=== PATIENT | female | born 1945 | race Caucasian/White ===

== ENCOUNTER → 2016-07-31 | Outpatient (CLI) | payer BC ==
[~2016-07-31] MED LIST: AMX500 PO; ATOR10TA82 PO; CHOL1CAP57 PO; CYAN100020 PO; EVS60 PO; HYDC25 PO; LEVO75TA PO; METFTAB PO; SPIR25TA PO; SYN100 PO; TRAM-10 PO; ZNTT/150 PO
[2016-07-31 09:42] LABS: BASO % 0.5 %; BASO ABS # 0.04 K/uL (0-0.2); COMPLETE YES; EOS % 4.6 %; HEMATOCRIT 43.9 % (37-47); IG% 0.3 %; LYMPH % 29.1 %; MEAN PLATELET VOLUME 10.1 fL (7.4-10.4); NEUT % 51.5 %; PLATELET COUNT 280 K/uL (130-400); RED BLOOD COUNT 4.67 M/uL (4.2-5.4); WHITE BLOOD COUNT 7.56 K/uL (4.8-10.8)
[2016-07-31 10:20] LABS: ALT/SGPT 24 U/L (12-78); AST/SGOT 19 U/L (15-37); BLOOD UREA NITROGEN 17 mg/dl (7-18); BUN/CREATININE RATIO 23.6 (10-20); CALCIUM 9.2 mg/dl (8.5-10.1); CARBON DIOXIDE 33 mmol/L (21-32); CHLORIDE 101 mmol/L (98-107); CREATININE 0.72 mg/dl (0.60-1.20); GLUCOSE 81 mg/dl (70-99); POTASSIUM 3.5 mmol/L (3.5-5.1); SODIUM 138 mmol/L (136-145)
[2016-07-31 10:21] LABS: ESTIMATED AVERAGE GLUCOSE 128 mg/dl; HA1C FLAG Normal (Normal)
[2016-07-31 10:32] LABS: CHOLESTEROL 184 mg/dl (0-200); CHOLESTEROL/HDL RATIO 1.7; HDL CHOLESTEROL 106 mg/dl; LDL CHOLESTEROL CALCULATED 66 mg/dl; THYROID STIMULATING HORMONE 0.238 uIu/ml (0.300-4.500); TRIGLYCERIDES 60 mg/dl (0-150); VERY LOW DENSITY LIPOPROT CALC 12 mg/dl
[2016-07-31 11:04] LABS: RATIO 22.7 mcg/mg (0-30.0)
== END | disposition home or self-care (01) ==
LOC: C.LAB 07:32
PROVIDERS: ATTEND Internal Medicine
DX: E78.5 Hyperlipidemia, unspecified (principal); E11.9 Type 2 diabetes mellitus without complications; M48.00 Spinal stenosis, site unspecified; I10 Essential (primary) hypertension; E03.9 Hypothyroidism, unspecified

== ENCOUNTER → 2016-09-28 | Outpatient (CLI) | payer BC ==
--- NOTE | 2016-09-29 08:09 | MAMMOGRAPHY REPORT ---
BILATERAL DIGITAL SCREENING MAMMOGRAM WITH CAD: 09/28/2016 CLINICAL HISTORY: Routine screening. Patient has no complaints. TECHNIQUE: Current study was also evaluated with a Computer Aided Detection (CAD) system. Bilateral CC and MLO views were obtained. COMPARISON: Prior outside mammograms dated 08/30/2012, 08/26/2014, 08/26/2013, 08/20/2012. BREAST COMPOSITION: There are scattered areas of fibroglandular density in both breasts. FINDINGS: No suspicious masses, calcifications, or areas of architectural distortion are noted in ei ther breast. There has been no significant interval change compared to prior exams. Scattered bilate ral benign-appearing calcifications are again noted. IMPRESSION: ACR BI-RADS CATEGORY 2: BENIGN There is no mammographic evidence of malignancy. A 1 year screening mammogram is recommended. The pa tient will receive written notification of the results. Approximately 10% of breast cancers are not detected with mammography. A negative mammographic report should not delay biopsy if a clinically suggestive mass is present. Lizzeth Stein M.D. ah/:09/28/2016 10:34:42 Lead Driver: Karen Porter RT(R)(M)(BD), [facility] letter sent: Normal 1/2 BI-RADS Code: ACR BI-RADS Category 2: Benign
== END | disposition home or self-care (01) ==
LOC: C.MAMM 09:32
PROVIDERS: ATTEND Obstetrics & Gynecology
DX: Z12.31 Encounter for screening mammogram for malignant neoplasm of breast (principal)

== ENCOUNTER → 2016-12-06 | Outpatient (CLI) | payer BC ==
[~2016-12-06] MED LIST changes: -ATOR10TA82 PO; +ATOR10TA88 PO
--- NOTE | 2016-12-06 11:00 | DIAGNOSTIC IMAGING REPORT ---
CHEST 2 VIEWS ROUTINE HISTORY: 71 years-old Female shortness of breath on exertion. History of prior pneumonia. COMPARISON: Chest radiograph 08/15/2005 TECHNIQUE: Frontal and lateral views of the chest FINDINGS: Cardiac silhouette is within normal limits. There is atherosclerosis of the aorta. Lungs are hyperinflated with diaphragmatic flattening. Patchy lateral right upper lobe opacities are new from 08/15/2005 study. Subsegmental linear opacity of the lingula is seen as well which does suggest atelectasis. No pneumothorax or pleural effusion. Mild biapical pleural-parenchymal scarring is noted. The bones are moderately demineralized appear grossly intact. There is mild convex right curvature of the midthoracic spine. IMPRESSION: e 1. Patchy lateral right upper lobe opacities are new from 08/15/2005 and favors parenchymal scarring, however developing pneumonia may have a similar appearance. 2. lingular atelectasis with background emphysema. The above report was generated using voice recognition software. It may contain grammatical, syntax or spelling errors. Electronically signed by: Tin Almanzar M.D. 12/06/2016 10:58 AM Dictated Date/Time: 12/06/2016 10:55 AM
== END | disposition home or self-care (01) ==
LOC: C.RAD 10:13
PROVIDERS: ATTEND Internal Medicine
DX: J18.9 Pneumonia, unspecified organism (principal); J98.11 Atelectasis; J43.9 Emphysema, unspecified

== ENCOUNTER → 2016-12-06 | Outpatient (CLI) | payer BC ==
[2016-12-06 15:42] LABS: BASO % 0.7 %; BASO ABS # 0.05 K/uL (0-0.2); COMPLETE YES; EOS % 4.2 %; HEMATOCRIT 41.9 % (37-47); LYMPH % 28.3 %; LYMPH ABS # 1.93 K/uL (1.2-3.4); MEAN CELL VOLUME 93.9 fL (80-100); MEAN CORPUSCULAR HEMOGLOBIN 30.7 pg (25-34); MEAN CORPUSCULAR HGB CONC 32.7 g/dl (32-36); MEAN PLATELET VOLUME 9.4 fL (7.4-10.4); MONO % 13.8 %; PLATELET COUNT 281 K/uL (130-400); RED BLOOD COUNT 4.46 M/uL (4.2-5.4); WHITE BLOOD COUNT 6.83 K/uL (4.8-10.8)
== END | disposition home or self-care (01) ==
LOC: C.LAB1850 14:59
PROVIDERS: ATTEND Nurse Practitioner Adult Health
DX: J18.9 Pneumonia, unspecified organism (principal)

== ENCOUNTER → 2016-12-25 | Outpatient (CLI) | payer BC ==
[2016-12-25 09:40] LABS: BASO % 0.6 %; BASO ABS # 0.04 K/uL (0-0.2); COMPLETE YES; EOS % 4.1 %; IG% 0.4 %; LYMPH % 27.7 %; LYMPH ABS # 1.87 K/uL (1.2-3.4); MEAN CELL VOLUME 91.9 fL (80-100); MEAN CORPUSCULAR HEMOGLOBIN 31.5 pg (25-34); MEAN CORPUSCULAR HGB CONC 34.3 g/dl (32-36); MEAN PLATELET VOLUME 9.8 fL (7.4-10.4); MONO % 15.1 %; NEUT % 52.1 %; PLATELET COUNT 287 K/uL (130-400); RED BLOOD COUNT 4.57 M/uL (4.2-5.4); WHITE BLOOD COUNT 6.76 K/uL (4.8-10.8)
[2016-12-25 09:46] LABS: PROTHROMBIN TIME (PATIENT) 10.8 SECONDS (9.0-12.0)
[2016-12-25 09:59] LABS: ESTIMATED AVERAGE GLUCOSE 128 mg/dl; HA1C FLAG Normal (Normal)
[2016-12-25 10:08] LABS: ALKALINE PHOSPHATASE 52 U/L (45-117); ALT/SGPT 20 U/L (12-78); AST/SGOT 23 U/L (15-37); BLOOD UREA NITROGEN 18 mg/dl (7-18); BUN/CREATININE RATIO 25.9 (10-20); CALCIUM 9.5 mg/dl (8.5-10.1); CARBON DIOXIDE 32 mmol/L (21-32); CHLORIDE 102 mmol/L (98-107); CREATININE 0.68 mg/dl (0.60-1.20); GLUCOSE 80 mg/dl (70-99); HDL CHOLESTEROL 86 mg/dl; POTASSIUM 4.3 mmol/L (3.5-5.1); SODIUM 140 mmol/L (136-145)
[2016-12-25 10:18] LABS: CHOLESTEROL 164 mg/dl (0-200); CHOLESTEROL/HDL RATIO 1.9; LDL CHOLESTEROL CALCULATED 67 mg/dl; THYROID STIMULATING HORMONE 0.033 uIu/ml (0.300-4.500); TRIGLYCERIDES 56 mg/dl (0-150); VERY LOW DENSITY LIPOPROT CALC 11 mg/dl
== END | disposition home or self-care (01) ==
LOC: C.LAB 08:00
PROVIDERS: ATTEND Internal Medicine Pulmonary Disease
DX: E11.9 Type 2 diabetes mellitus without complications (principal); E78.5 Hyperlipidemia, unspecified; J18.9 Pneumonia, unspecified organism; E03.9 Hypothyroidism, unspecified

== ENCOUNTER → 2017-01-03 | Outpatient (CLI) | payer BC ==
[~2017-01-03] MED LIST changes: +OPTIRAY 320 IV PRN
--- NOTE | 2017-01-03 08:44 | DIAGNOSTIC IMAGING REPORT ---
CT OF THE CHEST WITH IV CONTRAST CLINICAL HISTORY: J18.9 [id number], shortness of breath COMPARISON STUDY: Chest x-ray dated 12/06/2016 TECHNIQUE: Following the IV administration of 92 mL of Optiray-320, CT of the thorax was performed from the thoracic inlet to the lung bases. Images are reviewed in the axial, sagittal, and coronal planes. IV contrast was administered without complication. A dose lowering technique was utilized adhering to the principles of ALARA. CT DOSE: 184.95 mGycm FINDINGS: Thyroid: Imaged portions of the thyroid gland are normal in appearance. Thoracic aorta: The thoracic aorta is normal in course and caliber, noting standard 3-vessel arch anatomy. No aneurysm or dissection is seen. Pulmonary vasculature: The pulmonary trunk is normal in caliber. There are no central filling defects identified to suggest pulmonary embolus. Note that this examination was not protocoled for the evaluation of pulmonary emboli. HEART: The heart is normal in size and configuration, without pericardial effusion. Lungs and pleural spaces: There is severe pulmonary emphysema. There is a calcified right upper lobe granuloma. There is an irregular flat 21 x 9 mm right upper lobe perifissural opacity, statistically inflammatory/postinflammatory. There is an irregular 16mm subpleural right upper lobe opacity. This corresponds to the chest x-ray abnormality. The appearance favors an area of postinflammatory scarring. The lesion is however nonspecific and close follow-up will be necessary. A three-month follow-up CT scan is recommended. Mediastinum: There is no mediastinal lymphadenopathy. Kisha: Clear. Axilla: Clear. Upper abdomen: There is 16 mm right renal cyst Skeletal structures: There are no lytic or blastic osseous lesions. IMPRESSION: 1. 16 mm irregular right upper lobe subpleural opacity. The appearance favors an area of postinflammatory scarring. The lesion is however nonspecific and [address] scan follow-up is recommended. 2. Irregular flat 21 x 9 mm right upper lobe perifissural opacity. This is likely inflammatory/postinflammatory 3. No evidence of pathologic adenopathy 4. Severe emphysema Electronically signed by: Yandel Reddy M.D. 01/03/2017 8:42 AM Dictated Date/Time: 01/03/2017 8:35 AM
== END | disposition home or self-care (01) ==
LOC: C.CTS 07:59
PROVIDERS: ATTEND Internal Medicine Pulmonary Disease
DX: J18.9 Pneumonia, unspecified organism (principal); R05 Cough; R91.8 Other nonspecific abnormal finding of lung field; J43.9 Emphysema, unspecified

== ENCOUNTER → 2017-01-09 | Day surgery (SDC) | payer BC ==
[2017-01-09] VITALS (14 sets, daily range): BP systolic 114–149; BP diastolic 50–84; PULSE 66–92; TEMP 36–36.6; O2SAT 16–100; Ht 161.3 cm; Wt 51.5 kg
[~2017-01-09] VITALS: Ht 161.3 cm; Wt 51.5 kg
[~2017-01-09] MED LIST changes: +FENTANYL CITRATE INJ 50 MCG/1 ML 2 ML VIAL IV ONE; +MIDAZOLAM HCL 5 MG/ML 1 ML VIAL IV ONE; +NURSING VERBAL MED ORDER ONE; +ONDANSETRON INJ 2 MG/ML 2 ML VIAL ONE; -OPTIRAY 320 IV PRN
--- NOTE | 2017-01-09 06:56 | History and Physical ---
History & Physical Date Jan 09, 2017. Chief Complaint Progressive shortness of breath on exertion History of Present Illness The patient is a 71 year old female with complaints of Progressive shortness of breath on exertion 71-year-old female currently being worked up by Dr. Isaac Danielle with notable shortness of with exertion. 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 Danielle by Dr. Calix for pulmonary evaluation. Patient does have a smoking history of approximately 12 pack per day but quit 25 years prior. 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 More recently she notes said household activities are also making her short of breath and notes in non productive cough over this time as well. She was feeling when down in notably fatigue after withdrawing from tramadol for multiple years secondary to chronic pain when she went to an urgent care center and was given multiple antibiotics including doxycycline and Levaquin. Most of her signs and symptoms improved but was with left with residual cough in this progressive shortness of breath. She has been treated with an albuterol metered dose inhaler along with prednisone, doxycycline, azithromycin with no notable improvement. Chest x-ray on 12/06/2016 showed lingular atelectasis with patchy 2 right upper opacification. A CT of the thorax was obtained 01/03/2017 noting diffuse emphysematous changes with right upper lobe with anterior and posterior infiltrates. Past Medical/Surgical History PmHx: ActiveProblems_10_twCiteListControlStart Abnormal finding on GI tract imaging Carpal tunnel syndrome Cough Cyst of kidney, acquired Dysphagia Gastric ulcer Hearing loss Hyperlipidemia Hypertension Hypothyroidism -post radiation iodine treatment Microalbuminuria Osteoarthritis Osteoporosis Raynaud's disease Serum lipase elevation SOBOE (shortness of breath on exertion) Spinal stenosis Type 2 diabetes mellitus Venous insufficiency (chronic) (peripheral) Past surgical history 1. Need for prophylactic measure 2. History of Oral Surgery Tooth Extraction 3. History of Pilonidal Cyst Resection 4. History of Tonsillectomy 5. History of Total Hip Replacement 6. History of Tubal Ligation Social History Being A Social Drinker Former smoker (Z87.891) Marital History - Currently Occupation: Retired Uses Safety Equipment - Seatbelts Current Meds 1. Calcium + D3 600-200 MG-UNIT Oral Tablet; Take 1 tablet twice daily; 2. Centrum Silver Oral Tablet; TAKE 1 TABLET DAILY; 3. Vitamin B-12 ER 1000 MCG Oral Tablet Extended Release; TAKE 1 TABLET DAILY 4. Atorvastatin Calcium 10 MG Oral Tablet; Take 1 tablet daily; 5. Levothyroxine Sodium 100 MCG Oral Tablet; TAKE 1 TABLET DAILY DIRECTED 6. TraMADol HCl - 50 MG Oral Tablet; TAKE 1 TABLET EVERY 12 HOURS NEEDED; 7. Raloxifene HCl - 60 MG Oral Tablet; Take 1 tablet daily; 8. Amoxicillin 500 MG Oral Capsule; TAKE 4 CAPSULES 1 HOUR PRIOR TO DENTAL 9. Amoxicillin-Pot Clavulanate 875-125 MG Oral Tablet; TAKE 1 TABLET TWICE DAILY 10. Ondansetron HCl - 4 MG Oral Tablet; 1 tabet every 8 hours as needed for nausea; 11. Ventolin HFA 108 (90 Base) MCG/ACT Inhalation Aerosol Solution; INHALE 1 TO 2 PUFFS 12. Gabapentin 300 MG Oral Capsule; TAKE 1 CAPSULE AT BEDTIME; 13. Esther Contour Monitor w/Device Kit; Test once daily as directed. Dx: 250.6; 14. MetFORMIN HCl ER 500 MG Oral Tablet Extended Release 24 Hour; TAKE 4 TABLET 15. HydroCHLOROthiazide 25 MG Oral Tablet; TAKE 1 TABLET DAILY Requested for: 16. Spironolactone 25 MG Oral Tablet; TAKE 1 TABLET DAILY; 17. Vitamin D3 1000 UNIT Oral Tablet; TAKE 2 TABLET Daily; 18. Zantac 150 MG Oral Tablet; TAKE 1 TABLET DAILY IN THE EVENING; Allergies 1. hydrocodone 2. Levaquin 3. Sulfa Drugs Additional History Hepatic Disease: No Endocrine Disorder: No Kidney Disease: No Hypertension: Yes Heart Disease: No Bleeding Tendencies: No Infectious Diseases: No Allergies Coded Allergies: Sulfa Antibiotics (Verified Allergy, Mild, ., 01/03/17) Home Medications Scheduled Amoxicillin (Amoxil *), 2,000 MG PO UD Atorvastatin (Lipitor), 10 MG PO DAILY Cholecalciferol (Vitamin D3), 1,000 INTER.UNIT PO BID Cyanocobalamin (Vitamin B12), 1,000 MCG PO DAILY Hydrochlorothiazide (Hctz *), 25 MG PO DAILY Levothyroxine (Synthroid *), 0.1 MG PO DAILY Metformin Ext Rel (Glucophage Ext Rel), 1,000 MG PO BIDM Raloxifene (Evista *), 60 MG PO DAILY Ranitidine (Zantac), 150 MG PO QPM Spironolactone (Aldactone), 25 MG PO DAILY Tramadol (Ultram), 50 MG PO BID Physical Examination Skin: warm/dry, no rash Eyes: normal inspection, EOMI, sclerae normal ENT: normal ENT inspection, pharynx normal Head: normocephalic, atraumatic Neck: supple, no adenopathy, trachea midline Respiratory/Chest: lungs clear, normal breath sounds, no respiratory distress Cardiovascular: regular rate, rhythm, no edema, no murmur Abdomen / GI: normal bowel sounds, non tender Back: normal inspection Extremities: normal inspection, normal range of motion Neurologic/Psych: no motor/sensory deficits, alert, normal reflexes, oriented x 3 Diagnosis Progressive dyspnea on exertion ASA Classification: ASA Class II Plan of Treatment Flexible bronchoscopy with conscious sedation and bronchial lavage
--- NOTE | 2017-01-09 10:18 | History & Physical Bridge Note ---
H&P Re-Evaluation Bridge Note: I have examined the patient, reviewed the History & Physical and in the interval since the performance of the History & Physical I have noted the following changes of clinical significance: No changes noted
--- NOTE | 2017-01-09 10:19 | Procedure Note ---
Pre-Mod Sedation Assessment General Date of Moderate Sedation: Jan 09, 2017. Vital Signs: Vital Signs Past 12 Hours Date Time Temp Pulse Resp B/P (MAP) Pulse Ox O2 Delivery O2 Flow Rate FiO2 01/09/17 09:20 36.5 79 18 149/69 (95) 97 Room Air Review Cardiovascular: regular rate, rhythm, no edema, no gallop, no JVD, no murmur Abdomen: normal bowel sounds, non tender, soft, no organomegaly Lungs: chest non-tender, lungs clear, normal breath sounds Airway Class: II Pre-Sedation Airway Assessment Oral Cavity: Capped Teeth Short Thick Neck: No Hx of Sleep Apnea: No Smoking Status: Former Smoker Mallampati Classification: Class II ASA Classification: Class II Procedure Planning Contraindications-for Mod Sed: None Yes Notes The planned sedation has been discussed with the patient and consent obtained. I have identified the patient, determined the appropriateness of sedation and have assessed the patient immediately prior to the procedure. All medicine(s) and interventions are by my order.
--- NOTE | 2017-01-09 11:06 | Bronchoscopy Procedure Note ---
Bronchoscopy Procedure Note Procedure: Bronchoscopy, conscious sedation, bronchial lavage right upper lobe Consent: Obtained through the patient placed into the chart Pre-procedural diagnosis: Chronic dyspnea on exertion with associated cough Post-procedural diagnosis: Chronic dyspnea on exertion with associated cough Start time: 1040 End time: 1058 Total time: 18 minutes Analgesia: 2% liquid lidocaine: Via nebulizer 4% gel lidocaine: Via right naris 2% liquid lidocaine: Via bronchoscopy Sedation: Versed IV: 75mg Fentanyl IV: 3 g Zofran IV: 4 mg Procedure: The Olympus video bronchoscope was used for this procedure and passed down through the right naris Right naris/posterior naris/posterior oropharynx: Anatomically within normal limits Glottis: Anatomically within normal limits Vocal cords: Proper abduction and abduction, anatomically within normal limits Subglottis/trachea/Kalee: Anatomically within normal limits Right bronchial tree: Right mainstem bronchus: Anatomically within normal limits Right upper lobe: Anatomically within normal limits Bronchus intermedius: Anatomically within normal limits Right middle lobe: Anatomically within normal limits Right lower lobe: Anatomically within normal limits Findings: No significant findings noted Left bronchial tree: Left mainstem bronchus: Anatomically within normal limits Left upper lobe: Anatomically within normal limits Lingula: Anatomically within normal limits Left lower lobe: Anatomically within normal limits Findings: No significant findings noted Bronchial alveolar lavage: Right upper lobe EBL: None Complications: None Follow-up: In the [facility]
--- NOTE | 2017-01-09 11:09 | Discharge Instructions ---
Discharge Instructions Date of Service Jan 09, 2017. Admission Reason for Admission: Cough, Sob, Pneumonia Discharge Discharge Diagnosis / Problem: progressive dyspnea with associated cough and abnormal changes on CAT scan Discharge Goals Goal(s): Diagnostic testing Activity Recommendations Activity Limitations: resume your previous activity . Current Hospital Diet Patient's current hospital diet: Discharge Diet Recommended Diet: Regular Diet Procedures Procedures Performed: Bronchoscopy, conscious sedation, bronchial washing of the right upper lobe Pending Studies Studies pending at discharge: no Laboratory Results Hemoglobin A1c Test 12/25/16 08:15 Range/Units Estimated Average Glucose 128 mg/dl Hemoglobin A1c 6.1 H 4.5-5.6 % Lipid Panel Test 12/25/16 08:15 Range/Units Triglycerides Level 56 0-150 mg/dl Cholesterol Level 164 0-200 mg/dl HDL Cholesterol 86 mg/dl Cholesterol/HDL Ratio 1.9 LDL Cholesterol, Calculated 67 mg/dl Medical Emergencies . Who to Call and When: Medical Emergencies: If at any time you feel your situation is an emergency, please call 911 immediately. . Non-Emergent Contact Non-Emergency issues call your: Character Impersonator . . "Provider Documentation" section prepared by Juwan Yen. . VTE Core Measure Inpt VTE Proph given/why not?: Treatment not indicated
== END | disposition home or self-care (01) ==
LOC: C.ACU 08:01
PROVIDERS: ATTEND Internal Medicine Critical Care Medicine
DX: R06.00 Dyspnea, unspecified (principal); R05 Cough; I10 Essential (primary) hypertension; E78.5 Hyperlipidemia, unspecified; E89.0 Postprocedural hypothyroidism; R80.9 Proteinuria, unspecified; M81.0 Age-related osteoporosis without current pathological fracture; I73.00 Raynaud's syndrome without gangrene; E11.51 Type 2 diabetes mellitus with diabetic peripheral angiopathy without gangrene; Z87.891 Personal history of nicotine dependence; Z79.899 Other long term (current) drug therapy

== ENCOUNTER → 2017-08-02 | Outpatient (CLI) | payer BC ==
[~2017-08-02] MED LIST changes: +ATOR10TA82 PO; -ATOR10TA88 PO; -FENTANYL CITRATE INJ 50 MCG/1 ML 2 ML VIAL IV ONE; -MIDAZOLAM HCL 5 MG/ML 1 ML VIAL IV ONE; -NURSING VERBAL MED ORDER ONE; -ONDANSETRON INJ 2 MG/ML 2 ML VIAL ONE; +RANI150T85 PO; -SYN100 PO; -ZNTT/150 PO
[2017-08-02 10:10] LABS: BLOOD UREA NITROGEN 17 mg/dl (7-18); CALCIUM 9.6 mg/dl (8.5-10.1); CARBON DIOXIDE 27 mmol/L (21-32); CREATININE 0.72 mg/dl (0.60-1.20); GLUCOSE 77 mg/dl (70-99); POTASSIUM 3.7 mmol/L (3.5-5.1); SODIUM 135 mmol/L (136-145)
[2017-08-02 10:12] LABS: ALT/SGPT 18 U/L (12-78); AST/SGOT 19 U/L (15-37)
== END | disposition home or self-care (01) ==
LOC: C.LAB 08:06
PROVIDERS: ATTEND Internal Medicine
DX: E11.9 Type 2 diabetes mellitus without complications (principal); E78.5 Hyperlipidemia, unspecified

== ENCOUNTER → 2017-08-27 | Outpatient (CLI) | payer BC ==
[2017-08-27 10:35] LABS: HEMOGLOBIN A1C 6.2 % (4.5-5.6)
[2017-08-27 17:13] LABS: CREATININE RANDOM URINE 65.9 mg/dl
== END | disposition home or self-care (01) ==
LOC: C.LAB 08:08
PROVIDERS: ATTEND Internal Medicine
DX: E11.9 Type 2 diabetes mellitus without complications (principal); E78.5 Hyperlipidemia, unspecified; E03.9 Hypothyroidism, unspecified; M81.0 Age-related osteoporosis without current pathological fracture

== ENCOUNTER 2018-12-04 05:37 | Inpatient (IN) ==
--- NOTE | 2018-11-25 14:54 | PAT Medication Instructions ---
Medication Instructions Date of Service November 25, 2018 Home Medications Medication Instructions Recorded metformin ER 500 mg 1,000 mg PO BID #360 tab 11/18/18 tablet,extended release 24 hr atorvastatin 10 mg tablet 10 mg PO HS cholecalciferol (vitamin D3) 1,000 unit capsule 1,000 units PO BID cyanocobalamin (vitamin B-12) 1,000 mcg capsule 1,000 mcg PO QAM fluticasone furoate 200 mcg-vilanterol 25 mcg/dose inhalation powder 1 puffs INH DAILY hydrochlorothiazide 25 mg tablet 25 mg PO QAM ipratropium-albuterol 0.5 mg-3 mg(2.5 mg base)/3 mL nebulization soln 3 ml INH QID PRN levothyroxine 75 mcg capsule 75 mcg PO QAM montelukast 10 mg tablet 10 mg PO QAM ondansetron 4 mg disintegrating tablet 4 mg PO Q8H PRN ranitidine 150 mg tablet 150 mg PO QPM spironolactone 25 mg tablet 25 mg PO QAM tramadol 50 mg tablet 50 mg PO BID multivit with xzccgpdb-kjzt-PY-lutein 8 mg iron-400 mcg-300 mcg tablet 1 tab PO 3XWK metformin ER 500 mg tablet,extended release 24 hr 1,000 mg PO BID amoxicillin 500 mg PO UD PRN calcium carbonate [Calcium 500] 500 mg PO QAM raloxifene [Evista] 60 mg PO QPM Continue as directed amoxicillin 500 mg PO UD PRN (for dental procedures) ASK your prescriber and surgeon raloxifene [Evista] 60 mg PO QPM DO NOT take the morning of surgery cholecalciferol (vitamin D3) 1,000 unit capsule 1,000 units PO BID cyanocobalamin (vitamin B-12) 1,000 mcg capsule 1,000 mcg PO QAM hydrochlorothiazide 25 mg tablet 25 mg PO QAM montelukast 10 mg tablet 10 mg PO QAM spironolactone 25 mg tablet 25 mg PO QAM multivit with wphmkxco-obyi-QY-lutein 8 mg iron-400 mcg-300 mcg tablet 1 tab PO 3XWK metformin ER 500 mg tablet,extended release 24 hr 1,000 mg PO BID calcium carbonate [Calcium 500] 500 mg PO QAM Take morning of surgery With a small sip of water, OTHERWISE NOTHING TO EAT OR DRINK AFTER MIDNIGHT: fluticasone furoate 200 mcg-vilanterol 25 mcg/dose inhalation powder 1 puffs INH DAILY ipratropium-albuterol 0.5 mg-3 mg(2.5 mg base)/3 mL nebulization soln 3 ml INH QID PRN (if needed) levothyroxine 75 mcg capsule 75 mcg PO QAM ondansetron 4 mg disintegrating tablet 4 mg PO Q8H PRN (if needed) tramadol 50 mg tablet 50 mg PO BID Take evening before surgery atorvastatin 10 mg tablet 10 mg PO HS cholecalciferol (vitamin D3) 1,000 unit capsule 1,000 units PO BID ipratropium-albuterol 0.5 mg-3 mg(2.5 mg base)/3 mL nebulization soln 3 ml INH QID PRN (if needed) ondansetron 4 mg disintegrating tablet 4 mg PO Q8H PRN (if needed) ranitidine 150 mg tablet 150 mg PO QPM tramadol 50 mg tablet 50 mg PO BID metformin ER 500 mg tablet,extended release 24 hr 1,000 mg PO BID Other Notes If you have any questions please call us at [phone] or [phone] or [phone] or [phone]
--- NOTE | 2018-11-26 09:38 | Anesthesiology Consultation ---
Date of Service November 26, 2018 Assessment & Plan (1) Encounter for pre-operative examination: - Check BSG AM DOS Chart Review Chart Review: Acceptable Risk for Surgery and Patient seen in Pre Admission Testing Teaching & Discussion Pre-Anesthesia Teaching/Discussion Notes: Instructed NPO after midnight before surgery,except medications with 15 cc of water. Medication instructions provided according to the PAT guidelines. History Surgery Operation Date: 12/04/18 07:30 Proposed Procedures p Robotic Right Video Assisted Thoracoscopy with Right Upper Lobe Wedge Resection, Possible Right Upper Lobectomy with Mediastinal Lymphadenectomy - Hugo Parsons MD, FACS Height/Weight Height: 5 ft 4 in Weight: 54.4 kg Allergies Allergy/AdvReac Type Severity Reaction Status Date / Time Sulfa (Sulfonamide Allergy Severe "ALMOST Verified 11/22/18 15:02 Antibiotics) " levofloxacin [From Levaquin] AdvReac Intermediate UPSET Verified 11/22/18 15:02 STOMACH adhesive AdvReac Mild RASH ON Verified 11/22/18 15:02 SKIN/SKIN IRRITATION Medications Home Medications Medication Instructions Recorded Confirmed Last Taken atorvastatin 10 mg tablet 10 mg PO HS 11/11/18 11/22/18 Unknown cholecalciferol (vitamin D3) 1,000 1,000 units PO BID 11/11/18 11/22/18 Unknown unit capsule cyanocobalamin (vitamin B-12) 1,000 mcg PO QAM 11/11/18 11/22/18 Unknown 1,000 mcg capsule fluticasone furoate 200 1 puffs INH DAILY 11/11/18 11/22/18 Unknown mcg-vilanterol 25 mcg/dose inhalation powder hydrochlorothiazide 25 mg tablet 25 mg PO QAM 11/11/18 11/22/18 Unknown ipratropium-albuterol 0.5 mg-3 3 ml INH QID PRN 11/11/18 11/22/18 Unknown mg(2.5 mg base)/3 mL nebulization soln levothyroxine 75 mcg capsule 75 mcg PO QAM 11/11/18 11/22/18 Unknown montelukast 10 mg tablet 10 mg PO QAM 11/11/18 11/22/18 Unknown ondansetron 4 mg disintegrating 4 mg PO Q8H PRN 11/11/18 11/22/18 Unknown tablet ranitidine 150 mg tablet 150 mg PO QPM 11/11/18 11/22/18 Unknown spironolactone 25 mg tablet 25 mg PO QAM 11/11/18 11/22/18 Unknown tramadol 50 mg tablet 50 mg PO BID 11/11/18 11/22/18 Unknown multivit with 1 tab PO 3XWK 11/12/18 11/22/18 Unknown gicyjdhi-wqya-QN-lutein 8 mg iron-400 mcg-300 mcg tablet metformin ER 500 mg 1,000 mg PO BID #360 tab 11/18/18 11/22/18 Unknown tablet,extended release 24 hr amoxicillin 500 mg PO UD PRN 11/22/18 11/22/18 Unknown calcium carbonate [Calcium 500] 500 mg PO QAM 11/22/18 11/22/18 Unknown raloxifene [Evista] 60 mg PO QPM 11/22/18 11/22/18 Unknown Past Medical History Medical History Osteoarthritis Hypertension H/O gastric ulcer 3 years ago Diabetes type 2, controlled NIDDM COPD (chronic obstructive pulmonary disease) stable; "severe" emphysema per 10/[address] Right upper lobe pulmonary nodule Hearing deficit Hyperlipidemia Hypothyroidism s/p radioactive iodine Skin cancer BCC (nasal, eyelid) Teeth grinding wears mouth guard HS Exercise / Class Metabolic Activity III < 4 Walking/Shop/Light housework Past Family History Family History Mother Diabetes Hypertension Grandmother Diabetes Father Heart disease Brother Heart disease Past Surgical History Surgical History History of carpal tunnel surgery (~04/2012) b/l + removal of b/l "thumb joints" History of bilateral tubal ligation (04/1982) H/O total hip arthroplasty LEFT + LEFT FEMUR/REVISION H/O pilonidal cyst removed 1965 H/O oral surgery GUM (2010), WISDOM/MOLAR TEETH EXTRACTIONS (2012) H/O dilation and curettage History of bronchoscopy History of colonoscopy History of tonsillectomy Past Anesthesia History No Family Hx of Anesthesia Complications and Other LBP "painful"/awareness after prior spinal with hip surgery. No issues with other hip surgeries. History of PONV No Hx of PONV and No Hx of Motion Sickness Social History Smoking Status: Former smoker tobacco type: cigarettes Do You Dip or Chew Tobacco: No Smoking End Date: QUIT 25 YEARS AGO Hx Alcohol Use: Yes alcohol intake frequency: holidays/special occasions only Hx Substance Use: No substance use type: does not use Review of Systems Patient denies chest pain, shortness of breath, reflux, cough, wheezing, palpitations. Physical Exam Vital Signs VITALS BP 118/75 P 66 TEMP 97.7 SP02 97%RA RESP 20 PHYSICAL Full neck and c-spine range of motion. Full TMJ range of motion. TMD 3 finger breaths Mallampati Score 3 Dentition: missing molars, several crowns on sides/molars, upper front right tooth "repaired" Lungs: clear throughout to auscultation Cardiac: regular rate and rhythm, no murmurs noted Spine: normal Carotid arteries: negative bruit Extremities: no edema Testing Laboratory Results 11/26/18 10:04 Blood Type A Positive 11/26/18 10:04 Antibody Screen NEGATIVE 11/26/18 10:04 10/21/18 SODIUM 139 POTASSIUM 3.6 CHLORIDE 100 CO2 31 BUN 20 CREATININE 0.81 GLUCOSE 88 07/31/18 HGBA1C 6.4% Electrocardiogram Date: 11/26/18 NSR at 68bpm. PRWP, consider anterior IA vs. lead placement vs. LVH. No significant change compared to 09/07/11 per cardio. Other Testing Chest CT: 10/17/18: Mild increase in size of an irregular 1.9 cm subpleural opacity within the right upper lobe. This is suspicious for a bronchogenic carcinoma. Scar could appear similar although is considered less likely. No change in an indeterminate 2.1 x 0.7 cm perifissural opacity within the right upper lobe. No thoracic lymphadenopathy. Severe emphysema.
[2018-11-26 11:06] LABS: Basophils # (auto) 0.03 K/uL (0-0.2); Basophils % (auto) 0.4 %; Eosinophils # (auto) 0.17 K/uL (0-0.5); Eosinophils % (auto) 2.1 %; Hemoglobin 13.1 g/dL (12.0-16.0); Immature Granulocytes # (auto) 0.03 K/uL (0.00-0.02); Immature Granulocytes % (auto) 0.4 %; Lymphocytes % (auto) 16.1 %; Mean Corpuscular Hgb Conc 33.6 g/dL (32-36); Mean Corpuscular Volume 92.4 fL (80-100); Mean Platelet Volume 9.6 fL (7.4-10.4); Monocytes # (auto) 0.81 K/uL (0.11-0.59); Neutrophils # (auto) 5.73 K/uL (1.4-6.5); Platelet Count 251 K/uL (130-400); RDW Coefficient of Variation 13.4 % (11.5-14.5); RDW Standard Deviation 44.9 fL (36.4-46.3); Red Blood Count 4.22 M/uL (4.2-5.4); White Blood Count 8.07 K/uL (4.8-10.8)
[2018-12-04] MEDS ORDERED: LR 15ML/HR IV SCH (06:00)
[2018-12-04] MEDS ORDERED: BUPIVACAINE 0.5 % 5 MG/1 ML MPF 30ML VIAL ONE (06:57)
[2018-12-04] MEDS ORDERED: BUPIVACAINE LIPOSOME 1.3% 266 MG/20 ML VIAL ONE (06:58)
[2018-12-04] MEDS ORDERED: SODIUM CHLORIDE 0.9% PF 50 ML VIAL ONE (06:58)
--- NOTE | 2018-12-04 07:00 | History & Physical Bridge Note ---
Date of Service December 04, 2018 History & Physical Bridge Note I have examined the patient, reviewed the History & Physical and in the interval since the performance of the History & Physical I have noted the following changes of clinical significance: no changes noted
[2018-12-04] MEDS ORDERED: LIDOCAINE 2% JELLY 5 ML TUBE ONE (07:01)
[2018-12-04] MEDS ORDERED: fentaNYL citrate 100 MCG/2 ML VIAL ONE ×3 (07:07→11:25)
[2018-12-04] MEDS ORDERED: MIDAZOLAM HCL 1 MG/ML 2ML VIAL ONE (07:07)
[2018-12-04] MEDS ORDERED: ONDANSETRON INJ 2 MG/ML 2 ML VIAL IV PRN ×2 (07:08→13:42)
[2018-12-04] MEDS ORDERED: ATROPINE SULFATE 0.1 MG/ML 10ML SYR IV PRN (07:08)
[2018-12-04] MEDS ORDERED: HYDROmorphone INJ 1 MG/ML SYRINGE IV PRN (07:08)
[2018-12-04] MEDS ORDERED: ePHEDrine sulfate 50 MG/ML AMP IV PRN (07:08)
[2018-12-04] MEDS ORDERED: CEFAZOLIN 1000MG 1,000 MG/7.5 ML SYR IV ONE (09:00)
[2018-12-04] MEDS ORDERED: SURGICEL ABSORB HEMOSTAT 2IN X 14IN TOP ONE (09:36)
[2018-12-04] MEDS ORDERED: DEXAMETHASONE SOD INJ 4 MG/ML VIAL ONE (10:58)
[2018-12-04] MEDS ORDERED: NEOSTIGMINE METHYLSULFATE 5 MG/5 ML SYR ONE (10:58)
[2018-12-04] MEDS ORDERED: PHENYLEPHRINE 100MCG/ML 5ML SYR ONE (10:58)
[2018-12-04] MEDS ORDERED: ePHEDrine sulfate 50 MG/ML SYR ONE (10:58)
[2018-12-04] MEDS ORDERED: ROCURONIUM BROMIDE 10 MG/ML 5 ML VIAL ONE (10:58)
[2018-12-04] MEDS ORDERED: ONDANSETRON INJ 2 MG/ML 2 ML VIAL ONE (10:58)
[2018-12-04] MEDS ORDERED: GLYCOPYRROLATE 0.2 MG/ML VIAL ONE (10:58)
[2018-12-04] MEDS ORDERED: PROPOFOL IV EMULSION 10 MG/ML 20 ML VIAL IV ONE (10:58)
[2018-12-04] MEDS ORDERED: LIDOCAINE HCL 2% 2 ML VIAL/AMP(20MG/ML) INFIL ONE (10:58)
[2018-12-04] MEDS ORDERED: PHENYLEPHRINE HCL 10 MG/ML VIAL ONE (10:58)
--- NOTE | 2018-12-04 11:20 | Post Operative Brief Note ---
PG Immediate Post Op with CF Date of Surgery December 04, 2018 Pre & Post Diagnosis Operation Date: 12/04/18 07:30 Pre-Op Diagnosis: Right Upper Lobe Pulmonary Nodule Post-Op Diagnosis: Adenocarcinoma right upper lobe Procedure Operation Date: 12/04/18 07:30 Actual Procedures p Robotic Right Video Assisted Thoracoscopy with Right Upper Lobe Wedge Resection, Right Upper Lobectomy with Mediastinal Lymphadenectomy(Right) - Hugo Parsons MD, FACS Surgeon Hugo Parsons MD, FACS [employer] Baltazar REYNAGA Estimated Blood Loss 50 Findings Consistent with Post-Op Diagnosis Specimens Specimen Description: FS#1- Right Upper Lobe Wedge (sent to lab at 8:45) A. R9 Lymph node B. R8 Lymph node C. Level 7 Lymph node x's4 D. R10 Lymph node x's6 E. R11 Lymph node x's3 F. R4 Lymph node x's2 G. R2 Lymph node H. R12 Lymph node Drains Chest Tube (24 frisian) and Hall Catheter (16 Georgian Hall catheter inserted by Amber Hargrove RN without difficulty. Clear yellow urine obtained, Anesthesia to monitor)
[2018-12-04] MEDS ORDERED: METOCLOPRAMIDE HCL INJ 5 MG/ML 2 ML VIAL IV ONE (11:32)
[2018-12-04] MEDS: fentaNYL citrate 100 MCG/2 ML VIAL IV PRN ×2 (11:58→12:03)
--- NOTE | 2018-12-04 12:09 | XRay Report ---
XR chest 1V portable CLINICAL HISTORY: 73 years-old Female presenting with RUL. TECHNIQUE: Portable upright AP view of the chest was obtained. COMPARISON: Chest CT from 10/17/2018. FINDINGS: Large bore right pleural drain now in place. Atherosclerosis of the aortic arch. Cardiac silhouette n ormal in size. Lungs are hyperinflated. Heterogeneous radiolucency of the lungs. Lower right lung vol ume consistent with the reported right upper lobectomy. Right basilar opacity. Suture margin noted at the right apex. Small right apical pneumothorax evident. No large pleural effusion. Osseous structur es normal. Upper abdomen normal. IMPRESSION: 1. Small right pneumothorax with the right pleural drain in place. 2. Postsurgical changes of right upper lobectomy. 3. Right basilar atelectasis. Electronically signed by: Mike Horvath M.D. 12/04/2018 12:08 PM
--- NOTE | 2018-12-04 12:41 | Operative Report ---
DATE OF OPERATION: 12/04/2018 PREOPERATIVE DIAGNOSIS: Enlarging hypermetabolic mass, right upper lobe. POSTOPERATIVE DIAGNOSIS: Adenocarcinoma, right upper lobe. PROCEDURES: 1. Robot-assisted thoracoscopic wedge resection, right upper lobe mass. 2. Robot-assisted thoracoscopic right upper lobectomy. 3. Robot-assisted thoracoscopic mediastinal lymphadenectomy. SURGEON: Hugo Parsons MD. VEGETABLE PREPARER: RONNELL Solis (Mr. Pizarro was present for the entire case and was at the patient's bedside while I was at the console. He stayed for the entirety of the case). ANESTHESIA: General anesthesia, endotracheal intubation using double lumen tube. SPECIFICS OF PROCEDURE AND FINDINGS: Susie Gallardo is a 73-year-old female, has a history of cigarette smoking in the past who has a mass, which has been followed in her right upper lobe, which is enlarged and hypermetabolic. It did not appear that she had any evidence of extrathoracic spread. On 12/04/2018, the patient was brought to the operating room and underwent an uncomplicated wedge resection, and frozen section showed this to be an adenocarcinoma consistent with lung primary. We then proceeded with an uncomplicated right upper lobectomy robotically with mediastinal lymphadenectomy. She did very well with this and was extubated in the room with negligible blood loss. DESCRIPTION OF PROCEDURE: The patient was brought to the operating room, laid in supine position. General anesthesia induced and endotracheal intubation was performed with a double lumen tube. The patient was then positioned in the left lateral decubitus position, right chest prepped and draped in usual sterile fashion. One lung ventilation ensued. A timeout had been called and antibiotics given. An incision was made just anterior to the mid axillary line at about the eighth interspace. A 5 mm port was placed and we were able to see there were few adhesions, but by and large this was not bad. We placed an 8 mm port anteriorly just above the costal margin and about the same interspace and then using a cautery, we lysed these adhesions. These were very flimsy. The mass was not growing into the chest wall as we suspect it may be the case from her CT scan. After we freed up the adhesions, we then placed another 8 mm port about 10 cm lateral to the camera port. Camera port was changed over to a 12 mm port. We then put a 5 mm port in the paraspinous area at about the ninth interspace a few centimeters from the transverse processes. Assistance port was placed, which was a 15 mm port just above the costal margin anteriorly. Upon entering, we could see the mass as it imbricated the pleura. We pulled it up and using Endo-PAUL stapler, fired several times. We were able to remove this mass in an Endobag. This was sent for frozen section. While the frozen section was being performed, I took down the inferior pulmonary ligament and biopsied the level 9 and level 8 nodes; these were small. My dissection proceeded superiorly and I got up to the azygos vein. A large packet containing several nodes was removed from the level 7 area and dissected out posteriorly quite well and went up above the azygos vein and dissected out level 2 and level 4 nodes and came down anteriorly and dissected out multiple level 10 nodes below the azygos vein. This identified the artery quite nicely. Frozen section came back as adenocarcinoma and we elected to proceed with a lobectomy. The pulmonary veins were dissected out and we could see the branch going to the middle lobe. The fissures were a bit incomplete. We then fired Endo-PAUL stapler to divide the upper lobe. This freed up the area nicely and we could see a large apical anterior branch of the pulmonary artery. This was divided with Endo-PAUL stapler. The bronchus was very large. We cleaned it off by removing all lymph nodes around and biopsied several level 11 and level 12 nodes in addition. We then came down and we had freed up the bronchus anteriorly as well as laterally and posteriorly. The bronchus was large. We then flipped the lung back over so that it was being retracted anteriorly and we took down more adhesions and dissected this out and then finally was able to fire an Endo-PAUL stapler across the bronchus. The patient's posterior ascending artery or A3 segmental artery came off of the apical anterior trunk. This looked quite good. We were able to fire an Endo-PAUL stapler across the fissures and completed this anteriorly and posteriorly. We then checked for bleeding and especially for air leaks by inflating the lung. We did not see any evidence of an air leak. We then placed the specimen in an Endobag. It should be noted that we mixed 266 mg of Exparel and 20 mL of solution with 30 mL of 0.5% bupivacaine and 250 mL of normal saline. We then injected this into each of the 5 port sites before we made them. We then did an intercostal block from the 2nd to the 12th rib by injecting in the interspace thoracoscopically and filling the entire space. At the conclusion of the case, we closed the muscle layers of the 12 mm camera port and surgical dental assistant port with 0 Vicryl. We then placed a 24-Telugu chest tube in the inferior port and directed towards the apex and sutured it in place with heavy silk suture. The skin was reapproximated using 4-0 Monocryl in running subcuticular fashion. The patient had a tiny air leak at the conclusion of the case. She was extubated in the room with negligible blood loss. She tolerated it very well. I attest to the content of the Intraoperative Record and any orders documented therein. Any exception s are noted below.
[2018-12-04] MEDS ORDERED: MoRPHine SULFATE 2 MG/ML CARP IV PRN (13:42)
[2018-12-04] MEDS ORDERED: ALBUT/IPRATROP 3MG/0.5MG NEB 3 ML VIAL INH PRN (13:42)
--- NOTE | 2018-12-04 14:19 | Anesthesiology Progress Note ---
Date of Service December 04, 2018 Anesthesia Post Procedure Vital Signs Vital Signs: Temp Pulse Pulse Resp BP Pulse Ox 12/04/18 14:06 36.3 C L 85 18 107/63 100 12/04/18 13:15 81 21 99/54 L 100 12/04/18 13:00 36.4 C L 76 15 107/55 L 100 12/04/18 12:50 72 16 100/55 L 100 12/04/18 12:40 74 20 112/58 L 100 12/04/18 12:30 73 21 107/57 L 100 12/04/18 12:20 36.2 C L 75 18 105/61 100 12/04/18 12:10 73 21 122/56 L 100 12/04/18 12:00 75 15 123/63 100 12/04/18 11:50 72 17 134/67 100 12/04/18 11:40 73 20 123/63 100 12/04/18 11:34 36.0 C L 98 H 15 133/78 100 12/04/18 06:24 36.6 C 66 20 131/81 95 Pain Intensity Upper Back: Pain Intensity: 4 Transfer of Care Handoff Completed per policy Notes Mental Status: alert / awake / arousable and participated in evaluation Patient Amnestic to Procedure: Yes Nausea / Vomiting: adequately controlled Pain: adequately controlled Airway Patency, RR, SpO2: stable & adequate BP & HR: stable & adequate Hydration State: stable & adequate Anesthetic Complications: no major complications apparent and Pt Satisfied with anesthetic care
[2018-12-04] MEDS: SODIUM CHLORIDE 0.9% 1000ML 1,000 ML IV SCH (14:36)
[2018-12-04] MEDS: INSULIN ASPART 100 UNITS/ML 3 ML PEN SC SCH ×3 (14:46→21:29)
[2018-12-04] MEDS: ACETAMINOPHEN 1,000 MG/100 ML VIAL IV SCH ×2 (15:44→22:30)
[2018-12-04] MEDS: DULERA: ORDER AWAITING ACTION SCH ×2 (15:45→23:44)
[2018-12-04] MEDS: METOCLOPRAMIDE HCL INJ 5 MG/ML 2 ML VIAL IV SCH (21:29)
[2018-12-04] MEDS: DOCUSATE SODIUM 100 MG CAP PO SCH (21:29)
[2018-12-04] MEDS: RALOXIFENE HCL 60 MG TAB PO SCH (21:29)
[2018-12-04] MEDS: ATORVASTATIN 10 MG TAB PO SCH (21:29)
[2018-12-05] MEDS: METOCLOPRAMIDE HCL INJ 5 MG/ML 2 ML VIAL IV SCH (03:55)
[2018-12-05] MEDS: SODIUM CHLORIDE 0.9% 1000ML 1,000 ML IV SCH (03:55)
[2018-12-05] MEDS: OXYCODONE HCL IR 5 MG TAB (IMMEDIATE RELEASE) PO PRN (04:03)
[2018-12-05] MEDS: ACETAMINOPHEN 1,000 MG/100 ML VIAL IV SCH (06:21)
[2018-12-05] MEDS: LEVOTHYROXINE SODIUM 75 MCG TABLET PO SCH (06:21)
[2018-12-05 06:24] LABS: Basophils # (auto) 0.02 K/uL (0-0.2); Basophils % (auto) 0.1 %; Eosinophils # (auto) 0.01 K/uL (0-0.5); Eosinophils % (auto) 0.1 %; Hematocrit (blood only) 35.4 % (37-47); Hemoglobin 12.1 g/dL (12.0-16.0); Immature Granulocytes # (auto) 0.04 K/uL (0.00-0.02); Immature Granulocytes % (auto) 0.3 %; Lymphocytes # (auto) 1.14 K/uL (1.2-3.4); Lymphocytes % (auto) 7.5 %; Mean Corpuscular Hemoglobin 31.3 pg (25-34); Mean Corpuscular Volume 91.7 fL (80-100); Monocytes # (auto) 1.76 K/uL (0.11-0.59); Monocytes % (auto) 11.6 %; Neutrophils % (auto) 80.4 %; Platelet Count 231 K/uL (130-400); RDW Coefficient of Variation 13.5 % (11.5-14.5); RDW Standard Deviation 44.8 fL (36.4-46.3); Red Blood Count 3.86 M/uL (4.2-5.4); White Blood Count 15.17 K/uL (4.8-10.8)
[2018-12-05 06:30] LABS: Mean Corpuscular Hgb Conc 34.2 g/dL (32-36)
[2018-12-05 06:35] LABS: INR 1.1 (0.9-1.1); Partial Thromboplastin Ratio 0.9; Partial Thromboplastin Time 24.2 Seconds (21.0-31.0); Prothrombin Time 10.9 Seconds (9.0-12.0)
[2018-12-05 06:39] LABS: BUN Creatinine Ratio 17.7 (10-20); Calcium 8.4 mg/dl (8.5-10.1); Creatinine Clr Calc Pharmacy 51.8 ml/min; Est GFR (African American) 84.8; Est GFR (Non-African American) 73.1; Potassium 4.1 mmol/L (3.5-5.1)
--- NOTE | 2018-12-05 07:29 | XRay Report ---
XR chest 1V portable HISTORY: Right upper lobectomy. Postop. COMPARISON: Chest 12/04/2018. FINDINGS: Right chest tube terminates in the right lung apex, unchanged. Suture material within the r ight upper lung zone consistent with postoperative change. Small right pneumothorax is unchanged comp ared to the prior study. There is right-sided chest wall subcutaneous emphysema. Mild chronic interst itial thickening. Emphysema. No pleural effusions. The heart is normal in size. Right hilar fullness favors a postoperative change. IMPRESSION: No change in the right-sided pneumothorax status post right upper lobectomy. Right-sided chest tube r emains unchanged in position. Electronically signed by: Deon Milan M.D. 12/05/2018 7:27 AM
--- NOTE | 2018-12-05 07:55 | Anesthesiology Progress Note ---
Date of Service December 05, 2018 Anesthesia Post Procedure Vital Signs Vital Signs: Temp Pulse Pulse Pulse Resp BP Pulse Ox 12/05/18 06:27 96 12/05/18 04:00 36.4 C L 75 16 128/74 100 12/05/18 01:30 36.7 C 75 16 112/62 97 12/04/18 23:39 36.8 C 77 16 109/64 98 12/04/18 18:41 36.6 C 79 20 130/71 96 12/04/18 16:24 36.7 C 80 18 110/58 L 97 12/04/18 15:30 36.7 C 72 18 115/71 100 12/04/18 14:29 82 16 126/72 100 12/04/18 14:06 36.3 C L 85 18 107/63 100 12/04/18 13:30 36.5 C 81 16 103/61 100 12/04/18 13:15 81 21 99/54 L 100 12/04/18 13:00 36.4 C L 76 15 107/55 L 100 12/04/18 12:50 72 16 100/55 L 100 12/04/18 12:40 74 20 112/58 L 100 12/04/18 12:30 73 21 107/57 L 100 12/04/18 12:20 36.2 C L 75 18 105/61 100 12/04/18 12:10 73 21 122/56 L 100 12/04/18 12:00 75 15 123/63 100 12/04/18 11:50 72 17 134/67 100 12/04/18 11:40 73 20 123/63 100 12/04/18 11:34 36.0 C L 98 H 15 133/78 100 Pain Intensity Upper Back: Pain Intensity: 4 Right Shoulder: Pain Intensity: 5 Right Chest: Pain Intensity: 4 Notes Mental Status: alert / awake / arousable and participated in evaluation Patient Amnestic to Procedure: Yes Nausea / Vomiting: adequately controlled Pain: adequately controlled Airway Patency, RR, SpO2: stable & adequate BP & HR: stable & adequate Hydration State: stable & adequate Anesthetic Complications: no major complications apparent and Pt Satisfied with anesthetic care
[2018-12-05] MEDS: DULERA: ORDER AWAITING ACTION SCH ×3 (08:22→23:14)
[2018-12-05] MEDS: MONTELUKAST SODIUM 10 MG TABLET PO SCH (08:36)
[2018-12-05] MEDS: DOCUSATE SODIUM 100 MG CAP PO SCH ×2 (08:36→20:26)
[2018-12-05] MEDS: INSULIN ASPART 100 UNITS/ML 3 ML PEN SC SCH ×4 (08:37→21:50)
[2018-12-05] MEDS: ACETAMINOPHEN 325 MG TAB PO SCH ×3 (08:39→20:26)
[2018-12-05] MEDS: ENOXAPARIN INJ 40 MG/0.4 ML SYR SQ SCH (08:39)
--- NOTE | 2018-12-05 18:50 | Progress Note ---
DATE: 12/05/2018 The patient was seen today on 12/05/2018. She is 1 day status post a robot-assisted thoracoscopic right upper lobectomy for an adenocarcinoma. The patient had a quiet night. She is on 2 liters of O2 with good saturations. She is ambulating in the hallways, tolerating a diet. She is having some pain in her upper back, but otherwise I have been quite pleased with her. Her x-ray shows full expansion with some subcutaneous emphysema; however, the patient now has an air leak that she did not have at the time of surgery. She had a tiny intermittent air leak at conclusion of the case last night when I saw her. Today it is larger. I am concerned about this and explained to the patient that this may be a problem that requires a return to the Operating Room. I turned her suction down to 10 cm. We stopped her IV as she is urinating. We will keep her ambulating. Otherwise, she looks better. My hope is that this leak will seal in the next few days.
[2018-12-05] MEDS: RALOXIFENE HCL 60 MG TAB PO SCH (20:27)
[2018-12-05] MEDS: ATORVASTATIN 10 MG TAB PO SCH (20:27)
[2018-12-06] MEDS: ACETAMINOPHEN 325 MG TAB PO SCH ×4 (01:42→22:17)
[2018-12-06] MEDS: LEVOTHYROXINE SODIUM 75 MCG TABLET PO SCH (06:15)
[2018-12-06] MEDS: DULERA: ORDER AWAITING ACTION SCH ×2 (07:26→17:26)
--- NOTE | 2018-12-06 07:32 | XRay Report ---
XR chest 1V portable CLINICAL HISTORY: s/p RUL postoperative COMPARISON STUDY: 12/05/2018 FINDINGS: Moderate interval increase in volume of right apical pneumothorax. Maximum pleural separati on currently is 4.8 cm. Subcutaneous emphysematous change is slightly increased in prominence. Mild bibasilar atelectatic changes similar. Right-sided chest tube is noted. IMPRESSION: 1. Right apical pneumothorax with a maximum pleural separation of 4.8 cm. 2. Slight increase in subcutaneous emphysematous change. The above report was generated using voice recognition software. It may contain grammatical, syntax or spelling errors. Electronically signed by: Mahesh Alberto M.D. 12/06/2018 7:30 AM
[2018-12-06] MEDS: FLUTICASONE/VILANTEROL INHALER INH SCH (09:18)
[2018-12-06] MEDS: DOCUSATE SODIUM 100 MG CAP PO SCH ×2 (09:18→22:16)
[2018-12-06] MEDS: ENOXAPARIN INJ 40 MG/0.4 ML SYR SQ SCH (09:19)
[2018-12-06] MEDS: MONTELUKAST SODIUM 10 MG TABLET PO SCH (09:25)
[2018-12-06] MEDS: INSULIN ASPART 100 UNITS/ML 3 ML PEN SC SCH ×4 (09:48→22:18)
[2018-12-06] MEDS: OXYCODONE HCL IR 5 MG TAB (IMMEDIATE RELEASE) PO PRN (17:33)
--- NOTE | 2018-12-06 18:20 | Progress Note ---
DATE: 12/06/2018 Ms. Gallardo was seen today. She looks great. She is on room air. She is ambulating in the hallway and tolerating a diet. The only problem is she has a significant leak. I think it is a bit smaller than yesterday. I am going to give her another day or two and then I am going to take her to the operating room and evaluate whether she has had a staple line breakdown. Otherwise, I think she looks quite good. I had a long talk with the patient and her today.
[2018-12-06] MEDS: ATORVASTATIN 10 MG TAB PO SCH (22:16)
[2018-12-06] MEDS: RALOXIFENE HCL 60 MG TAB PO SCH (22:16)
[2018-12-07] MEDS: DULERA: ORDER AWAITING ACTION SCH ×4 (00:27→23:21)
[2018-12-07] MEDS: ACETAMINOPHEN 325 MG TAB PO SCH ×4 (03:14→20:01)
[2018-12-07] MEDS: LEVOTHYROXINE SODIUM 75 MCG TABLET PO SCH (05:36)
--- NOTE | 2018-12-07 08:02 | Progress Note ---
DATE: 12/07/2018 Susie Gallardo was seen today on 12/07/2018. She is now postop day 3 status post a right upper lobectomy for a nonsmall cell lung carcinoma. She looks great. She is on room air. Ambulating in the hallway. Tolerating a house diet. New problem is she has an air leak. Having said that, it is definitely smaller today than yesterday. It is intermittent now. We will check a chest x-ray in the morning. She sounds good and I am quite pleased with her clinically. If she is not improved significantly, I may go ahead and take her back to the operating room, but we will see how things look in the morning.
[2018-12-07] MEDS: INSULIN ASPART 100 UNITS/ML 3 ML PEN SC SCH ×4 (09:48→20:37)
[2018-12-07] MEDS: DOCUSATE SODIUM 100 MG CAP PO SCH ×2 (09:49→20:33)
[2018-12-07] MEDS: FLUTICASONE/VILANTEROL INHALER INH SCH (09:49)
[2018-12-07] MEDS: MONTELUKAST SODIUM 10 MG TABLET PO SCH (09:49)
[2018-12-07] MEDS: ENOXAPARIN INJ 40 MG/0.4 ML SYR SQ SCH (09:49)
[2018-12-07] MEDS: ATORVASTATIN 10 MG TAB PO SCH (20:33)
[2018-12-07] MEDS: RALOXIFENE HCL 60 MG TAB PO SCH (20:33)
[2018-12-08] MEDS: ACETAMINOPHEN 325 MG TAB PO SCH ×4 (03:16→20:18)
[2018-12-08] MEDS: LEVOTHYROXINE SODIUM 75 MCG TABLET PO SCH (05:52)
[2018-12-08] MEDS: DULERA: ORDER AWAITING ACTION SCH ×2 (08:10→15:31)
--- NOTE | 2018-12-08 08:29 | XRay Report ---
XR chest 1V portable HISTORY: Postop. lobectomy COMPARISON: Chest 12/06/2018. FINDINGS: Right-sided chest tube terminates in the right lung apex. Decrease in size in the small to moderate right apical pneumothorax. This now measures a maximal pleural gap of 3.3 cm. Right basilar densities and a small right pleural effusion have improved. Emphysema. The left lung is essentially c lear. The heart is normal in size. Right chest wall subcutaneous emphysema has slightly progressed. IMPRESSION: Decrease in size in the small to moderate right pneumothorax. The right-sided chest tube appears in g ood position. Electronically signed by: Deon Milan M.D. 12/08/2018 8:27 AM
[2018-12-08] MEDS: ENOXAPARIN INJ 40 MG/0.4 ML SYR SQ SCH (08:52)
[2018-12-08] MEDS: DOCUSATE SODIUM 100 MG CAP PO SCH ×2 (08:52→20:18)
[2018-12-08] MEDS: FLUTICASONE/VILANTEROL INHALER INH SCH (08:52)
[2018-12-08] MEDS: MONTELUKAST SODIUM 10 MG TABLET PO SCH (08:53)
[2018-12-08] MEDS: INSULIN ASPART 100 UNITS/ML 3 ML PEN SC SCH ×4 (09:24→21:08)
--- NOTE | 2018-12-08 12:14 | Progress Note ---
DATE: 12/08/2018 Susie Gallardo was seen today on 12/08/2018. We are now postop day #4 status post thoracoscopic right upper lobectomy robotically. I am quite pleased with her. Her air leak is definitely smaller. I tentatively plan to take her back to the operating room tomorrow and repair this air leak, but at this point she looks good to me. She does have some subcutaneous emphysema, but her drainage from her chest tube is minimal and I see great improvement in her air leak. Her x-ray also showed essentially full expansion of her lung. At this point, we are going to continue on. We will see how she looks in the morning. There is still a chance I may take her to the operating room for a thoracoscopic evaluation.
[2018-12-08] MEDS: ATORVASTATIN 10 MG TAB PO SCH (20:18)
[2018-12-08] MEDS: RALOXIFENE HCL 60 MG TAB PO SCH (20:18)
[2018-12-09] MEDS: DULERA: ORDER AWAITING ACTION SCH ×3 (00:54→15:29)
[2018-12-09] MEDS: ACETAMINOPHEN 325 MG TAB PO SCH ×4 (02:11→20:01)
[2018-12-09] MEDS: LEVOTHYROXINE SODIUM 75 MCG TABLET PO SCH (05:14)
[2018-12-09] MEDS ORDERED: Nursing to Pharmacy Communication ONE ×2 (05:18→08:40)
[2018-12-09] MEDS ORDERED: GLUCOSE 40% GEL 15 GM TUBE PO PRN (05:30)
[2018-12-09] MEDS ORDERED: GLUCAGON FOR INJ 1 MG VIAL IM PRN (05:30)
[2018-12-09] MEDS ORDERED: GLUCOSE 10 TABS/TUBE PO PRN (05:30)
[2018-12-09] MEDS ORDERED: DEXTROSE 50% 50 ML SYRINGE IV PRN (05:30)
[2018-12-09] MEDS ORDERED: CARBOHYDRATES FOR HYPOGLYCEMIA PO PRN (05:30)
[2018-12-09] MEDS ORDERED: INSULIN ASPART 100 UNITS/ML 3 ML PEN SC SCH (06:00)
--- NOTE | 2018-12-09 06:51 | XRay Report ---
XR chest 1V portable CLINICAL HISTORY: 73 years-old Female presenting with f/u. TECHNIQUE: Portable upright AP view of the chest was obtained. COMPARISON: 12/08/2018. FINDINGS: Large bore right pleural drain terminates at the right apex. Extensive associated soft tissue emphyse ma along the right lateral chest wall and right base the neck. Atherosclerosis of the aortic arch. Ca rdiac silhouette top normal in size. Postsurgical changes of the right lung with suture margin is in the right hilum and right apex. Architectural distortion of the right lung base. Heterogeneous radiol ucency of the lungs. No new focal opacity. Slight decreased size of the right apical pneumothorax. Os seous structures normal. Upper abdomen normal. IMPRESSION: 1. Slight decreased size of the small right apical pneumothorax with the right pleural drain in plac e. 2. Postsurgical changes of the right lung. 3. Emphysema. Electronically signed by: Mike Horvath M.D. 12/09/2018 6:50 AM
[2018-12-09] MEDS: FLUTICASONE/VILANTEROL INHALER INH SCH (08:59)
[2018-12-09] MEDS: MONTELUKAST SODIUM 10 MG TABLET PO SCH (08:59)
[2018-12-09] MEDS: DOCUSATE SODIUM 100 MG CAP PO SCH ×2 (09:00→20:01)
[2018-12-09] MEDS: INSULIN ASPART 100 UNITS/ML 3 ML PEN SC SCH ×4 (09:15→20:59)
[2018-12-09] MEDS: ENOXAPARIN INJ 40 MG/0.4 ML SYR SQ SCH (09:28)
--- NOTE | 2018-12-09 09:44 | Progress Note ---
DATE: 12/09/2018 Ms. Gallardo was seen today on 12/09/2018. Her air leak is definitely improved, so I am going to hold off taking her back to the operating room. She looks fine. I think her subQ emphysema is a bit less. The x-ray shows a small pneumothorax. Her air leak is definitely improved, however. I had a long talk with the patient and her . We will continue with our current therapy.
[2018-12-09] MEDS: RALOXIFENE HCL 60 MG TAB PO SCH (20:01)
[2018-12-09] MEDS: ATORVASTATIN 10 MG TAB PO SCH (20:01)
[2018-12-10] MEDS: DULERA: ORDER AWAITING ACTION SCH ×3 (00:22→19:17)
[2018-12-10] MEDS: ACETAMINOPHEN 325 MG TAB PO SCH ×4 (02:16→20:53)
[2018-12-10] MEDS: LEVOTHYROXINE SODIUM 75 MCG TABLET PO SCH (06:06)
[2018-12-10] MEDS: FLUTICASONE/VILANTEROL INHALER INH SCH (08:22)
[2018-12-10] MEDS: DOCUSATE SODIUM 100 MG CAP PO SCH ×2 (08:26→20:53)
[2018-12-10] MEDS: MONTELUKAST SODIUM 10 MG TABLET PO SCH (08:26)
[2018-12-10] MEDS: ENOXAPARIN INJ 40 MG/0.4 ML SYR SQ SCH (08:27)
[2018-12-10] MEDS: INSULIN ASPART 100 UNITS/ML 3 ML PEN SC SCH ×4 (08:44→21:09)
--- NOTE | 2018-12-10 12:07 | Progress Note ---
DATE: 12/10/2018 The patient was seen today. She looks great. She is ambulating. She is eating a house diet and has moved her bowels. She is afebrile with stable vital signs. She still has a persistent, but smaller air leak. The patient has drained very little from her chest tube. She put out a total of probably 30 mL. We are going to put a Heimlich valve on her today and may let her go home tomorrow. The patient's pathology was reviewed. Unfortunately, it is a bit surprising her level 2 and 4 nodes on the right are positive. Unfortunately, this makes her a stage IIIA. We have clean margins, but she is going to require adjuvant therapy once she is discharged and recovers.. TOSHIAD
[2018-12-10] MEDS: ATORVASTATIN 10 MG TAB PO SCH (20:53)
[2018-12-10] MEDS: RALOXIFENE HCL 60 MG TAB PO SCH (20:53)
[2018-12-11] MEDS: DULERA: ORDER AWAITING ACTION SCH ×2 (00:22→08:28)
[2018-12-11] MEDS: ACETAMINOPHEN 325 MG TAB PO SCH ×2 (01:42→08:26)
[2018-12-11] MEDS: LEVOTHYROXINE SODIUM 75 MCG TABLET PO SCH (05:31)
--- NOTE | 2018-12-11 07:11 | XRay Report ---
XR chest 1V portable CLINICAL HISTORY: pneumothorax COMPARISON STUDY: 12/09/2018 FINDINGS: There is radiographic evidence of severe pulmonary emphysema. There is extensive right-side d subcutaneous emphysema. A right-sided chest tube is again visualized. There is minor blunting of th e right lateral costophrenic angle. There is an enlarging right apical pneumothorax with pleural sepa ration of 6 cm.[ IMPRESSION: 1. No significant change in the position of the right-sided chest tube 2. Increasing right apical pneumothorax with pleural separation of 6 cm 3. Underlying pulmonary emphysema 4. Extensive right-sided subcutaneous emphysema Electronically signed by: Yandel Reddy M.D. 12/11/2018 7:10 AM
[2018-12-11 07:51] VITALS: BP 128/72; TEMP 97.9; O2SAT 95
[2018-12-11] MEDS: INSULIN ASPART 100 UNITS/ML 3 ML PEN SC SCH ×2 (08:24→12:50)
[2018-12-11] MEDS: MONTELUKAST SODIUM 10 MG TABLET PO SCH (08:26)
[2018-12-11] MEDS: DOCUSATE SODIUM 100 MG CAP PO SCH (08:26)
[2018-12-11] MEDS: FLUTICASONE/VILANTEROL INHALER INH SCH (08:26)
[2018-12-11] MEDS: ENOXAPARIN INJ 40 MG/0.4 ML SYR SQ SCH (08:30)
[2018-12-11 10:30] VITALS: PULSE 85
--- NOTE | 2018-12-12 01:26 | Discharge Summary ---
DATE OF ADMISSION: 12/04/2018 DATE OF DISCHARGE: 12/11/2018 DISCHARGE DIAGNOSES: 1. Stage IIIA (T2N2M0) adenocarcinoma, right upper lobe. 2. Diabetes mellitus. 3. Hypertension. 4. Gastric ulcers. 5. Chronic obstructive pulmonary disease. HOSPITAL COURSE: Susie Gallardo is a delightful 73-year-old female who had a mass which was enlarging in her right upper lobe. PET scan showed some hypermetabolic activity; however, she really had no lymphadenopathy. We did not have a diagnosis and I took the patient to the operating room and wedged this out. It was an adenocarcinoma. On 12/04/2018, I performed a robot-assisted thoracoscopic wedge resection with frozen section and a robot-assisted thoracoscopic right upper lobectomy with mediastinal lymphadenectomy. The patient did very well and I was surprised to see she had a fairly significant air leak the following day. I went back and forth about whether or not I should take her back to the operating room, but her leak got smaller. After a long talk with the patient and her , I elected to proceed with use of a Heimlich valve with the discharge. I will see her back tomorrow in the office with an x-ray. She was discharged home on 12/11/2018. Unfortunately, the patient's level 2 and level 4 lymph nodes had microscopic metastatic disease. She has a stage IIIA adenocarcinoma in the right upper lobe. She had clean resection margins. The patient has asked to be seen by Dr. Kermit Estrada and we will set that up. The patient was discharged today on 12/11/2018. I will see her back in the office tomorrow with an x-ray. She does have a small air leak and has incomplete expansion of her lung with a small apical pneumothorax, but quite frankly I think she looks wonderful. We will see her back in the office tomorrow.
== END 2018-12-11 14:13 | disposition home or self-care (01) | DRG 164 ==
LOC: ASU 05:37 → 3W 11:23

== ENCOUNTER 2018-12-26 09:49 | Inpatient (IN) ==
--- NOTE | 2018-12-24 15:15 | Anesthesiology Consultation ---
Date of Service December 24, 2018 Assessment & Plan (1) Encounter for pre-operative examination: Chart Review Chart Review: Acceptable Risk for Surgery and Patient NOT seen in Pre Admission Testing Consults Requested none History Surgery Operation Date: 12/26/18 11:30 Proposed Procedures p Right Video Assisted Thoracoscopy with Repair of Air Leak - Hugo Parsons MD, FACS Height/Weight Height: 5 ft 4 in Weight: 54.431 kg Allergies Allergy/AdvReac Type Severity Reaction Status Date / Time Sulfa (Sulfonamide Allergy Severe "ALMOST Verified 12/24/18 14:55 Antibiotics) " levofloxacin [From Levaquin] AdvReac Intermediate UPSET Verified 12/24/18 14:55 STOMACH adhesive AdvReac Mild RASH ON Verified 12/24/18 14:55 SKIN/SKIN IRRITATION Medications Home Medications Medication Instructions Recorded Confirmed Last Taken atorvastatin 10 mg tablet 10 mg PO HS 11/11/18 12/24/18 12/03/18 22:00 cholecalciferol (vitamin D3) 1,000 1,000 units PO BID 11/11/18 12/24/18 12/03/18 17:00 unit capsule cyanocobalamin (vitamin B-12) 1,000 mcg PO QAM 11/11/18 12/24/18 12/03/18 06:00 1,000 mcg capsule fluticasone furoate 200 1 puffs INH DAILY 11/11/18 12/24/18 12/04/18 05:00 mcg-vilanterol 25 mcg/dose inhalation powder hydrochlorothiazide 25 mg tablet 25 mg PO QAM 11/11/18 12/24/18 12/03/18 06:00 ipratropium-albuterol 0.5 mg-3 3 ml INH QID PRN 11/11/18 12/24/18 3 Weeks Ago mg(2.5 mg base)/3 mL nebulization ~11/13/18 soln levothyroxine 75 mcg capsule 75 mcg PO QAM 11/11/18 12/24/18 12/04/18 05:00 montelukast 10 mg tablet 10 mg PO QAM 11/11/18 12/24/18 12/03/18 06:00 ondansetron 4 mg disintegrating 4 mg PO Q8H PRN 11/11/18 12/24/18 3 Months Ago tablet ~09/03/18 ranitidine 150 mg tablet 150 mg PO QPM 11/11/18 12/24/18 12/03/18 17:00 spironolactone 25 mg tablet 25 mg PO QAM 11/11/18 12/24/18 12/03/18 06:00 multivit with 1 tab PO 3XWK 11/12/18 12/24/18 3 Days Ago shfbdjsd-cake-UT-lutein 8 mg ~12/01/18 iron-400 mcg-300 mcg tablet metformin ER 500 mg 1,000 mg PO BID #360 tab 11/18/18 12/24/18 12/03/18 17:00 tablet,extended release 24 hr amoxicillin 500 mg PO UD PRN 11/22/18 12/24/18 3 Months Ago ~09/03/18 calcium carbonate [Calcium 500] 500 mg PO QAM 11/22/18 12/24/18 12/03/18 06:00 raloxifene [Evista] 60 mg PO QPM 11/22/18 12/24/18 12/02/18 18:00 blood sugar diagnostic strips #100 ea 12/06/18 12/24/18 Unknown tramadol [Ultram] 50 mg PO QID PRN #15 tab 12/11/18 12/24/18 Unknown Past Medical History Medical History Osteoarthritis Hypertension H/O gastric ulcer 3 years ago Diabetes type 2, controlled NIDDM COPD (chronic obstructive pulmonary disease) stable; "severe" emphysema per 10/[address] 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) Right upper lobe pulmonary nodule (Resolved) Hearing deficit Hyperlipidemia Hypothyroidism s/p radioactive iodine Skin cancer BCC (nasal, eyelid) Teeth grinding wears mouth guard HS Past Family History Family History Mother Diabetes Hypertension Grandmother Diabetes Father Heart disease Brother Heart disease Past Surgical History Surgical History History of carpal tunnel surgery (~04/2012) b/l + removal of b/l "thumb joints" History of bilateral tubal ligation (04/1982) H/O total hip arthroplasty LEFT + LEFT FEMUR/REVISION H/O pilonidal cyst removed 1966 H/O oral surgery GUM (2010), WISDOM/MOLAR TEETH EXTRACTIONS (2013) H/O dilation and curettage History of bronchoscopy History of colonoscopy History of tonsillectomy Status post lobectomy of lung (12/04/18) Robotic Right Video Assisted Thoracoscopy with Right Upper Lobe Wedge Resection, Right Upper Lobectomy with Mediastinal Lymphadenectomy Dr. Parsons 12/04/18 Social History Smoking Status: Former smoker tobacco type: cigarettes Smoking cigarettes per day: 20 Smoking End Date: 1993 Hx Alcohol Use: Yes alcohol intake frequency: holidays/special occasions only Hx Substance Use: No substance use type: does not use Testing Electrocardiogram Normal sinus rhythm Poor R wave progression, consider anterior AR vs. lead placement vs. LVH Abnormal ECG When compared with ECG of 07-SEP-2011 13:59, No significant change was found Confirmed by Kolton Hunt ([id number]) on 11/26/2018 4:44:31 PM Chest X-Ray Date: 12/24/18 MPRESSION: 1. Increased size of the now large right pneumothorax component of the right hydropneumothorax with the right pleural drain remaining in place. This can imply airleak or bronchopleural fistula. 2. Decreased aeration of the right lung. 3. Hyperinflation of the left lung could imply underlying emphysema or other obstructive lung disease. The report will be called/faxed according to standard departmental protocol.
[~2018-12-26 09:49] MED LIST changes: -AMX500 PO; -ATOR10TA82 PO; -CHOL1CAP57 PO; -CYAN100020 PO; +DEXAMETHASONE SOD INJ 4 MG/ML VIAL ONE; -EVS60 PO; +GLYCOPYRROLATE 0.2 MG/ML VIAL ONE; -HYDC25 PO; +HYDROmorphone INJ 2 MG/ML SYR/VIAL ONE; -LEVO75TA PO; +LIDOCAINE HCL 2% 2 ML VIAL/AMP(20MG/ML) INFIL ONE; +LR 15ML/HR IV SCH; -METFTAB PO; +MIDAZOLAM HCL 1 MG/ML 2ML VIAL ONE; +NEOSTIGMINE METHYLSULFATE 5 MG/5 ML SYR ONE; +ONDANSETRON INJ 2 MG/ML 2 ML VIAL ONE; +PROPOFOL IV EMULSION 10 MG/ML 20 ML VIAL IV ONE; -RANI150T85 PO; +ROCURONIUM BROMIDE 10 MG/ML 5 ML VIAL ONE; -SPIR25TA PO; -TRAM-10 PO; +fentaNYL citrate 100 MCG/2 ML VIAL ONE
[2018-12-26] MEDS ORDERED: BUPIVACAINE LIPOSOME 1.3% 266 MG/20 ML VIAL ONE (10:33)
[2018-12-26] MEDS ORDERED: BUPIVACAINE 0.5 % 5 MG/1 ML MPF 30ML VIAL ONE (10:33)
[2018-12-26] MEDS ORDERED: SODIUM CHLORIDE 0.9% INJ 10 ML VIAL ONE (10:33)
[2018-12-26] MEDS ORDERED: SODIUM CHLORIDE 0.9% PF 50 ML VIAL ONE (10:41)
--- NOTE | 2018-12-26 10:46 | History & Physical Bridge Note ---
Date of Service December 26, 2018 History & Physical Bridge Note I have examined the patient, reviewed the History & Physical and in the interval since the performance of the History & Physical I have noted the following changes of clinical significance: no changes noted
[2018-12-26] MEDS ORDERED: HYDROmorphone INJ 2 MG/ML SYR/VIAL ONE (11:33)
[2018-12-26] MEDS ORDERED: fentaNYL citrate 100 MCG/2 ML VIAL ONE (11:33)
[2018-12-26] MEDS ORDERED: KETOROLAC 30 MG/ML VIAL ONE (11:47)
[2018-12-26] MEDS ORDERED: ePHEDrine sulfate 50 MG/ML SYR ONE (11:47)
[2018-12-26] MEDS ORDERED: CEFAZOLIN 1000MG 1,000 MG/7.5 ML SYR IV ONE (12:02)
--- NOTE | 2018-12-26 12:21 | Post Operative Brief Note ---
PG Immediate Post Op with CF Date of Surgery December 26, 2018 Pre & Post Diagnosis Operation Date: 12/26/18 11:30 Pre-Op Diagnosis: Pneumothorax, Air Leak Right Lung, Post Right Upper lobe Post-Op Diagnosis: Pneumothorax, Air Leak Right Lung, Post Right Upper lobe Procedure Operation Date: 12/26/18 11:30 Actual Procedures p Right Video Assisted Thoracoscopy with Repair of Air Leak(Right) - Hugo Parsons MD, FACS Surgeon Hugo Parsons MD, FACS Test Center Administrator Omari Gutierrez CCIII Estimated Blood Loss 5 Findings Consistent with Post-Op Diagnosis Specimens Specimen Description: FRESH SPECIMEN: 1. Wedge of superior right lower lobe Drains Chest Tube
[2018-12-26] MEDS ORDERED: METOCLOPRAMIDE HCL INJ 5 MG/ML 2 ML VIAL IV ONE (12:31)
--- NOTE | 2018-12-26 12:53 | XRay Report ---
XR chest 1V portable CLINICAL HISTORY: 73 years-old Female presenting with pneumothorax. TECHNIQUE: Portable upright AP view of the chest was obtained. COMPARISON: 12/24/2018. FINDINGS: Large bore right pleural drain is now positioned at the right apex. Slight rightward deviation of the cardiomediastinal silhouette. Postsurgical changes of the right apex and right hilar region suggeste d. Increased density of the right hemithorax may suggest increasing pleural effusion. Decreased pneum othorax component, which is small to moderate. Left lung and pleural space grossly clear. Soft tissue emphysema along the right lateral chest wall. IMPRESSION: 1. Interval decreased size of the right pneumothorax component of the hydropneumothorax. 2. Pleural drain now positioned at the right apex. 3. Postsurgical changes of the right lung. Electronically signed by: Mike Horvath M.D. 12/26/2018 12:52 PM
--- NOTE | 2018-12-26 13:00 | Operative Report ---
DATE OF OPERATION: 12/26/2018 PREOPERATIVE DIAGNOSES: 1. Right bronchopleural fistula following a lobectomy. 2. Stage IIIa nonsmall cell lung carcinoma. HOSPITAL COURSE: The patient was referral from Dr. Kolton Danielle with an hypermetabolic mass in her right upper lobe. We did a staging workup and did not appear that she had metastatic disease. On 12/04/2018, I took the patient to the operating room, did a wedge resection. This mass turned out to be an adenocarcinoma. I then did a robot-assisted thoracoscopic right upper lobectomy with mediastinal lymphadenectomy. The patient did well with a tiny air leak at the conclusion of the case. However, following morning, this had enlarged. Her lung remained expanded, so I went ahead and as her drainage was negligible from a fluid standpoint, put a Heimlich valve on her. Unfortunately, this did not improve and in fact it worsened on her last visit earlier this week. She also had an enlarging pneumothorax. For this reason, we brought her in for surgery. On 12/26/2018, I brought the patient to the operating room and I found an area superior segment of the lower lobe which was not in the area of our nicci or dissection. She had markedly emphysematous lungs. I did a wedge resection and she tolerated it well. DESCRIPTION OF PROCEDURE: The patient brought to the operating room and laid in supine position. General anesthesia induced and endotracheal intubation performed with single lumen tube. We kept at low volumes with a rapid rate. She was then turned in left lateral decubitus position, and her right chest tube was removed. She was prepped and draped in usual sterile fashion. After appropriate antibiotics had been given and appropriate timeout had been called, I placed a 5 mm port posteriorly. This is posterior to the scapula up in interspace or 2 from the tip. Upon entering, I could see there were essentially no adhesions. She did have some fluid which was suctioned out. I then put a 5 mm port anterior to the scapula and then where the tube had been was the best place for our 12 mm ports. We simply inserted it through this. We then irrigated out the chest with sterile warm saline and inflated the lung, and it could be seen that she had an isolated leak in the superior segment of her right lower lobe. This was edged out easily with an Endo-PAUL stapler firing twice. Segment was removed and delivered off the field. I did not see an air leak after this and we did not have an air leak in the operating room. A 266 mg of Exparel mixed with 30 mL of 0.5% bupivacaine and 250 mL of normal saline injected each of the port sites before making an incision. I then did an intercostal block from the 2nd to the 12th rib using the bupivacaine solution. This was done intrathoracically above the ribs to fill the rib spaces. I then inserted a chest tube. This 24-Bengali chest tube was directed towards the apex from the original chest tube site. This was sutured in place with heavy silk suture. A 4-0 Monocryl was used in running subcuticular fashion to close the 2 incisions. She tolerated it well, was extubated in the room. I attest to the content of the Intraoperative Record and any orders documented therein. Any exception s are noted below.
--- NOTE | 2018-12-26 13:18 | Anesthesiology Progress Note ---
Date of Service December 26, 2018 Anesthesia Post Procedure Vital Signs Vital Signs: Temp Pulse Pulse Resp BP Pulse Ox 12/26/18 13:05 36.3 C L 71 22 141/67 H 100 12/26/18 12:55 69 20 157/65 H 12/26/18 12:45 73 23 144/95 H 12/26/18 12:35 85 19 166/88 H 99 12/26/18 12:29 36 C L 83 15 178/74 H 12/26/18 10:35 36.8 C 76 18 148/76 H 99 Transfer of Care Handoff Completed per policy Notes Mental Status: alert / awake / arousable and participated in evaluation Patient Amnestic to Procedure: Yes Nausea / Vomiting: adequately controlled Pain: adequately controlled Airway Patency, RR, SpO2: stable & adequate BP & HR: stable & adequate Hydration State: stable & adequate Anesthetic Complications: no major complications apparent
[2018-12-26] MEDS ORDERED: LARYING-O-JET KIT (LTA) ONE (13:41)
[2018-12-26] MEDS ORDERED: ALBUT/IPRATROP 3MG/0.5MG NEB 3 ML VIAL INH PRN (14:13)
[2018-12-26] MEDS ORDERED: ONDANSETRON INJ 2 MG/ML 2 ML VIAL IV PRN (14:13)
[2018-12-26] MEDS ORDERED: OXYCODONE HCL IR 5 MG TAB (IMMEDIATE RELEASE) PO PRN (14:13)
[2018-12-26] MEDS ORDERED: MoRPHine SULFATE 2 MG/ML CARP IV PRN (14:13)
[2018-12-26] MEDS ORDERED: GLUCAGON FOR INJ 1 MG VIAL IM PRN (14:45)
[2018-12-26] MEDS ORDERED: DEXTROSE 50% 50 ML SYRINGE IV PRN (14:45)
[2018-12-26] MEDS ORDERED: GLUCOSE 40% GEL 15 GM TUBE PO PRN (14:45)
[2018-12-26] MEDS ORDERED: GLUCOSE 10 TABS/TUBE PO PRN (14:45)
[2018-12-26] MEDS ORDERED: CARBOHYDRATES FOR HYPOGLYCEMIA PO PRN (14:45)
[2018-12-26] MEDS: ACETAMINOPHEN 1,000 MG/100 ML VIAL IV SCH ×2 (16:00→23:36)
[2018-12-26] MEDS: SODIUM CHLORIDE 0.9% 1000ML 1,000 ML IV SCH (16:41)
[2018-12-26] MEDS: METOCLOPRAMIDE HCL INJ 5 MG/ML 2 ML VIAL IV SCH ×2 (17:00→21:30)
[2018-12-26] MEDS: INSULIN ASPART 100 UNITS/ML 3 ML PEN SC SCH ×2 (18:34→21:37)
[2018-12-26] MEDS: RALOXIFENE HCL 60 MG TAB PO SCH (21:30)
[2018-12-26] MEDS: ATORVASTATIN 10 MG TAB PO SCH (21:30)
[2018-12-26] MEDS: CHOLECALCIFEROL 1,000 UNITS TAB PO SCH (21:30)
[2018-12-27] MEDS: LEVOTHYROXINE SODIUM 75 MCG TABLET PO SCH (05:34)
[2018-12-27] MEDS: SODIUM CHLORIDE 0.9% 1000ML 1,000 ML IV SCH (05:34)
[2018-12-27] MEDS: METOCLOPRAMIDE HCL INJ 5 MG/ML 2 ML VIAL IV SCH (05:34)
--- NOTE | 2018-12-27 07:16 | XRay Report ---
XR chest 1V portable CLINICAL HISTORY: pneumothorax COMPARISON STUDY: 12/26/2018 FINDINGS: The cardiac and mediastinal contours remain stable. There is underlying emphysema. Postsurg ical changes are present on the right. The right-sided chest tube remains in similar position. There is a right apical pneumothorax with pleural separation of 51 mm. There is blunting of the right later al costophrenic angle. Interstitial right basilar opacities persist.[ IMPRESSION: Persistent right-sided hydropneumothorax. The pleural separation remains approximately 5 cm. Electronically signed by: Yandel Reddy M.D. 12/27/2018 7:15 AM
[2018-12-27] MEDS: CALCIUM CARBONATE 1250MG TAB PO SCH (07:55)
[2018-12-27] MEDS: CHOLECALCIFEROL 1,000 UNITS TAB PO SCH ×2 (07:55→21:05)
[2018-12-27] MEDS: FLUTICASONE INH SCH (07:56)
[2018-12-27] MEDS: CYANOCOBALAMIN 500 MCG TABLET (VITAMIN B-12) PO SCH (07:56)
[2018-12-27] MEDS: MONTELUKAST SODIUM 10 MG TABLET PO SCH (07:56)
[2018-12-27] MEDS: VILANTEROL INH SCH (07:56)
[2018-12-27] MEDS: ACETAMINOPHEN 1,000 MG/100 ML VIAL IV SCH (07:56)
[2018-12-27] MEDS: CEROVITE ADV FORMULA TAB PO SCH (07:57)
[2018-12-27] MEDS: ENOXAPARIN INJ 40 MG/0.4 ML SYR SQ SCH (07:57)
[2018-12-27] MEDS: ACETAMINOPHEN 325 MG TAB PO SCH ×3 (08:44→21:05)
[2018-12-27] MEDS ORDERED: NON-FORMULARY MEDICATION (Fluticasone Furoate-Vilanterol [Breo Ellipta] 1 PUFFS) INH SCH (09:00)
[2018-12-27] MEDS: INSULIN ASPART 100 UNITS/ML 3 ML PEN SC SCH ×4 (09:14→21:12)
--- NOTE | 2018-12-27 17:48 | Progress Note ---
DATE: 12/27/2018 Ms. Gallardo was seen today 1 day after we took her to the operating room and repaired her air leak. Bit surprised as we found an area of her superior segment of her right lower lobe which was leaking and wedged it out and we did not see any other leak at all. She does not have a leak in the OR. A small leak in the PACU, which was a bit surprising to me, then when she got to the floor, it was larger. Her lung was not fully expanded either. This did concern me. I was much happier to see that her air leak was definitely smaller and her lung was a bit more expanded today. We are going to continue our intermittent suction and otherwise I think she looks quite good. I had a long talk with the patient and her . LOREN
[2018-12-27] MEDS: ATORVASTATIN 10 MG TAB PO SCH (21:05)
[2018-12-27] MEDS: RALOXIFENE HCL 60 MG TAB PO SCH (21:05)
[2018-12-28] MEDS: ACETAMINOPHEN 325 MG TAB PO SCH ×4 (03:40→20:19)
[2018-12-28] MEDS: LEVOTHYROXINE SODIUM 75 MCG TABLET PO SCH (05:59)
[2018-12-28 07:41] LABS: Creatinine Clr Calc Pharmacy 55.7 ml/min; Est GFR (African American) 90.2; Est GFR (Non-African American) 77.8
--- NOTE | 2018-12-28 07:42 | XRay Report ---
XR chest 1V portable CLINICAL HISTORY: pneumothorax COMPARISON STUDY: Chest radiograph December 27, 2018. FINDINGS: Right chest tube is in place. There are postoperative findings within the right lung. A rig ht hydropneumothorax is noted. Superior pleural separation measures 5.2 cm. This is similar to prior exam. Mild right basilar opacity is present. There is emphysema. IMPRESSION: No change in a moderate right pneumothorax. Right chest tube in place. Electronically signed by: Heber Jacobs M.D. 12/28/2018 7:40 AM
--- NOTE | 2018-12-28 08:37 | Progress Note ---
DATE: 12/28/2018 Ms. Gallardo was seen today on 12/28/2018. She had a rough night. She did not respond well to oxycodone, became very confused. This morning she looks better. Her air leak is persistent but small. Her lung is also not completely expanded. I turned her suction up to 20 cm and we will keep it there. I am going to order some Toradol as she is having diffuse pain which is not uncommon for her. Otherwise, her vital signs are stable. She is on room air and she is ambulating in the hallway. She is moving her bowels. She is eating well. We will continue our current level of care.
[2018-12-28] MEDS: FLUTICASONE INH SCH (09:10)
[2018-12-28] MEDS: VILANTEROL INH SCH (09:10)
[2018-12-28] MEDS: INSULIN ASPART 100 UNITS/ML 3 ML PEN SC SCH ×4 (09:13→21:41)
[2018-12-28] MEDS: ENOXAPARIN INJ 40 MG/0.4 ML SYR SQ SCH (09:15)
[2018-12-28] MEDS: CHOLECALCIFEROL 1,000 UNITS TAB PO SCH ×2 (09:17→20:18)
[2018-12-28] MEDS: CYANOCOBALAMIN 500 MCG TABLET (VITAMIN B-12) PO SCH (09:17)
[2018-12-28] MEDS: MONTELUKAST SODIUM 10 MG TABLET PO SCH (09:19)
[2018-12-28] MEDS: CALCIUM CARBONATE 1250MG TAB PO SCH (09:19)
[2018-12-28] MEDS: KETOROLAC TROMETHAMINE 15 MG/ML VIAL IV PRN ×2 (09:50→23:20)
[2018-12-28] MEDS: ATORVASTATIN 10 MG TAB PO SCH (20:19)
[2018-12-28] MEDS: RALOXIFENE HCL 60 MG TAB PO SCH (20:19)
[2018-12-29] MEDS: ACETAMINOPHEN 325 MG TAB PO SCH ×4 (03:39→20:58)
[2018-12-29] MEDS: LEVOTHYROXINE SODIUM 75 MCG TABLET PO SCH (05:46)
[2018-12-29 07:02] LABS: Creatinine Clr Calc Pharmacy 57.2 ml/min; Est GFR (African American) 93.2; Est GFR (Non-African American) 80.4
[2018-12-29] MEDS: INSULIN ASPART 100 UNITS/ML 3 ML PEN SC SCH ×4 (09:04→21:00)
[2018-12-29] MEDS: CHOLECALCIFEROL 1,000 UNITS TAB PO SCH ×2 (09:05→20:58)
[2018-12-29] MEDS: MONTELUKAST SODIUM 10 MG TABLET PO SCH (09:05)
[2018-12-29] MEDS: CYANOCOBALAMIN 500 MCG TABLET (VITAMIN B-12) PO SCH (09:05)
[2018-12-29] MEDS: ENOXAPARIN INJ 40 MG/0.4 ML SYR SQ SCH (09:06)
[2018-12-29] MEDS: CALCIUM CARBONATE 1250MG TAB PO SCH (09:06)
[2018-12-29] MEDS: FLUTICASONE INH SCH (09:06)
[2018-12-29] MEDS: VILANTEROL INH SCH (09:06)
--- NOTE | 2018-12-29 09:35 | XRay Report ---
XR chest 1V portable CLINICAL HISTORY: 73 years-old Female presenting with pneumothorax. TECHNIQUE: Portable upright AP view of the chest was obtained. COMPARISON: 12/28/2018. FINDINGS: Large bore right pleural drain remains position at the right apex. Atherosclerosis of the aortic arch . Cardiac silhouette mildly enlarged, unchanged. Hyperinflation of the left lung as on prior exam wit h heterogeneous radiolucency of the underlying parenchyma. Suture margin noted at the right apex. Sta ble size of the small to moderate right apical pneumothorax. Persistent right basilar opacity and rig ht pleural effusion. Osteopenia suspected. Upper abdomen normal. IMPRESSION: 1. No significant change from prior with stable small to moderate right apical pneumothorax in the r ight pleural drain in place. 2. Postsurgical changes of the right apex. 3. Stable right basilar infiltrate and right pleural effusion or pleural thickening. 4. Underlying emphysema. Electronically signed by: Mike Horvath M.D. 12/29/2018 9:33 AM
--- NOTE | 2018-12-29 10:58 | Progress Note ---
DATE: 12/29/2018 Ms. Gallardo was seen today. She still has an air leak, which I find quite perplexing. She had no air leak at all when we were in the operating room. She has drained a little over 100 mL from her chest tube and it is serous. Her x-ray was reviewed this morning and shows a small right apical pneumothorax. I had a long talk with the patient and her today. We may see about perhaps inserting a [place]berry valve if possible. We will work on that, although we do not carry them here.
[2018-12-29] MEDS: KETOROLAC TROMETHAMINE 15 MG/ML VIAL IV PRN (17:06)
[2018-12-29] MEDS: RALOXIFENE HCL 60 MG TAB PO SCH (20:58)
[2018-12-29] MEDS: ATORVASTATIN 10 MG TAB PO SCH (20:58)
[2018-12-30] MEDS: ACETAMINOPHEN 325 MG TAB PO SCH ×4 (03:46→21:02)
[2018-12-30] MEDS: LEVOTHYROXINE SODIUM 75 MCG TABLET PO SCH (05:51)
[2018-12-30] MEDS: ENOXAPARIN INJ 40 MG/0.4 ML SYR SQ SCH (09:08)
[2018-12-30] MEDS: KETOROLAC TROMETHAMINE 15 MG/ML VIAL IV PRN ×2 (09:08→18:45)
[2018-12-30] MEDS: MONTELUKAST SODIUM 10 MG TABLET PO SCH (09:09)
[2018-12-30] MEDS: CALCIUM CARBONATE 1250MG TAB PO SCH (09:09)
[2018-12-30] MEDS: CHOLECALCIFEROL 1,000 UNITS TAB PO SCH ×2 (09:09→21:02)
[2018-12-30] MEDS: FLUTICASONE INH SCH (09:09)
[2018-12-30] MEDS: CEROVITE ADV FORMULA TAB PO SCH (09:09)
[2018-12-30] MEDS: VILANTEROL INH SCH (09:09)
[2018-12-30] MEDS: CYANOCOBALAMIN 500 MCG TABLET (VITAMIN B-12) PO SCH (09:09)
[2018-12-30] MEDS: INSULIN ASPART 100 UNITS/ML 3 ML PEN SC SCH ×4 (09:11→21:36)
--- NOTE | 2018-12-30 15:17 | Progress Note ---
DATE: 12/30/2018 Ms. Gallardo was seen today. She had some difficulty sleeping last night. Otherwise, she looks great. Saturations 96% on room air now. Heart rate in the 70s. She had been eating breakfast. Unfortunately, her air leak appeared to be even larger. I am quite disappointed at that. We are going to repeat an x-ray in the morning. I am awaiting the return call from [facility]. I doubt we would be able to get this anytime soon, but I would like to try. Her air leak has gotten so large, I may just consider taking her back again, but we will see how she looks. LOREN
[2018-12-30] MEDS: ATORVASTATIN 10 MG TAB PO SCH (21:02)
[2018-12-30] MEDS: RALOXIFENE HCL 60 MG TAB PO SCH (21:03)
[2018-12-31] MEDS: ACETAMINOPHEN 325 MG TAB PO SCH ×5 (03:43→20:59)
[2018-12-31] MEDS: LEVOTHYROXINE SODIUM 75 MCG TABLET PO SCH (06:07)
[2018-12-31] MEDS: VILANTEROL INH SCH (06:27)
[2018-12-31] MEDS: FLUTICASONE INH SCH (06:27)
--- NOTE | 2018-12-31 07:28 | XRay Report ---
XR chest 1V portable CLINICAL HISTORY: pneumothorax COMPARISON STUDY: Chest radiograph December 29, 2013. FINDINGS: Right chest tube is in place. Postoperative findings within the right lung apex are noted. A moderate to large right pneumothorax has significantly increased in size since prior exam of Septem 2018. Superior pleural separation now measures 7.4 cm. Small right pleural effusion is noted. There are severe emphysema. Cardiomediastinal silhouette is stable. IMPRESSION: Significant increase in size of a moderate to large right pneumothorax. Right chest tube in place. Electronically signed by: Heber Jacobs M.D. 12/31/2018 7:27 AM
[2018-12-31] MEDS: CYANOCOBALAMIN 500 MCG TABLET (VITAMIN B-12) PO SCH (08:12)
[2018-12-31] MEDS: ENOXAPARIN INJ 40 MG/0.4 ML SYR SQ SCH (08:12)
[2018-12-31] MEDS: CALCIUM CARBONATE 1250MG TAB PO SCH (08:12)
[2018-12-31] MEDS: CHOLECALCIFEROL 1,000 UNITS TAB PO SCH ×2 (08:12→21:00)
[2018-12-31] MEDS: MONTELUKAST SODIUM 10 MG TABLET PO SCH (08:12)
[2018-12-31] MEDS: INSULIN ASPART 100 UNITS/ML 3 ML PEN SC SCH ×4 (08:44→21:26)
--- NOTE | 2018-12-31 13:12 | Anesthesiology Consultation ---
Date of Service December 31, 2018 Assessment & Plan (1) Encounter for pre-operative examination: Chart Review Chart Review: Acceptable Risk for Surgery and Patient NOT seen in Pre Admission Testing Consults Requested none History Surgery Operation Date: 12/26/18 11:30 Proposed Procedures p Right Video Assisted Thoracoscopy with Repair of Air Leak - Hugo Parsons MD, FACS Operation Date: 01/01/19 11:30 Proposed Procedures p Right Video Assisted Thoracoscopy - Hugo Parsons MD, FACS Height/Weight Height: 5 ft 3.5 in Weight: 54.023 kg Allergies Allergy/AdvReac Type Severity Reaction Status Date / Time Sulfa (Sulfonamide Allergy Severe "ALMOST Verified 12/26/18 10:27 Antibiotics) " levofloxacin [From Levaquin] AdvReac Intermediate UPSET Verified 12/26/18 10:27 STOMACH adhesive AdvReac Mild RASH ON Verified 12/26/18 10:27 SKIN/SKIN IRRITATION Medications Home Medications Medication Instructions Recorded Confirmed Last Taken atorvastatin 10 mg tablet 10 mg PO HS 11/11/18 12/26/18 12/24/18 22:00 cholecalciferol (vitamin D3) 1,000 1,000 units PO BID 11/11/18 12/26/18 12/25/18 16:30 unit capsule cyanocobalamin (vitamin B-12) 1,000 mcg PO QAM 11/11/18 12/26/18 12/25/18 06:30 1,000 mcg capsule fluticasone furoate 200 1 puffs INH DAILY 11/11/18 12/26/18 12/26/18 06:00 mcg-vilanterol 25 mcg/dose inhalation powder hydrochlorothiazide 25 mg tablet 25 mg PO QAM 11/11/18 12/26/18 12/25/18 06:30 ipratropium-albuterol 0.5 mg-3 3 ml INH QID PRN 11/11/18 12/26/18 12/25/18 20:00 mg(2.5 mg base)/3 mL nebulization soln levothyroxine 75 mcg capsule 75 mcg PO QAM 11/11/18 12/26/18 12/26/18 06:30 montelukast 10 mg tablet 10 mg PO QAM 11/11/18 12/26/18 12/26/18 06:30 ondansetron 4 mg disintegrating 4 mg PO Q8H PRN 11/11/18 12/26/18 3 Months Ago tablet ~09/03/18 ranitidine 150 mg tablet 150 mg PO QPM 11/11/18 12/26/18 12/25/18 16:30 spironolactone 25 mg tablet 25 mg PO QAM 11/11/18 12/26/18 12/25/18 06:30 multivit with 1 tab PO 3XWK 11/12/18 12/26/18 3 Days Ago avhxsmot-dhnu-DD-lutein 8 mg ~12/23/18 iron-400 mcg-300 mcg tablet metformin ER 500 mg 1,000 mg PO BID #360 tab 11/18/18 12/26/18 12/25/18 16:30 tablet,extended release 24 hr amoxicillin 500 mg PO UD PRN 11/22/18 12/26/18 3 Months Ago ~09/03/18 calcium carbonate [Calcium 500] 500 mg PO QAM 11/22/18 12/26/18 2 Days Ago ~12/24/18 raloxifene [Evista] 60 mg PO QPM 11/22/18 12/26/18 12/25/18 06:30 blood sugar diagnostic strips #100 ea 12/06/18 12/24/18 Unknown tramadol [Ultram] 50 mg PO QID PRN #15 tab 12/11/18 12/26/18 12/25/18 16:30 Active Medications Generic Name Dose Route Start Last Admin Trade Name Forestq PRN Reason Stop Dose Admin Acetaminophen 650 mg 12/27/18 09:00 12/31/18 08:12 Tylenol PO 01/26/19 08:59 650 mg Q6H VIKY Administration Atorvastatin Calcium 10 mg 12/26/18 21:00 12/30/18 21:02 Lipitor PO 01/25/19 20:59 10 mg HS VIKY Administration Calcium Carbonate 1,250 mg 12/27/18 09:00 12/31/18 08:12 Os-Cheko 500 PO 01/26/19 08:59 1,250 mg QAM VIKY Administration Cyanocobalamin 1,000 mcg 12/27/18 09:00 12/31/18 08:12 Vitamin B-12 PO 01/26/19 08:59 1,000 mcg QAM VIKY Administration Enoxaparin Sodium 40 mg 12/27/18 09:00 12/31/18 08:12 Lovenox SQ 01/26/19 08:59 40 mg QAM VIKY Administration Fluticasone/Vilanterol 1 puffs 12/27/18 09:00 12/31/18 06:27 Breo Ellipta INH 01/26/19 08:59 1 puffs DAILY VIKY Administration Insulin Aspart 0 units 12/26/18 16:30 12/31/18 13:03 Novolog Flexpen SC 01/25/19 16:29 Not Given ACHS VIKY Ketorolac Tromethamine 15 mg 12/28/18 08:26 12/30/18 18:45 Toradol IV 01/02/19 08:25 15 mg Q8 PRN Administration Pain Levothyroxine Sodium 75 mcg 12/27/18 06:30 12/31/18 06:07 Synthroid PO 01/26/19 06:29 75 mcg DAILYBB VIKY Administration Montelukast Sodium 10 mg 12/27/18 09:00 12/31/18 08:12 Singulair PO 01/26/19 08:59 10 mg QAM VIKY Administration Multivitamins/Minerals 1 tab 12/27/18 09:00 12/30/18 09:09 Multivitamin W/ Minerals Tab PO 01/26/19 08:59 1 tab [id number]@0900 VIKY Administration Raloxifene HCl 60 mg 12/26/18 21:00 12/30/18 21:03 Evista PO 01/25/19 20:59 60 mg QPM VIKY Administration Ranitidine HCl 150 mg 12/26/18 21:00 12/30/18 21:03 Zantac PO 01/25/19 20:59 150 mg QPM VIKY Administration Vitamin D 1,000 units 12/26/18 21:00 12/31/18 08:12 Vitamin D3 PO 01/25/19 20:59 1,000 units BID VIKY Administration Past Medical History Medical History Osteoarthritis Hypertension H/O gastric ulcer 3 years ago Diabetes type 2, controlled NIDDM COPD (chronic obstructive pulmonary disease) stable; "severe" emphysema per 10/[address] Right upper lobe pulmonary nodule (Resolved) Hearing deficit Hyperlipidemia Hypothyroidism s/p radioactive iodine 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) Skin cancer BCC (nasal, eyelid) Teeth grinding wears mouth guard HS Exercise / Class Metabolic Activity II 4-5 Yardwork/Stairs/Walk up hill Past Family History Family History Mother Diabetes Hypertension Grandmother Diabetes Father Heart disease Brother Heart disease Past Surgical History Surgical History History of carpal tunnel surgery (~04/2012) b/l + removal of b/l "thumb joints" History of bilateral tubal ligation (04/1982) H/O total hip arthroplasty LEFT + LEFT FEMUR/REVISION H/O pilonidal cyst removed 1965 H/O oral surgery GUM (2010), WISDOM/MOLAR TEETH EXTRACTIONS (2012) H/O dilation and curettage History of bronchoscopy History of colonoscopy History of tonsillectomy Status post lobectomy of lung (12/04/18) Robotic Right Video Assisted Thoracoscopy with Right Upper Lobe Wedge Resection, Right Upper Lobectomy with Mediastinal Lymphadenectomy Dr. Parsons 12/04/18 Patient brought back to OR 12/26/2018 for air leak repair. Anesthesia record not available. Past Anesthesia History No Hx of Anesthesia Complications and No Family Hx of Anesthesia Complications History of PONV No Hx of PONV and No Hx of Motion Sickness Social History Smoking Status: Former smoker tobacco type: cigarettes Smoking cigarettes per day: 20 Smoking End Date: 1993 Hx Alcohol Use: Yes alcohol intake frequency: holidays/special occasions only Hx Substance Use: No substance use type: does not use Physical Exam Vital Signs Last Vital Signs Temp 36.8 C 12/31/18 11:22 Pulse 68 12/31/18 11:22 Resp 17 12/31/18 11:22 BP 130/80 12/31/18 11:22 Pulse Ox 93 12/31/18 11:22 Testing Laboratory Results 12/29/18 06:30 Blood Type A Positive 12/26/18 10:32 Antibody Screen NEGATIVE 12/26/18 10:32 12/31/18 12/31/18 12:08 08:01 POC Glucose 94 104 H Laboratory Tests 12/05/18 12/05/18 12/05/18 06:07 06:07 06:07 WBC 15.17 H Hgb 12.1 Hct 35.4 L Plt Count 231 PT 10.9 INR 1.1 APTT 24.2 Sodium 139 Potassium 4.1 Chloride 104 Carbon Dioxide 27 BUN 14 Creatinine 0.80 Electrocardiogram Date: 11/26/18 Findings: + NSR @ (68) Normal sinus rhythm Poor R wave progression, consider anterior NM vs. lead placement vs. LVH Abnormal ECG When compared with ECG of 07-SEP-2011 13:59, No significant change was found Confirmed by Kolton Hunt ([id number]) on 11/26/2018 4:44:31 PM Chest X-Ray Date: 12/24/18 MPRESSION: 1. Increased size of the now large right pneumothorax component of the right hydropneumothorax with the right pleural drain remaining in place. This can imply airleak or bronchopleural fistula. 2. Decreased aeration of the right lung. 3. Hyperinflation of the left lung could imply underlying emphysema or other obstructive lung disease. The report will be called/faxed according to standard departmental protocol. Other Testing CXR 12/31/2018: XR chest 1V portable CLINICAL HISTORY: pneumothorax COMPARISON STUDY: Chest radiograph December 29, 2013. FINDINGS: Right chest tube is in place. Postoperative findings within the right lung apex are noted. A moderate to large right pneumothorax has significantly increased in size since prior exam of December 29, 2018. Superior pleural separation now measures 7.4 cm. Small right pleural effusion is noted. There are severe emphysema. Cardiomediastinal silhouette is stable. IMPRESSION: Significant increase in size of a moderate to large right pneumothorax. Right chest tube in place.
--- NOTE | 2018-12-31 14:08 | Progress Note ---
DATE: 12/31/2018 Susie was seen today on 12/31/2018. Her air leak is simply huge. I do not have a good explanation for this. I considered obtaining a valve to place and there were some other products we can use bronchoscopically however, I think that this leak is too large. I suspect there may be a rupture of a staple line. We did not see evidence of this at all during her second surgery. I am going to take her back to the operating room for a thoracoscopy tomorrow. We may place a pleural tent. I had a long discussion with the patient and her , they understand. We will take her tomorrow. LOREN
[2018-12-31] MEDS: KETOROLAC TROMETHAMINE 15 MG/ML VIAL IV PRN (18:18)
[2018-12-31] MEDS: ATORVASTATIN 10 MG TAB PO SCH (20:59)
[2018-12-31] MEDS: RALOXIFENE HCL 60 MG TAB PO SCH (21:00)
[2019-01-01] MEDS: ACETAMINOPHEN 325 MG TAB PO SCH ×4 (03:57→18:20)
[2019-01-01] MEDS: FLUTICASONE INH SCH (06:10)
[2019-01-01] MEDS: VILANTEROL INH SCH (06:10)
[2019-01-01] MEDS: LEVOTHYROXINE SODIUM 75 MCG TABLET PO SCH (06:10)
[2019-01-01 07:58] LABS: Creatinine Clr Calc Pharmacy 50.4 ml/min; Est GFR (African American) 79.9
--- NOTE | 2019-01-01 08:10 | History & Physical Bridge Note ---
Date of Service January 01, 2019 History & Physical Bridge Note I have examined the patient, reviewed the History & Physical and in the interval since the performance of the History & Physical I have noted the following changes of clinical significance: no changes noted
[2019-01-01] MEDS: INSULIN ASPART 100 UNITS/ML 3 ML PEN SC SCH ×4 (08:21→20:57)
[2019-01-01] MEDS: ENOXAPARIN INJ 40 MG/0.4 ML SYR SQ SCH (08:37)
[2019-01-01] MEDS: CALCIUM CARBONATE 1250MG TAB PO SCH (09:04)
[2019-01-01] MEDS: CEROVITE ADV FORMULA TAB PO SCH (09:04)
[2019-01-01] MEDS: CYANOCOBALAMIN 500 MCG TABLET (VITAMIN B-12) PO SCH (09:04)
[2019-01-01] MEDS: CHOLECALCIFEROL 1,000 UNITS TAB PO SCH ×2 (09:05→20:52)
[2019-01-01] MEDS: MONTELUKAST SODIUM 10 MG TABLET PO SCH (09:05)
[2019-01-01] MEDS ORDERED: CALCIUM CHLORIDE 10% 10 ML SYR IV ONE (13:15)
[2019-01-01] MEDS ORDERED: BUPIVACAINE 0.5 % 5 MG/1 ML MPF 30ML VIAL ONE (13:15)
[2019-01-01] MEDS ORDERED: BUPIVACAINE LIPOSOME 1.3% 266 MG/20 ML VIAL ONE (13:16)
[2019-01-01] MEDS ORDERED: SODIUM CHLORIDE 0.9% PF 50 ML VIAL ONE (13:16)
[2019-01-01] MEDS ORDERED: THROMBIN 5000 UNITS KIT ONE (13:16)
[2019-01-01] MEDS ORDERED: ROCURONIUM BROMIDE 10 MG/ML 5 ML VIAL ONE (13:20)
[2019-01-01] MEDS ORDERED: PROPOFOL IV EMULSION 10 MG/ML 20 ML VIAL IV ONE (13:20)
[2019-01-01] MEDS ORDERED: ONDANSETRON INJ 2 MG/ML 2 ML VIAL ONE (13:20)
[2019-01-01] MEDS ORDERED: LIDOCAINE HCL 2% 2 ML VIAL/AMP(20MG/ML) INFIL ONE (13:20)
[2019-01-01] MEDS ORDERED: fentaNYL citrate 100 MCG/2 ML VIAL ONE (13:21)
[2019-01-01] MEDS ORDERED: ONDANSETRON INJ 2 MG/ML 2 ML VIAL IV PRN (13:22)
[2019-01-01] MEDS ORDERED: ATROPINE SULFATE 0.1 MG/ML 10ML SYR IV PRN (13:22)
[2019-01-01] MEDS ORDERED: HYDROmorphone INJ 1 MG/ML SYRINGE IV PRN (13:22)
[2019-01-01] MEDS ORDERED: KETOROLAC 30 MG/ML VIAL IV PRN (13:22)
--- NOTE | 2019-01-01 13:31 | History & Physical Bridge Note ---
Date of Service January 01, 2019 History & Physical Bridge Note I have examined the patient, reviewed the History & Physical and in the interval since the performance of the History & Physical I have noted the following changes of clinical significance: no changes noted:The patient has a persistent air leak. We will her back to the OR to repair the leak as stated in the consent.
[2019-01-01] MEDS ORDERED: CLINDAMYCIN PHOS 300 MG/2 ML VIAL ONE (13:51)
[2019-01-01] MEDS ORDERED: THROMBIN FOR SOLN 20000 UNIT KIT ONE (14:02)
[2019-01-01] MEDS ORDERED: DEXAMETHASONE SOD INJ 4 MG/ML VIAL ONE (14:15)
[2019-01-01] MEDS ORDERED: PROGEL PLEURAL AIR LEAK SEALAN 4ML TOP ONE (14:41)
--- NOTE | 2019-01-01 15:40 | Post Operative Brief Note ---
PG Immediate Post Op with CF Date of Surgery January 01, 2019 Pre & Post Diagnosis Operation Date: 01/01/19 11:30 Pre-Op Diagnosis: Pneumothorax, Air Leak Right Lung Post-Op Diagnosis: Pneumothorax, Air Leak Right Lung Procedure Operation Date: 01/01/19 11:30 Actual Procedures p Right Video Assisted Thoracoscopy, Repair of Air Leak(Right) - Hugo Parsons MD, FACS Pleural flap to cover repair Surgeon Hugo Parsons MD, FACS Dry Cleaning Machine Operator Helper Rajesh REYNAGA Estimated Blood Loss 25 Findings Consistent with Post-Op Diagnosis Specimens Specimen Description: A. Superior segment right lower lobe Drains Chest Tube (24 Thal)
[2019-01-01] MEDS ORDERED: GLYCOPYRROLATE 0.2 MG/ML VIAL ONE (15:47)
[2019-01-01] MEDS ORDERED: NEOSTIGMINE METHYLSULFATE 5 MG/5 ML SYR ONE (15:47)
[2019-01-01] MEDS ORDERED: METOCLOPRAMIDE HCL INJ 5 MG/ML 2 ML VIAL IV ONE (15:55)
--- NOTE | 2019-01-01 16:26 | XRay Report ---
XR chest 1V portable CLINICAL HISTORY: 73 years-old Female presenting with pneumothorax. TECHNIQUE: Portable upright AP view of the chest was obtained. COMPARISON: 12/31/2018. FINDINGS: Right pleural drain position at the right apex. Mediastinal shift to the right. Atherosclerosis of th e aortic arch. Postsurgical changes of the right lung evident in the hilum and at the right apex. Sig nificant decreased size of the small right apical pneumothorax. There is likely an increased effusion component. Increased chest wall and base of the neck soft tissue emphysema. Bibasilar opacities cedric lar to prior. The left lung is hyperinflated with heterogeneous radiolucency. Osseous structures norm al. Upper abdomen normal. IMPRESSION: 1. Decreased size of the small right pneumothorax likely with a developing right pleural effusion. R ight pleural drain in place. 2. Postsurgical changes of the right lung with resultant volume loss and rightward mediastinal shift . 3. Hyperinflation and heterogeneity of the left lung suggest underlying emphysema. Electronically signed by: Mike Horvath M.D. 01/01/2019 4:25 PM
--- NOTE | 2019-01-01 16:36 | Anesthesiology Progress Note ---
Date of Service January 01, 2019 Anesthesia Post Procedure Vital Signs Vital Signs: Temp Pulse Pulse Resp BP BP Pulse Ox 01/01/19 16:25 61 14 172/77 H 100 01/01/19 16:15 65 15 168/77 H 100 01/01/19 16:05 61 16 159/93 H 97 01/01/19 15:55 36.3 C L 87 16 139/99 95 01/01/19 13:04 36.8 C 68 20 162/63 H 98 01/01/19 11:46 36.8 C 66 16 122/75 97 01/01/19 07:30 36.7 C 64 16 132/76 95 12/31/18 23:15 37.0 C 71 16 156/80 H 96 Pain Intensity Right Lateral Chest: Pain Intensity: 3 Transfer of Care Handoff Completed per policy Notes Mental Status: alert / awake / arousable Patient Amnestic to Procedure: Yes Nausea / Vomiting: adequately controlled Pain: adequately controlled Airway Patency, RR, SpO2: stable & adequate BP & HR: stable & adequate Hydration State: stable & adequate Anesthetic Complications: no major complications apparent
[2019-01-01] MEDS ORDERED: SODIUM CHLORIDE 0.9% 1000ML 1,000 ML IV SCH (16:55)
[2019-01-01] MEDS ORDERED: OXYCODONE HCL IR 5 MG TAB (IMMEDIATE RELEASE) PO PRN (16:55)
--- NOTE | 2019-01-01 17:21 | Operative Report ---
DATE OF OPERATION: 01/01/2019 PREOPERATIVE DIAGNOSIS: Persistent air leak status post right upper lobectomy for nonsmall cell lung carcinoma. POSTOPERATIVE DIAGNOSIS: Air leak from superior segment right upper lobe in emphysematous portion. PROCEDURE: 1. Reoperative right thoracoscopy with exploration and lysis of adhesions. 2. Stapling of segment of right lower lobe superior segment to control air leak with reinforced nicci. 3. Creation of a pleural tent, the right upper pleural cavity. 4. Application of ProGel to staple line. 5. The use of fibrin glue inside of pleural tent to hold in place. SURGEON: Hugo Parsons MD. STRAW HAT MACHINE OPERATOR: RONNELL Solis ANESTHESIA: General anesthesia with single lumen intubation. SPECIFICS OF PROCEDURE AND FINDINGS: Susie Gallardo is a simply delightful 73-year-old female who had a mass in her right upper lobe continued to grow and on 12/04/2018 I took her to the operating room and did a robot-assisted right upper lobectomy with mediastinal lymphadenectomy. She has a tiny air leak at conclusion of the case; however, it enlarged after surgery. Her lung remained expanded, so I put a Heimlich valve on her, but she did not improve. She came in about 2 weeks after surgery and she had a larger pneumothorax and had a very large air leak. For this reason, I brought her to the operating room 6 days ago on 12/26/2018 and found an area in the superior segment of the lower lobe on the right which was markedly emphysematous. I wedged this out with an Endo-PAUL stapler and she had no air leak. I was quite pleased and got her back to the recovery room and that evening I went back to see her and she had a tiny air leak. This was larger by the next day. It seemed to settle down over the next 2-3 days, but yesterday I came in as she was eating breakfast and the leak was huge. She also had incomplete expansion of her lung. I felt the best thing to do would be to take her back to the operating room. We did discuss other options such as endobronchial valve, etc. On 01/01/2019, I took the patient back to the operating room and there was another area of the superior segment of the lower lobe which was markedly emphysematous. This was not in the area of our staple line. I ended up stapling a bit more of the lung including the staple line and we had no leak at all. I used reinforced Endo-PAUL nicci. We did not see an air leak after this. I sprayed ProGel over the staple line to help control any further leaking. The patient also had some adhesions of the lower lobe to the chest wall, which were easily taken down bluntly. She really had no fluid in the chest. I then created a pleural tent by taking the parietal pleura down from about midway up the chest down to lay over the remaining lung. This actually came up very nicely. I was afraid the patient may have a space problem as her lung did not really expand. I then created fibrin glue by mixing thrombin and calcium chloride with cryoprecipitate and spraying it over the staple line, but also inside on the pleural tent. This was held it in place and would also help with the leak. We then placed a single 24-Welsh chest tube and she tolerated it well. DESCRIPTION OF PROCEDURE: The patient was brought to the operating room, laid in supine position. General anesthesia induced and endotracheal intubation was performed with single lumen tube. The patient was then placed in a left lateral decubitus position, her right chest prepped and draped in usual sterile fashion. I had anesthesia give a very low tidal volumes and I removed her chest tube as she had a significant leak. She was prepped and draped in usual sterile fashion. After appropriate antibiotics had been given and a timeout had been called, I went through the chest tube site with a 5 mm port and used a 5 mm 30 degree scope. She really had no fluid and her lung was not expanded. She did have some adhesions. I placed another 5 mm port anteriorly and then another 5 mm port posteriorly. These were both at the level of the scapula. I then used some cotton-tipped applicators to take down the adhesions of the right lower lobe to the anterior chest wall inferiorly. I closely inspected and really did not see any evidence of any blebs or fluid. After taking down all adhesions, I then carefully inflated the lung and it could be seen that she was leaking from a spot in the superior segment of the lower lobe. Bit surprised because this was not an area of our staple line. There is a good cm away and she definitely did not have the 6 days ago when we closed. It was a significant leak. It should be noted that the lung was markedly emphysematous in this area. I then used an Endo-PAUL with black load with reinforced staple lines to staple across this and remove a small segment. We then inflated the lung under warm saline and saw no other leaks. I closely inspected every part of the lung including the entire right lower lobe as well as the middle lobe. There was no further leaking. We then dried this up and with the lung held inflated I sprayed ProGel over this entire staple line and the bronchus. I then performed a pleural tent by using a cautery and cutting it up just a bit about senior living up the chest. I then grasped the end of scored pleura and brought it down bluntly. There were a few holes where we had thoracoscopy ports, but eventually got all this down and it laid very nicely over the entire repair and the upper portion of the lower lobe and middle lobe. I then mixed 100 mL of cryoprecipitate with 100 mL of thrombin mixed with a small amount of calcium chloride. These were sprayed together and this formed fibrin glue which we completely covered the staple line and the entire operative area of the hilum . I then dropped the pleura over this and it stayed quite nicely in place. We also placed some of the glue above it. A single 24-Welsh chest tube was placed through a separate stab wound anteriorly and directed towards the apex and sutured in place with heavy silk suture. The old chest tube site was a bit macerated. We closed the muscle layers with 0 Vicryl. We then used nylon in a simple fashion x2 to close this, but left it open enough for us to put Acticoat Flex in it to act as a wick. The other two 5 mm ports were closed with 4-0 Monocryl in running subcuticular fashion. She had no air leak at conclusion of case. X-ray looked quite good. She had a bit of incomplete expansion but this is under the area of her pleural tent and I think this should be quite good. We kept her on low suction. She was extubated in the room with negligible blood loss. I attest to the content of the Intraoperative Record and any orders documented therein. Any exceptions are noted below. LOREN
[2019-01-01] MEDS: ACETAMINOPHEN 1,000 MG/100 ML VIAL IV SCH (18:07)
[2019-01-01] MEDS: RALOXIFENE HCL 60 MG TAB PO SCH (20:52)
[2019-01-01] MEDS: ATORVASTATIN 10 MG TAB PO SCH (20:52)
[2019-01-02] MEDS ORDERED: CLINDAMYCIN 600 MG/54 ML BAG IV SCH ×2 (06:00)
[2019-01-02] MEDS: LEVOTHYROXINE SODIUM 75 MCG TABLET PO SCH (06:02)
[2019-01-02] MEDS: ACETAMINOPHEN 1,000 MG/100 ML VIAL IV SCH (06:02)
--- NOTE | 2019-01-02 07:12 | XRay Report ---
XR chest 1V portable HISTORY: pneumothorax COMPARISON: Chest 01/01/2019. FINDINGS: Right-sided chest tube terminates in the right lung apex, unchanged. Small right hydropneum othorax similar in size. There are suture material within the right lung apex. The heart is normal in size. Emphysema. The left lung is clear. IMPRESSION: No change in the small right hydropneumothorax and position of the right-sided chest tube. Electronically signed by: Deon Milan M.D. 01/02/2019 7:11 AM
[2019-01-02] MEDS: CYANOCOBALAMIN 500 MCG TABLET (VITAMIN B-12) PO SCH (08:32)
[2019-01-02] MEDS: VILANTEROL INH SCH (08:32)
[2019-01-02] MEDS: FLUTICASONE INH SCH (08:32)
[2019-01-02] MEDS: MONTELUKAST SODIUM 10 MG TABLET PO SCH (08:32)
[2019-01-02] MEDS: ENOXAPARIN INJ 40 MG/0.4 ML SYR SQ SCH (08:33)
[2019-01-02] MEDS: CALCIUM CARBONATE 1250MG TAB PO SCH (08:33)
[2019-01-02] MEDS: CHOLECALCIFEROL 1,000 UNITS TAB PO SCH ×2 (08:34→21:09)
[2019-01-02] MEDS: INSULIN ASPART 100 UNITS/ML 3 ML PEN SC SCH ×4 (08:51→22:04)
--- NOTE | 2019-01-02 09:25 | Progress Note ---
DATE: 01/02/2019 Ms. Gallardo was seen today on 01/02/2019. She is one day status post a creation of a pleural tent with stapling of a leak from her emphysematous lung. She had no air leak at all in the operating room, she had no air leak last night when I left. She has an air leak this morning. Having said that, it is small. Her lung is expanded. There is a pleural tent, which is holding the lung so there is an extrapleural space at the apex, but quite frankly I think it looks good. I had a long talk with the patient and her . We are going to have to wait this out and see how she does with this. She has a markedly emphysematous lung and I do not want to go in and remove any more of it. We used ProGel fibrin glue and a pleural tent as well as stapling of the obvious leak. I think the problem is her lung is simply emphysematous. We will discontinue suction on the tube.
[2019-01-02] MEDS: ACETAMINOPHEN 325 MG TAB PO SCH ×3 (11:52→23:53)
[2019-01-02] MEDS: RALOXIFENE HCL 60 MG TAB PO SCH (21:08)
[2019-01-02] MEDS: ATORVASTATIN 10 MG TAB PO SCH (21:08)
[2019-01-03] MEDS: LEVOTHYROXINE SODIUM 75 MCG TABLET PO SCH (05:34)
[2019-01-03] MEDS: ACETAMINOPHEN 325 MG TAB PO SCH (05:34)
[2019-01-03] MEDS: FLUTICASONE INH SCH (05:35)
[2019-01-03] MEDS: VILANTEROL INH SCH (05:35)
--- NOTE | 2019-01-03 07:26 | XRay Report ---
XR chest 1V portable CLINICAL HISTORY: 73 years-old Female presenting with pneumothorax. TECHNIQUE: Portable upright AP view of the chest was obtained. COMPARISON: 01/02/2019. FINDINGS: Large bore right pleural drain position at the right apex. Mild associated soft tissue emphysema luz marina g the right base of the neck and right upper chest wall. Atherosclerosis of the aortic arch. Cardiac silhouette normal in size. Postsurgical changes of the right lung at the apex and hilum. Persistent s mall to moderate right pleural effusion unchanged in size. New or increased size of the small right p leural effusion fusion. Heterogeneous radiolucency of the left lung with mild hyperinflation as on pr ior. Osseous structures normal. Upper abdomen normal. IMPRESSION: 1. Stable appearance of the small to moderate right pneumothorax with the right pleural drain remain ing in place. 2. Increased size of a small right pleural effusion. 3. Underlying emphysema. Electronically signed by: Mike Horvath M.D. 01/03/2019 7:25 AM
[2019-01-03] MEDS: CYANOCOBALAMIN 500 MCG TABLET (VITAMIN B-12) PO SCH (08:54)
[2019-01-03] MEDS: CHOLECALCIFEROL 1,000 UNITS TAB PO SCH (08:54)
[2019-01-03] MEDS: MONTELUKAST SODIUM 10 MG TABLET PO SCH (08:54)
[2019-01-03] MEDS: ENOXAPARIN INJ 40 MG/0.4 ML SYR SQ SCH (08:54)
[2019-01-03] MEDS: CEROVITE ADV FORMULA TAB PO SCH (08:54)
[2019-01-03] MEDS: CALCIUM CARBONATE 1250MG TAB PO SCH (08:54)
[2019-01-03] MEDS: INSULIN ASPART 100 UNITS/ML 3 ML PEN SC SCH (08:57)
[2019-01-03] MEDS ORDERED: TRAMADOL HCL 50 MG TABLET PO PRN (10:38)
--- NOTE | 2019-01-03 17:19 | Discharge Summary ---
DISCHARGE DIAGNOSES: 1. Prolonged air leak status post lobectomy. 2. Stage IIIA nonsmall cell lung carcinoma. 3. Status post robot-assisted thoracoscopic right upper lobectomy and mediastinal lymphadenectomy. 4. Diabetes mellitus. HOSPITAL COURSE: Susie Gallardo is a very nice 73-year-old female who was found to have a large mass in the right upper lobe and underwent a workup. We felt she was a candidate for a resection. On 12/04/2018, I performed a robot-assisted thoracoscopic right upper lobectomy. She did very well and did not appear to have much of an air leak; however, the patient was found to have a 3a lung carcinoma. She had level 4 and level 2 lymph nodes involved when we did a lymphadenectomy. I am a bit surprised at this as we did an endobronchial ultrasound some nodes were not enlarged and were not hypermetabolic. She did well except for the fact that she had an air leak. She was operated on 12/04/2018 and we discharged her on 12/11/2018 with a Heimlich valve in place. When she came back to see me in the office she did not have complete expansion of the lung and her leak was larger. I brought her back and took her to the operating room on 12/26/2018 and found an area that was leaking. I stapled across that and she had no air leak in the operating room. She had no air leak the night after surgery. She had a larger air leak the following morning. It was a bit disturbing and she also did not have complete expansion of her lung; I believe there may have been a space problem. For this reason 6 days later I took her back a second time and again found a leak; however, it was from emphysematous lung in the superior segment of the right lower lobe. I stapled this off with reinforced nicci. I also put ProGEL glue. I made fibrin glue. I performed a pleural tent and pulled it down over the upper part of the lung and held it in place by injecting fibrin glue both on the lung itself as well as on the pleural flap to keep it in place. The patient did not have an air leak at the time of surgery. She did not have an air leak that night. The following day she did have an air leak. She has markedly emphysematous lung. We kept her on waterseal and although she did not have complete expansion of her lung we had created a pleural tent. For this reason, I elected to proceed with discharge home with a Heimlich valve in place. She is on room air and she is ambulating. She does have some pain because of the chest tube; however, she is better than she was before the second operation. At this point I was quite happy with her. I will see her back in the office in 3 days with an x-ray. I gave them my cell phone number and told them to call me should there be any problems.
--- NOTE | 2019-01-08 10:48 | Coding Query ---
CODING QUERY To promote full compliance with coding requirements relating to patient care, provider participation is requested in all cases of foot orthopedist uncertainty. Please assist us with the question(s) below: Coding Question(s): 1. There is persistent air leak and pneumothorax documented upon admission and, per the 1st Operative Report on 12/26/18, right bronchopleural fistula following a lobectomy. Please specify below, in your clinical opinion, regarding each of these diagnoses. A. Regarding the Right Bronchopleural Fistula ( ) likely a postoperative complication ( ) not a postoperative complication ( ) ruled-out ( x ) other: Please Specify____The patient developed air leaks after each surgery which were not related to her staple lines or operative sites. My assumption is that her leaks originate from her markedly emphysematous lung from areas expanding due to the expansion of the visceral pleural surface. B. Regarding the Persistent Air Leak ( ) likely a postoperative complication ( ) not a postoperative complication ( ) ruled-out ( ) other: Please Specify see A above C. Regarding the Pneumothorax ( ) likely a postoperative complication ( ) not a postoperative complication ( ) ruled-out ( ) other: Please Specify see A above 2. There is air leak again documented after the Procedure done on 12/26/18. Please specify below, in your clinical opinion, regarding the air leak after the 12/26/18 procedure. ( ) likely a postoperative complication ( ) not a postoperative complication ( ) ruled-out ( ) other: Please Specify see A above Dr Parsons Physician's Response(s): Thank you Deanna Damon Principal Diagnosis: "that condition established after study, to be chiefly responsible for occasioning the admission of the patient to the hospital for care." Co-Existing Principal Diagnosis: "when two or more diagnoses equally meet the criteria for principal diagnosis as determined by the circumstances of admission, diagnostic work up, and/or therapy provided, and the Alphabetic Index, Tabular List, or another coding guideline does not provide sequencing direction, any one of the diagnoses may be sequenced first." "When the physician has documented what appears to be a current diagnosis in the body of the record, but has not included the diagnosis in the final diagnostic statement, the physician should be asked whether the diagnosis should be added." (Source [facility] 2 QTR90. p3-4) LOREN
== END 2019-01-03 11:48 | disposition home or self-care (01) | DRG 164 ==
LOC: ASU 09:49 → 3N 12:22

== ENCOUNTER 2023-01-24 18:07 | Inpatient (IN) ==
[2023-01-24 19:33] LABS: Basophils % (auto) 1.1 %; Eosinophils # (auto) 0.22 K/uL (0.00-0.50); Eosinophils % (auto) 2.4 %; Hematocrit (blood only) 41.1 % (37.0-47.0); Immature Granulocytes # (auto) 0.07 K/uL (0.01-0.20); Immature Granulocytes % (auto) 0.8 %; Lymphocytes # (auto) 1.24 K/uL (1.20-3.40); Lymphocytes % (auto) 13.5 %; Mean Corpuscular Hemoglobin 31.5 pg (25.0-34.0); Mean Corpuscular Hgb Conc 34.1 g/dL (32.0-36.0); Mean Corpuscular Volume 92.4 fL (80.0-100.0); Mean Platelet Volume 9.5 fL (9.4-12.4); Monocytes # (auto) 0.99 K/uL (0.11-0.59); Monocytes % (auto) 10.8 %; Neutrophils # (auto) 6.54 K/uL (1.40-6.50); Neutrophils % (auto) 71.4 %; Platelet Count 362 K/uL (130-400); RDW Coefficient of Variation 12.6 % (11.5-14.5); RDW Standard Deviation 42.7 fL (36.4-46.3); Red Blood Count 4.45 M/uL (4.20-5.40); White Blood Count 9.16 K/ul (4.8-10.8)
--- NOTE | 2023-01-24 19:58 | History & Physical Report ---
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 Per the ED staff, the patient's is currently admitted to our ICU, he was her primary caregiver prior to his admission. Since then her family has been unable to care for her and she needs placement. The patient has reportedly been accepted to [facility] but will not have an available bed until tomorrow. In the ED she remained stable. Labs were significant Allergies Allergy/AdvReac Type Severity Reaction Status Date / Time Sulfa (Sulfonamide Allergy Severe "ALMOST Verified 11/14/22 10:25 Antibiotics) " levofloxacin [From Levaquin] AdvReac Intermediate UPSET Verified 11/14/22 10:25 STOMACH adhesive AdvReac Mild RASH ON Verified 11/14/22 10:25 SKIN/SKIN IRRITATION Home Medications Medication Instructions Recorded Confirmed Type cholecalciferol (vitamin D3) 25 1,000 units PO BID 11/11/18 11/14/22 History mcg (1,000 unit) capsule cyanocobalamin (vitamin B-12) 1,000 mcg PO QAM 11/11/18 11/14/22 History 1,000 mcg capsule montelukast 10 mg tablet 10 mg PO QAM 11/11/18 11/14/22 History ipratropium 0.5 mg-albuterol 3 mg 3 ml inhalation QID PRN SHORT OF 05/14/19 11/14/22 Rx (2.5 mg base)/3 mL nebulization BREATH #120 vials soln amoxicillin 500 mg capsule 500 mg PO UD PRN BEFORE DENTAL 08/29/19 11/14/22 Rx PROCEDURE #12 caps spironolactone 25 mg tablet 25 mg PO QAM #90 tabs 08/17/20 11/14/22 Rx clotrimazole-betamethasone 1 1 applic topical BID PRN 09/30/20 11/14/22 History %-0.05 % topical cream famotidine 10 mg tablet 10 mg PO DAILY 09/30/20 11/14/22 History hydrochlorothiazide 25 mg tablet 25 mg PO QAM #90 tabs 01/10/21 11/14/22 Rx Portable Oxygen #1 ea 08/19/21 11/14/22 Rx tramadol 50 mg tablet 50 mg PO QID PRN pain #360 tabs 08/24/21 11/14/22 Rx raloxifene 60 mg tablet (Evista) 60 mg PO QPM #90 tabs 01/17/22 11/14/22 Rx albuterol sulfate 90 mcg/actuation 2 puff inhalation Q6H PRN 07/27/22 11/14/22 Rx aerosol inhaler (Ventolin HFA) shortness of breath or wheezing #8.5 grams fluticasone fur. 100 mcg-umeclid 1 inh inhalation DAILY #180 ea 07/27/22 11/14/22 Rx 62.5 mcg-vilant 25 mcg inhalat.powder (Trelegy Ellipta) atorvastatin 10 mg tablet 10 mg PO HS #90 tabs 11/15/22 Rx levothyroxine 88 mcg tablet 88 mcg PO DAILY #90 tabs 11/15/22 Rx metformin 500 mg tablet,extended 500 mg PO BID #180 tabs 12/07/22 Rx release 24 hr Past Med/Surg History Medical History (Updated 11/23/22 @ 12:25 by Kolton Calix MD) COPD (chronic obstructive pulmonary disease) stable; "severe" emphysema per 10/[address] Diabetes type 2, controlled NIDDM H/O gastric ulcer 3 years ago Hearing deficit Hyperlipidemia Hypertension Hypothyroidism s/p radioactive iodine 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) Osteoarthritis Right upper lobe pulmonary nodule Skin cancer BCC (nasal, eyelid) Teeth grinding wears mouth guard HS Surgical History H/O dilation and curettage H/O oral surgery GUM (2010), WISDOM/MOLAR TEETH EXTRACTIONS (2012) H/O pilonidal cyst removed 1965 H/O total hip arthroplasty LEFT + LEFT FEMUR/REVISION History of bilateral tubal ligation (04/1982) History of bronchoscopy History of carpal tunnel surgery (~04/2012) b/l + removal of b/l "thumb joints" History of colonoscopy History of tonsillectomy Status post lobectomy of lung (12/04/18) Robotic Right Video Assisted Thoracoscopy with Right Upper Lobe Wedge Re section, Right Upper Lobectomy with Mediastinal Lymphadenectomy Dr. Parsons 12/04/18 Patient brought back to OR 12/26/2018 for air leak repair. Anesthesia record not available. Family History Mother Diabetes Hypertension Grandmother Diabetes Father Heart disease Brother Heart disease Other Lung cancer Denies family history of Ovarian cancer Myocardial infarction Breast cancer Colorectal cancer Social History Smoking Status: Never smoker Age Started Using Tobacco: 25; Age Quit Using Tobacco: 50; packs per day: 0.75; Second Hand Exposure: Yes (IN THE PAST); Do You Dip or Chew Tobacco: No; Hx Alcohol Use: No Hx Substance Use: No Preferred Language: Nepalese Communication Ability: Effective Visual Impairment: No Limitations Hearing Ability: Use of Hearing Aid Press Assistant Required: No Beliefs That Will Affect Care: None marital status: Current Living Situation: Spouse current occupational status: retired 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
[2023-01-24 20:13] LABS: Alanine Aminotransferase 7 U/L (7-52); Albumin Globulin Ratio 1.2 (0.9-2); Alkaline Phosphatase 106 U/L (34-104); Anion Gap 7 (3-11); BUN Creatinine Ratio 19.8 (10-20); Bilirubin,Total 0.5 mg/dl (0.2-1.0); Blood Urea Nitrogen 17 mg/dl (6-23); Calcium 9.6 mg/dl (8.6-10.3); Carbon Dioxide 26 mmol/L (21-32); Chloride 104 mmol/L (98-107); Est GFR (African American) 75.5 ml/min; Est GFR (Non-African American) 65.2 ml/min; Globulin 3.4 gm/dl (2.5-4.0); Glucose 156 mg/dl (70-99(Fasting)); Sodium 137 mmol/L (136-145); Total Protein 7.4 gm/dl (6.0-8.3)
--- NOTE | 2023-01-24 20:45 | History & Physical Report ---
Date of Service January 24, 2023 Assessment & Plan (1) Dementia: Plan: 77yo female presenting from home due to inability to care for herself. She resides with her who is her primary caregiver. Unfortunately, her is presently admitted to the hospital. Patient's family contacted the [facility] due to concern for inability to care for her at home and was instructed to bring her to the ER. Referral has been made to [facility] ([facility]) - reports that patient should have a bed available tomorrow. Requesting further evaluation to ascertain if patient would be best served in the memory unit or [facility] facility. -Observation to medical -PT/OT evaluation -Patient did have some difficulty swallowing so has been made NPO with formal swallow evaluation ordered (2) Diabetes type 2, controlled: Plan: Poorly controlled DM - last SveW9D=22.2 in 11/14/22. Patient is only on Metformin at home. Blood glucose mildly elevated at 123 -Hold Metformin -ISS - goal blood sugar 110 - 140 -Check HgbA1C in AM (3) Hypothyroidism: Plan: Chronic. Elevated TSH at last check 11/14/22 =57.246 -Continue Synthroid -Check TSH in am (4) Hypertension: Plan: Blood pressure mildly elevated -Continue Spironolactone, HCTZ (5) H/O gastric ulcer: Plan: Chronic -Continue Pepcid 10mg po daily (6) COPD (chronic obstructive pulmonary disease): Plan: Chronic. Stable -Continue Trelegy, Fluticasone, Duoneb and Albuterol -Continue Singulair History of Present Illness Chief Complaint: placement needs Primary Care Provider: Kolton Calix MD Susie Gallardo is a 77yo female with history of DM, HTN, HLP, COPD and Dementia presenting for placement needs. Patient is with her niece and nephew and they assist with history. Patient presently lives in a home with her . She is ambulatory with a walker with assistance and requires some assistance with ADLs. Her acts as her primary caregiver at home. Unfortunately, patient's is presently admitted to [facility]. Patient's niece and nephew have brought her to the hospital because they are unable to care for her at home. Patient offers no acute complaints. She denies fever, chills, cough, CP, SOB. She eats well at home. No complaints of bowel or bladder problems. In the ER she is afebrile, HD stable with hypertension. NAD Allergies Allergy/AdvReac Type Severity Reaction Status Date / Time Sulfa (Sulfonamide Allergy Severe "ALMOST Verified 11/14/22 10:25 Antibiotics) " levofloxacin [From Levaquin] AdvReac Intermediate UPSET Verified 11/14/22 10:25 STOMACH adhesive AdvReac Mild RASH ON Verified 11/14/22 10:25 SKIN/SKIN IRRITATION Home Medications Medication Instructions Recorded Confirmed Type cholecalciferol (vitamin D3) 25 1,000 units PO BID 11/11/18 01/24/23 History mcg (1,000 unit) capsule cyanocobalamin (vitamin B-12) 1,000 mcg PO QAM 11/11/18 01/24/23 History 1,000 mcg capsule montelukast 10 mg tablet 10 mg PO QAM 11/11/18 01/24/23 History ipratropium 0.5 mg-albuterol 3 mg 3 ml inhalation QID PRN SHORT OF 05/14/19 01/24/23 Rx (2.5 mg base)/3 mL nebulization BREATH #120 vials soln amoxicillin 500 mg capsule 500 mg PO UD PRN BEFORE DENTAL 08/29/19 01/24/23 Rx PROCEDURE #12 caps spironolactone 25 mg tablet 25 mg PO QAM #90 tabs 08/17/20 01/24/23 Rx clotrimazole-betamethasone 1 1 applic topical BID PRN Rash 09/30/20 01/24/23 History %-0.05 % topical cream famotidine 10 mg tablet 10 mg PO DAILY 09/30/20 01/24/23 History hydrochlorothiazide 25 mg tablet 25 mg PO QAM #90 tabs 01/10/21 01/24/23 Rx Portable Oxygen #1 ea 08/19/21 11/14/22 Rx tramadol 50 mg tablet 50 mg PO QID PRN pain #360 tabs 08/24/21 01/24/23 Rx raloxifene 60 mg tablet (Evista) 60 mg PO QPM #90 tabs 01/17/22 01/24/23 Rx albuterol sulfate 90 mcg/actuation 2 puff inhalation Q6H PRN 07/27/22 01/24/23 Rx aerosol inhaler (Ventolin HFA) shortness of breath or wheezing #8.5 grams fluticasone fur. 100 mcg-umeclid 1 inh inhalation DAILY #180 ea 07/27/22 01/24/23 Rx 62.5 mcg-vilant 25 mcg inhalat.powder (Trelegy Ellipta) atorvastatin 10 mg tablet 10 mg PO HS #90 tabs 11/15/22 01/24/23 Rx levothyroxine 88 mcg tablet 88 mcg PO DAILY #90 tabs 11/15/22 01/24/23 Rx metformin 500 mg tablet,extended 500 mg PO BID #180 tabs 12/07/22 01/24/23 Rx release 24 hr Past Med/Surg History Medical History COPD (chronic obstructive pulmonary disease) stable; "severe" emphysema per 10/[address] Diabetes type 2, controlled NIDDM H/O gastric ulcer 3 years ago Hearing deficit Hyperlipidemia Hypertension Hypothyroidism s/p radioactive iodine 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) Osteoarthritis Right upper lobe pulmonary nodule Skin cancer BCC (nasal, eyelid) Teeth grinding wears mouth guard HS Surgical History H/O dilation and curettage H/O oral surgery GUM (2010), WISDOM/MOLAR TEETH EXTRACTIONS (2012) H/O pilonidal cyst removed 1965 H/O total hip arthroplasty LEFT + LEFT FEMUR/REVISION History of bilateral tubal ligation (04/1982) History of bronchoscopy History of carpal tunnel surgery (~04/2012) b/l + removal of b/l "thumb joints" History of colonoscopy History of tonsillectomy Status post lobectomy of lung (12/04/18) Robotic Right Video Assisted Thoracoscopy with Right Upper Lobe Wedge Resection, Right Upper Lobectomy with Mediastinal Lymphadenectomy Dr. Elda hendrickson 12/04/18 Patient brought back to OR 12/26/2018 for air leak repair. Anesthesia record not available. Family History Mother Diabetes Hypertension Grandmother Diabetes Father Heart disease Brother Heart disease Other Lung cancer Denies family history of Ovarian cancer Myocardial infarction Breast cancer Colorectal cancer Social History Smoking Status: Former smoker Age Started Using Tobacco: 25; Age Quit Using Tobacco: 50; packs per day: 0.75; Second Hand Exposure: Yes (IN THE PAST); Do You Dip or Chew Tobacco: No; Hx Alcohol Use: No Hx Substance Use: No Preferred Language: Armenian Communication Ability: Effective Visual Impairment: No Limitations Hearing Ability: Use of Hearing Aid Pickers Material Handlers Required: No Beliefs That Will Affect Care: None marital status: Current Living Situation: Spouse Current Living Situation Comment: Lives with who is currently in the hospital current occupational status: retired 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 Feels Safe at Home: Yes Safety Concerns: Feels Safe At This Time Seatbelt Use: always Assistive Devices: None Review of Systems Review of Systems: All systems reviewed & are unremarkable except as noted in HPI & below Physical Exam Physical Exam: General: patient resting comfortably, NAD, non-toxic in appearance, AA&O x 4 Skin: warm, dry, intact, no rashes or lesions HEENT: NC/AT, PERRL, EOMI, anicteric sclera, conjunctiva without injection, external ear normal to inspection and nontender, nares patent, moist mucus membranes, dentition intact, no oropharyngeal lesions, neck supple, trachea midline, no LAD, no thyromegaly, no JVD Heart: +S1/S2, regular, no m/r/g Lungs: equal air entry bilaterally, no rales/rhonchi/wheezes Abd: +BS, soft, NT/ND, no masses/organomegaly/ascites Ext: warm, 2+ pulses in UE/LE bilaterally, no clubbing/cyanosis or edema Neuro: nonfocal, patient AA&O x 4, speech intact, no facial droop, moving all extremities on command with equal strength 5/5 Results & Data Results & Data Vital Signs (Past 12 Hours) Vital Signs Temp Pulse Resp BP Pulse Ox O2 Del Method 01/24/23 18:35 36.6 C 74 16 145/75 H 99 Room Air Laboratory Results Laboratory Results WBC 9.16 K/ul (4.8-10.8) 01/24/23 19:12 RBC 4.45 M/uL (4.20-5.40) 01/24/23 19:12 Hgb 14.0 g/dl (12.0-16.0) 01/24/23 19:12 Hct 41.1 % (37.0-47.0) 01/24/23 19:12 MCV 92.4 fL (80.0-100.0) 01/24/23 19:12 MCH 31.5 pg (25.0-34.0) 01/24/23 19:12 MCHC 34.1 g/dL (32.0-36.0) 01/24/23 19:12 RDW Std Deviation 42.7 fL (36.4-46.3) 01/24/23 19:12 RDW Coeff of Dione 12.6 % (11.5-14.5) 01/24/23 19:12 Plt Count 362 K/uL (130-400) 01/24/23 19:12 MPV 9.5 fL (9.4-12.4) 01/24/23 19:12 Immature Gran % (Auto) 0.8 % 01/24/23 19:12 Neut % (Auto) 71.4 % 01/24/23 19:12 Lymph % (Auto) 13.5 % 01/24/23 19:12 Faulk % (Auto) 10.8 % 01/24/23 19:12 Eos % (Auto) 2.4 % 01/24/23 19:12 Baso % (Auto) 1.1 % 01/24/23 19:12 Neut # (Auto) 6.54 K/uL (1.40-6.50) H 01/24/23 19:12 Lymph # (Auto) 1.24 K/uL (1.20-3.40) 01/24/23 19:12 Faulk # (Auto) 0.99 K/uL (0.11-0.59) H 01/24/23 19:12 Eos # (Auto) 0.22 K/uL (0.00-0.50) 01/24/23 19:12 Baso # (Auto) 0.10 K/uL (0.00-0.20) 01/24/23 19:12 Immature Gran # (Auto) 0.07 K/uL (0.01-0.20) 01/24/23 19:12 Sodium 137 mmol/L (136-145) 01/24/23 19:12 Potassium 3.7 mmol/L (3.5-5.1) 01/24/23 21:35 Chloride 104 mmol/L (98-107) 01/24/23 19:12 Carbon Dioxide 26 mmol/L (21-32) 01/24/23 19:12 Anion Gap 7 (3-11) 01/24/23 19:12 BUN 17 mg/dl (6-23) 01/24/23 19:12 Creatinine 0.86 mg/dl (0.6-1.2) 01/24/23 19:12 Est Cr Clr Drug Dosing Not Reportable 01/24/23 19:12 Est GFR ( Amer) 75.5 ml/min 01/24/23 19:12 Est GFR (Non-Af Amer) 65.2 ml/min 01/24/23 19:12 BUN/Creatinine Ratio 19.8 (10-20) 01/24/23 19:12 Glucose 156 mg/dl (70-99(Fasting)) H 01/24/23 19:12 POC Glucose 123 mg/dl (70-99) H 01/24/23 22:58 Calcium 9.6 mg/dl (8.6-10.3) 01/24/23 19:12 Total Bilirubin 0.5 mg/dl (0.2-1.0) 01/24/23 19:12 AST 11 U/L (13-39) L 01/24/23 21:35 ALT 7 U/L (7-52) 01/24/23 19:12 Alkaline Phosphatase 106 U/L (34-104) H 01/24/23 19:12 Total Protein 7.4 gm/dl (6.0-8.3) 01/24/23 19:12 Albumin 4.0 gm/dl (3.4-5.0) 01/24/23 19:12 Globulin 3.4 gm/dl (2.5-4.0) 01/24/23 19:12 Albumin/Globulin Ratio 1.2 (0.9-2) 01/24/23 19:12 PG Care Time/CCT Total # of Minutes Spent Total Time Spent with Patient: Total time spent is greater than 50% in coordination of care (as documented) at patient's floor/unit and/or counseling patient: Coding Level of Care Code 25149 INT INP/OBS CARE 2/55MIN Diagnoses Dementia F03.90 Diabetes type 2, controlled E11.9 Hypothyroidism E03.9 Hypertension I10 H/O gastric ulcer Z87.19 COPD (chronic obstructive pulmonary disease) J44.9
[2023-01-24 22:04] LABS: Potassium 3.7 mmol/L (3.5-5.1)
[2023-01-24] MEDS ORDERED: ALBUT/IPRATROP 3MG/0.5MG NEB 3 ML VIAL INH PRN (22:39)
[2023-01-24] MEDS ORDERED: ONDANSETRON INJ 2 MG/ML 2 ML VIAL IV PRN (22:39)
[2023-01-24] MEDS ORDERED: traMADol HCL 50 MG TABLET PO PRN (22:39)
[2023-01-24] MEDS ORDERED: ALBUTEROL HFA 8 GM INHALER INH PRN (22:39)
[2023-01-24] MEDS ORDERED: ACETAMINOPHEN 325 MG TAB PO PRN (22:39)
[2023-01-24] MEDS ORDERED: GLUCAGON FOR INJ 1 MG VIAL SQ PRN (22:39)
[2023-01-24] MEDS ORDERED: GLUCOSE 40% GEL 15 GM TUBE PO PRN (22:39)
[2023-01-24] MEDS ORDERED: CARBOHYDRATES FOR HYPOGLYCEMIA PO PRN (22:39)
[2023-01-24] MEDS ORDERED: POLYETHYLENE (MIRALAX) 17 GM PACK PO PRN (22:39)
[2023-01-24] MEDS ORDERED: GLUCOSE 10 TAB/TUBE PO PRN (22:39)
[2023-01-24] MEDS ORDERED: DEXTROSE 50% 50 ML SYRINGE IV PRN (22:39)
[2023-01-24] MEDS: ATORVASTATIN 10 MG TAB PO SCH (23:01)
[2023-01-24] MEDS: RALOXIFENE HCL 60 MG TAB PO SCH (23:01)
[2023-01-24] MEDS: INSULIN ASPART PER UNIT CHARGE SC SCH (23:01)
--- NOTE | 2023-01-25 01:33 | Emergency Department Note ---
History of Present Illness General Chief complaint: Altered Mental Status Stated complaint: ALTERED MENTAL STATUS Time Seen by Provider: 01/24/23 19:24 History of Present Illness Provider complaint: Placement 77-year-old female is here with her family to be admitted to be placed [facility]. Patient has dementia and her primary caregiver is in the ICU. Family states they cannot take care of the patient. They report no falls or fevers. No nausea or vomiting. They state they contacted [facility] and they were told to bring the patient into the emergency department to be admitted so that she can be placed there tomorrow. Home Medications Medication Instructions Recorded Confirmed Type cholecalciferol (vitamin D3) 25 1,000 units PO BID 11/11/18 01/24/23 History mcg (1,000 unit) capsule cyanocobalamin (vitamin B-12) 1,000 mcg PO QAM 11/11/18 01/24/23 History 1,000 mcg capsule montelukast 10 mg tablet 10 mg PO QAM 11/11/18 01/24/23 History ipratropium 0.5 mg-albuterol 3 mg 3 ml inhalation QID PRN SHORT OF 05/14/19 01/24/23 Rx (2.5 mg base)/3 mL nebulization BREATH #120 vials soln amoxicillin 500 mg capsule 500 mg PO UD PRN BEFORE DENTAL 08/29/19 01/24/23 Rx PROCEDURE #12 caps spironolactone 25 mg tablet 25 mg PO QAM #90 tabs 08/17/20 01/24/23 Rx clotrimazole-betamethasone 1 1 applic topical BID PRN Rash 09/30/20 01/24/23 History %-0.05 % topical cream famotidine 10 mg tablet 10 mg PO DAILY 09/30/20 01/24/23 History hydrochlorothiazide 25 mg tablet 25 mg PO QAM #90 tabs 01/10/21 01/24/23 Rx Portable Oxygen #1 ea 08/19/21 11/14/22 Rx tramadol 50 mg tablet 50 mg PO QID PRN pain #360 tabs 08/24/21 01/24/23 Rx raloxifene 60 mg tablet (Evista) 60 mg PO QPM #90 tabs 01/17/22 01/24/23 Rx albuterol sulfate 90 mcg/actuation 2 puff inhalation Q6H PRN 07/27/22 01/24/23 Rx aerosol inhaler (Ventolin HFA) shortness of breath or wheezing #8.5 grams fluticasone fur. 100 mcg-umeclid 1 inh inhalation DAILY #180 ea 07/27/22 Rx 62.5 mcg-vilant 25 mcg inhalat.powder (Trelegy Ellipta) atorvastatin 10 mg tablet 10 mg PO HS #90 tabs 11/15/22 01/24/23 Rx levothyroxine 88 mcg tablet 88 mcg PO DAILY #90 tabs 11/15/22 01/24/23 Rx metformin 500 mg tablet,extended 500 mg PO BID #180 tabs 12/07/22 01/24/23 Rx release 24 hr Allergies Allergy/AdvReac Type Severity Reaction Status Date / Time Sulfa (Sulfonamide Allergy Severe "ALMOST Verified 11/14/22 10:25 Antibiotics) " levofloxacin [From Levaquin] AdvReac Intermediate UPSET Verified 11/14/22 10:25 STOMACH adhesive AdvReac Mild RASH ON Verified 11/14/22 10:25 SKIN/SKIN IRRITATION Past Med/Surg History Medical History (Updated 01/25/23 @ 01:33 by Demario Ogden MD) COPD (chronic obstructive pulmonary disease) stable; "severe" emphysema per 10/[address] Diabetes type 2, controlled NIDDM H/O gastric ulcer 3 years ago Hearing deficit Hyperlipidemia Hypertension Hypothyroidism s/p radioactive iodine 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) Osteoarthritis Right upper lobe pulmonary nodule Skin cancer BCC (nasal, eyelid) Teeth grinding wears mouth guard HS Surgical History H/O dilation and curettage H/O oral surgery GUM (2010), WISDOM/MOLAR TEETH EXTRACTIONS (2012) H/O pilonidal cyst removed 1965 H/O total hip arthroplasty LEFT + LEFT FEMUR/REVISION History of bilateral tubal ligation (04/1982) History of bronchoscopy History of carpal tunnel surgery (~04/2012) b/l + removal of b/l "thumb joints" History of colonoscopy History of tonsillectomy Status post lobectomy of lung (12/04/18) Robotic Right Video Assisted Thoracoscopy with Right Upper Lobe Wedge Resection, Right Upper Lobectomy with Mediastinal Lymphadenectomy Dr. Parsons 12/04/18 Patient brought back to OR 12/26/2018 for air leak repair. Anesthesia record not available. Family History Mother Diabetes Hypertension Grandmother Diabetes Father Heart disease Brother Heart disease Other Lung cancer Denies family history of Ovarian cancer Myocardial infarction Breast cancer Colorectal cancer Social History Smoking Status: Former smoker Age Started Using Tobacco: 25; Age Quit Using Tobacco: 50; packs per day: 0.75; Second Hand Exposure: Yes (IN THE PAST); Do You Dip or Chew Tobacco: No; Hx Alcohol Use: No Hx Substance Use: No Preferred Language: Montenegrin Communication Ability: Effective Visual Impairment: No Limitations Hearing Ability: Use of Hearing Aid Manager Field Required: No Beliefs That Will Affect Care: None marital status: Current Living Situation: Spouse Current Living Situation Comment: Lives with who is currently in the hospital current occupational status: retired 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 Feels Safe at Home: Yes Safety Concerns: Feels Safe At This Time Seatbelt Use: always Assistive Devices: None Physical Exam Vital Signs Vital Signs - 24 hr 01/24/23 18:35 Temperature 36.6 C Temperature Source Temporal Artery Scan Pulse Rate 74 Respiratory Rate 16 Respiratory Effort / Characteristics Non-Labored Respiratory Depth Normal Blood Pressure 145/75 H Blood Pressure Mean 98 Pulse Oximetry 99 Oxygen Delivery Method Room Air Sepsis Recent Fever Within 48 Hours No Sepsis New/Unexplained Change in Mental Status No Sepsis Action Taken by Nursing No Action Required Physical Exam GENERAL: oriented to person, place, and time. appears well-developed and well- nourished. HENT: Exam performed. - Head: Normocephalic and atraumatic. EYES: Conjunctivae and EOM are normal. Right eye exhibits no discharge. Left eye exhibits no discharge. No scleral icterus. NECK: Normal range of motion. Neck supple. No JVD present. CV: Normal rate, regular rhythm, normal heart sounds and intact distal pulses. There is no peripheral edema. Palpable radial pulses bue. PULM/CHEST: Effort normal and breath sounds normal. No respiratory distress. No stridor. no wheezes. no rales. ABD: The abdomen is soft. There is no tenderness. NEURO: Motor and sensation grossly intact. SKIN: Skin is warm and dry. He is not diaphoretic. PSYCH: normal mood and affect. Behavior is normal. Judgment and thought content normal. Course Course 1923: The patient was evaluated in room CP WAIT. A complete history and physical exam was performed Administered Medications Atorvastatin Calcium (Atorvastatin 10 Mg Tab) 10 mg PO HS VIKY Stop: 02/23/23 22:38 Last Admin: 01/24/23 23:01 Dose: Not Given Documented By: [facility] Insulin Aspart (Insulin Aspart Per Unit Charge) 0 units SC Q6 VIKY Stop: 02/23/23 22:59 Last Admin: 01/24/23 23:01 Dose: Not Given Documented By: [facility] Raloxifene HCl (Raloxifene Hcl 60 Mg Tab) 60 mg PO QPM VIKY Stop: 02/23/23 22:38 Last Admin: 01/24/23 23:01 Dose: Not Given Documented By: [facility] Medical Decision Making Laboratory Data Attestation: I reviewed the patient's lab results. 01/24/23 19:12 01/24/23 21:35 Lab Results 01/24/23 01/24/23 Range/Units 19:12 19:12 WBC 9.16 (4.8-10.8) K/ul RBC 4.45 (4.20-5.40) M/uL Hgb 14.0 (12.0-16.0) g/dl Hct 41.1 (37.0-47.0) % MCV 92.4 (80.0-100.0) fL MCH 31.5 (25.0-34.0) pg MCHC 34.1 (32.0-36.0) g/dL RDW Std Deviation 42.7 (36.4-46.3) fL RDW Coeff of Dione 12.6 (11.5-14.5) % Plt Count 362 (130-400) K/uL MPV 9.5 (9.4-12.4) fL Immature Gran % (Auto) 0.8 % Neut % (Auto) 71.4 % Lymph % (Auto) 13.5 % Coryell % (Auto) 10.8 % Eos % (Auto) 2.4 % Baso % (Auto) 1.1 % Neut # (Auto) 6.54 H (1.40-6.50) K/uL Lymph # (Auto) 1.24 (1.20-3.40) K/uL Coryell # (Auto) 0.99 H (0.11-0.59) K/uL Eos # (Auto) 0.22 (0.00-0.50) K/uL Baso # (Auto) 0.10 (0.00-0.20) K/uL Immature Gran # (Auto) 0.07 (0.01-0.20) K/uL Sodium 137 (136-145) mmol/L Potassium TNP Chloride 104 (98-107) mmol/L Carbon Dioxide 26 (21-32) mmol/L Anion Gap 7 (3-11) BUN 17 (6-23) mg/dl Creatinine 0.86 (0.6-1.2) mg/dl Est Cr Clr Drug Dosing Not Reportable Est GFR ( Amer) 75.5 ml/min Est GFR (Non-Af Amer) 65.2 ml/min BUN/Creatinine Ratio 19.8 (10-20) Glucose 156 H (70-99(Fasting)) mg/dl Calcium 9.6 (8.6-10.3) mg/dl Total Bilirubin 0.5 (0.2-1.0) mg/dl AST TNP ALT 7 (7-52) U/L Alkaline Phosphatase 106 H (34-104) U/L Total Protein 7.4 (6.0-8.3) gm/dl Albumin 4.0 (3.4-5.0) gm/dl Globulin 3.4 (2.5-4.0) gm/dl Albumin/Globulin Ratio 1.2 (0.9-2) MDM Narrative Patient will be admitted to the [facility] hospitalist team Dr. Perales notified. Impression & Plan Dementia Discharge Plan Visit Data Chief Complaint: Altered Mental Status Stated Complaint: ALTERED MENTAL STATUS ED Provider: Demario Ogden Discharge Problem: Dementia Patient Disposition: Admitted As Inpatient Discharge Instructions Interventions: ED Discharge Assessment Last Done: 01/24/23 22:16
[2023-01-25] MEDS: LEVOTHYROXINE SODIUM 88 MCG TABLET PO SCH (05:24)
[2023-01-25] MEDS: INSULIN ASPART PER UNIT CHARGE SC SCH ×4 (05:53→19:41)
[2023-01-25 07:45] LABS: Thyroid Stimulating Hormone 5.754 uIu/ml (0.300-4.500)
[2023-01-25 07:46] LABS: Estimated Average Glucose 177 mg/dl; Hemoglobin A1C 7.8 % (4.5-5.6)
[2023-01-25 08:21] LABS: T4 Free Thyroxine 0.84 ng/dl (0.61-1.60)
[2023-01-25] MEDS: FLUTICASONE FUROATE 100MCG 14 PUFFS/INHALER INH SCH (08:30)
[2023-01-25] MEDS: UMECLIDINIUM/VILANTEROL 62.5/25MCG 7 PUFFS/INHALER INH SCH (08:30)
[2023-01-25] MEDS ORDERED: NON-FORMULARY MEDICATION (Fluticasone-Umeclidin-Vilanter [Trelegy Ellipta] 100-62.5-25 mcg INH SCH (09:00)
[2023-01-25] MEDS: MONTELUKAST SODIUM 10 MG TABLET PO SCH (10:26)
[2023-01-25] MEDS: SPIRONOLACTONE 25 MG TAB PO SCH (10:26)
[2023-01-25] MEDS: hydroCHLOROthiazide 25 MG TAB PO SCH (10:26)
[2023-01-25] MEDS: FAMOTIDINE 10 MG TABLET PO SCH (10:26)
[2023-01-25] MEDS ORDERED: Nursing to Pharmacy Communication SCH (14:00)
--- NOTE | 2023-01-25 17:11 | Hospitalist Progress Note ---
Date of Service January 25, 2023 Assessment & Plan (1) Dementia: Plan: 77yo female presenting from home due to inability to care for herself. She has significant dementia and is oriented only to self. She resides with her who is her primary caregiver. Unfortunately, her is admitted at this hospital and is critically ill. Her family contacted the [facility]ging due to concern for inability to care for her at home and was instructed to bring her to the ER. Referral has been made to [facility]. Requested further evaluation to ascertain if patient would be best served in the memory unit or shelter facility. -PT/OT evaluation -She had ST evaluation because she was said to have had swallowing difficulty, however, she did not present with any dysphagia and was cleared for general diet with thin liquids (2) Diabetes type 2, controlled: Plan: Poorly controlled DM - last WekN6U=19.2 in 11/14/22 -A1c improved to 7.8 Resume metformin, continue as needed short acting insulin, continue diabetic diet (3) Hypothyroidism: Plan: Chronic. Elevated TSH at last check 11/14/22 =57.246. TSH this admission well controlled at 5.75 -Continue current dose of levothyroxine (4) Hypertension: Plan: Blood pressure mildly elevated, but mostly at goal, risks of tight control outweigh the benefits in this situation -Continue Spironolactone, HCTZ (5) H/O gastric ulcer: Plan: Chronic -Continue Pepcid 10mg po daily (6) COPD (chronic obstructive pulmonary disease): Plan: Chronic. Stable, not in exacerbation -Continue Trelegy, Fluticasone, Duoneb and Albuterol -[facility] Admission and Anticipated Discharge Date Admission Date: January 24, 2023 Subjective She is awake and laying in bed but does not seem oriented to situation, her main concern is correcting the blinds so that the sunlight is not in her eyes. She does not seem aware that her is hospitalized in the ICU. She has no physical complaints no chest pain cough shortness of breath fevers abdomen pain pain nausea vomiting dysuria. She states she has no children but "there have been a lot of problems going on with the elderly folks in the family" Physical Exam Physical Exam: PHYSICAL EXAMINATION Last 24h vital signs reviewed, see documentation in flowsheet General: comfortable appearing, no distress, lying flat on bed in street clothes HEENT: Normocephalic, atraumatic, pupils round and equal, sclerae anicteric, no conjunctival injection, moist mucus membranes Lungs: Normal respiratory effort. Clear to auscultation bilaterally. No RRW Heart: Regular rate and rhythm, no murmurs. No JVD Abdomen: Soft, nontender, nondistended. Bowel sounds present. Extremities: Warm, dry, well-perfused. No extremity edema. Neuro: Alert and oriented x self, not to hospital or to situation, makes tangential and inappropriate statements, face symmetric, moves 4 extremities well Psych: Normal affect and behavior Results & Data Results & Data Vital Signs (Past 12 Hours) Vital Signs Temp Pulse Resp BP Pulse Ox O2 Del Method 01/25/23 15:47 36.3 C L 70 16 159/85 H 98 Room Air 01/25/23 07:35 Room Air 01/25/23 08:20 36.6 C 61 16 157/79 H 96 Room Air PG Care Time/CCT Total # of Minutes Spent Total Time Spent with Patient: Total time spent is greater than 50% in coordination of care (as documented) at patient's floor/unit and/or counseling patient: Coding Level of Care Code 27554 SUB INP/OBS CARE 2/35MIN Diagnoses Dementia F03.90 Diabetes type 2, controlled E11.9 Hypothyroidism E03.9 Hypertension I10 H/O gastric ulcer Z87.19 COPD (chronic obstructive pulmonary disease) J44.9
[2023-01-25] MEDS: metFORMIN HCL ER 500 MG TABCR PO SCH (17:44)
[2023-01-25] MEDS ORDERED: INSULIN ASPART PER UNIT CHARGE SC SCH (18:00)
[2023-01-25] MEDS: MELATONIN 3 MG TAB PO PRN (19:42)
[2023-01-25] MEDS: RALOXIFENE HCL 60 MG TAB PO SCH (19:42)
[2023-01-25] MEDS: ATORVASTATIN 10 MG TAB PO SCH (19:43)
[2023-01-26] MEDS: LEVOTHYROXINE SODIUM 88 MCG TABLET PO SCH (05:27)
[2023-01-26] MEDS: FAMOTIDINE 10 MG TABLET PO SCH (07:47)
[2023-01-26] MEDS: metFORMIN HCL ER 500 MG TABCR PO SCH ×2 (07:47→17:29)
[2023-01-26] MEDS: hydroCHLOROthiazide 25 MG TAB PO SCH (07:48)
[2023-01-26] MEDS: SPIRONOLACTONE 25 MG TAB PO SCH (07:48)
[2023-01-26] MEDS: FLUTICASONE FUROATE 100MCG 14 PUFFS/INHALER INH SCH (07:49)
[2023-01-26] MEDS: MONTELUKAST SODIUM 10 MG TABLET PO SCH (07:49)
[2023-01-26] MEDS: UMECLIDINIUM/VILANTEROL 62.5/25MCG 7 PUFFS/INHALER INH SCH (07:49)
[2023-01-26] MEDS: INSULIN ASPART PER UNIT CHARGE SC SCH ×4 (08:34→20:37)
--- NOTE | 2023-01-26 17:46 | Hospitalist Progress Note ---
Date of Service January 26, 2023 Assessment & Plan (1) Dementia: Plan: 77yo female presenting from home due to inability to care for herself. She has significant dementia and is oriented only to self. She resides with her who is her primary caregiver. Unfortunately, her is admitted at this hospital and is critically ill. Her family contacted the Office of Aging due to concern for inability to care for her at home and was instructed to bring her to the ER. Referral has been made to [facility]. Requested further evaluation to ascertain if patient would be best served in the memory unit or group home facility. -PT/OT evaluation recommends SNF rehab stay -She had ST evaluation because she was said to have had swallowing difficulty, however, she did not present with any dysphagia and was cleared for general diet with thin liquids (2) Diabetes type 2, controlled: Plan: Poorly controlled DM - last IsbT3J=21.2 in 11/14/22 -A1c improved to 7.8 Resumed metformin, continue as needed short acting insulin, continue diabetic diet reviewed blood glucoses 01/26 and at goal (3) Hypothyroidism: Plan: Chronic. Elevated TSH at last check 11/14/22 =57.246. TSH this admission well controlled at 5.75 -Continue current dose of levothyroxine (4) Hypertension: Plan: -Continue Spironolactone, HCTZ -reviewed blood pressure 01/26 and mildly elevated however risks of tight BP control outweigh benefits in this situation. would set a goal of 160/85 or lower (5) H/O gastric ulcer: Plan: Chronic -Continue Pepcid 10mg po daily (6) COPD (chronic obstructive pulmonary disease): Plan: Chronic. Stable, not in exacerbation -Continue Trelegy, Fluticasone, Duoneb and Albuterol -Continue Singulair Admission and Anticipated Discharge Date Admission Date: January 26, 2023 Subjective she is only oriented to self, she is sitting by the window doing a word search puzzle, she does not appear to recognize me from yesterday, not in any distress Physical Exam Physical Exam: PHYSICAL EXAMINATION Last 24h vital signs reviewed, see documentation in flowsheet General: comfortable appearing, no distress, sitting by the window HEENT: Normocephalic, atraumatic, pupils round and equal, sclerae anicteric, no conjunctival injection, moist mucus membranes Lungs: Normal respiratory effort. Clear to auscultation bilaterally. No RRW Heart: Regular rate and rhythm, no murmurs. No JVD Abdomen: Soft, nontender, nondistended. Bowel sounds present. Extremities: Warm, dry, well-perfused. No extremity edema. Neuro: Alert and oriented x self, not to hospital or to situation, no agitation, pleasantly confused, face symmetric, moves 4 extremities well Psych: Normal affect and behavior Results & Data Results & Data Vital Signs (Past 12 Hours) Vital Signs Temp Pulse Resp BP Pulse Ox O2 Del Method 01/26/23 17:01 36.7 C 82 18 159/93 H 93 Room Air 01/26/23 08:39 Room Air 01/26/23 08:04 36.4 C L 85 14 133/80 98 Room Air PG Care Time/CCT Total # of Minutes Spent Total Time Spent with Patient: Total time spent is greater than 50% in coordination of care (as documented) at patient's floor/unit and/or counseling patient: Coding Level of Care Code 78705 SUB INP/OBS CARE 2/35MIN Diagnoses Dementia F03.90 Diabetes type 2, controlled E11.9 Hypothyroidism E03.9 Hypertension I10 H/O gastric ulcer Z87.19 COPD (chronic obstructive pulmonary disease) J44.9
[2023-01-26] MEDS: ATORVASTATIN 10 MG TAB PO SCH (20:36)
[2023-01-26] MEDS: RALOXIFENE HCL 60 MG TAB PO SCH (20:36)
[2023-01-26] MEDS: MELATONIN 3 MG TAB PO PRN (20:36)
[2023-01-27] MEDS: LEVOTHYROXINE SODIUM 88 MCG TABLET PO SCH (06:07)
[2023-01-27] MEDS: SPIRONOLACTONE 25 MG TAB PO SCH (08:41)
[2023-01-27] MEDS: FAMOTIDINE 10 MG TABLET PO SCH (08:42)
[2023-01-27] MEDS: UMECLIDINIUM/VILANTEROL 62.5/25MCG 7 PUFFS/INHALER INH SCH (08:42)
[2023-01-27] MEDS: metFORMIN HCL ER 500 MG TABCR PO SCH (08:42)
[2023-01-27] MEDS: hydroCHLOROthiazide 25 MG TAB PO SCH (08:42)
[2023-01-27] MEDS: FLUTICASONE FUROATE 100MCG 14 PUFFS/INHALER INH SCH (08:42)
[2023-01-27] MEDS: MONTELUKAST SODIUM 10 MG TABLET PO SCH (08:42)
--- NOTE | 2023-01-27 08:54 | Discharge Summary ---
Date of Service January 27, 2023 Admission HPI Per Admitting Provider Susie Gallardo is a 77yo female with history of DM, HTN, HLP, COPD and Dementia presenting for placement needs. Patient is with her niece and nephew and they assist with history. Patient presently lives in a home with her . She is ambulatory with a walker with assistance and requires some assistance with ADLs. Her acts as her primary caregiver at home. Unfortunately, patient's is presently admitted to [facility]. Patient's niece and nephew have brought her to the hospital because they are unable to care for her at home. Patient offers no acute complaints. She denies fever, chills, cough, CP, SOB. She eats well at home. No complaints of bowel or bladder problems. In the ER she is afebrile, HD stable with hypertension. NAD Principal Diagnosis deconditioning, dementia, inability to care for self Discharge Exam PHYSICAL EXAMINATION No change in exam since 01/26 Last 24h vital signs reviewed, see documentation in flowsheet General: comfortable appearing, no distress, sitting by the window again HEENT: Normocephalic, atraumatic, pupils round and equal, sclerae anicteric, no conjunctival injection, moist mucus membranes Lungs: Normal respiratory effort. Clear to auscultation bilaterally. No RRW Heart: Regular rate and rhythm, no murmurs. No JVD Abdomen: Soft, nontender, nondistended. Bowel sounds present. Extremities: Warm, dry, well-perfused. No extremity edema. Neuro: Alert and oriented x self, not to hospital or to situation, no agitation, pleasantly confused, face symmetric, moves 4 extremities well Psych: Normal affect and behavior Discharge Data Allergies Allergy/AdvReac Type Severity Reaction Status Date / Time Sulfa (Sulfonamide Allergy Severe "ALMOST Verified 11/14/22 10:25 Antibiotics) " levofloxacin [From Levaquin] AdvReac Intermediate UPSET Verified 11/14/22 10:25 STOMACH adhesive AdvReac Mild RASH ON Verified 11/14/22 10:25 SKIN/SKIN IRRITATION Consultations 01/24/23 19:30 ED Decision to Admit Stat Hospital Course (1) Dementia: 77yo female presenting from home due to inability to care for herself. She has significant dementia and is oriented only to self. She resides with her who is her primary caregiver. Unfortunately, her is admitted at this hospital and is critically ill. Her family contacted the Office of Aging due to concern for inability to care for her at home and was instructed to bring her to the ER. Referral has been made to [facility]. Requested further evaluation to ascertain if patient would be best served in the memory unit or snf facility. -PT/OT evaluation - completed - she is deconditioned and worse than her baseline physical status - therapists recommends SNF rehab stay -She had ST evaluation because she was said to have had swallowing difficulty, however, she did not present with any dysphagia and was cleared for general diet with thin liquids (2) Diabetes type 2, controlled: Poorly controlled DM - last HliC1J=66.2 in 11/14/22 -A1c improved to 7.8 Resumed metformin, continue diabetic diet reviewed blood glucoses 01/27 and at goal (3) Hypothyroidism: Chronic. Elevated TSH at last check 11/14/22 =57.246. TSH this admission well controlled at 5.75 -Continue current dose of levothyroxine (4) Hypertension: -Continue Spironolactone, HCTZ -reviewed blood pressure 01/27 and mildly elevated however risks of tight BP control outweigh benefits in this situation. would set a goal of 160/85 or lower (5) H/O gastric ulcer: Chronic, asymptomatic -Continue Pepcid 10mg po daily (6) COPD (chronic obstructive pulmonary disease): Chronic. Stable, not in exacerbation -Continue control inhaler, Duoneb and Albuterol PRN -Continue Singulair -has prescription for home O2 in past but unclear whether still using and had no hypoxia while in the hospital Total Time Total Time Spent Total Time Spent (In Minutes): 32 minutes spent coordinating care for discharge Discharge Plan Discharge Items Patient Disposition: Transfer Correction Fac Reason For Visit: PLACEMENT NEEDS Discharge Diagnosis: dementia, hypertension, diabetes type 2, COPD Condition on Discharge: Good Activity: Resume your previous activity Weightbearing: Full weightbearing Non-emergency contact: Primary Care Provider Call non-emergency contact if: you have any medication questions Follow-up/Referrals: Kolton Calix MD [Primary Care Provider] - Diet: Carb Consistent or DM2 Addtl Attending Provider Instructions: . Pending Studies at Discharge: No Stand-Alone Forms: My [employer] Skilled Items Patient informed of condition?: Yes DNR: No Discharge Level of Care: Skilled Communicable Disease: No Discharge Prognosis: Stable Lines: None Urinary Catheter: No Medications and DC Order Prescriptions: New acetaminophen 325 mg Tablet 650 mg PO Q4H PRN (Reason: fever or pain) Qty: 0 0RF polyethylene glycol 3350 [Miralax] 17 gram Powder In Packet 17 g PO DAILY PRN (Reason: constipation) Qty: 0 0RF Continued ipratropium-albuterol 0.5 mg-3 mg(2.5 mg base)/3 mL solution for nebulization 3 ml INH QID PRN (Reason: SHORT OF BREATH) Qty: 120 5RF spironolactone 25 mg tablet 25 mg PO QAM Qty: 90 3RF hydrochlorothiazide 25 mg tablet 25 mg PO QAM Qty: 90 3RF tramadol 50 mg tablet 50 mg PO QID PRN (Reason: pain) Qty: 360 0RF raloxifene [Evista] 60 mg tablet 60 mg PO QPM Qty: 90 3RF atorvastatin 10 mg tablet 10 mg PO HS Qty: 90 3RF levothyroxine 88 mcg tablet 88 mcg PO DAILY Qty: 90 3RF metformin 500 mg tablet extended release 24 hr 500 mg PO BID Qty: 180 1RF montelukast 10 mg tablet 10 mg PO QAM cyanocobalamin (vitamin B-12) 1,000 mcg capsule 1,000 mcg PO QAM cholecalciferol (vitamin D3) 1,000 unit capsule 1,000 units PO BID albuterol sulfate [Ventolin HFA] 90 mcg/actuation HFA aerosol inhaler 2 puff inhalation Q6H PRN (Reason: shortness of breath or wheezing) Qty: 8.5 4RF Trelegy Ellipta 100-62.5-25 mcg blister with device 1 inh inhalation DAILY Qty: 180 4RF famotidine 10 mg tablet 10 mg PO DAILY clotrimazole-betamethasone 1-0.05 % cream 1 applic topical BID PRN (Reason: Rash) Discontinued amoxicillin 500 mg capsule 500 mg PO UD PRN (Reason: BEFORE DENTAL PROCEDURE) Qty: 12 0RF (DME) Portable Oxygen Misc See Rx Instructions .MEDSUPPLY Qty: 1 0RF Rx Instructions: Oxygen 2 liters continuous via nasal cannula on exertion with portable concentrator. SHIVAM 99 Discharge Orders: Discharge Order (Routine); Ordered 01/27/23 Ordered By: Jaimee Buck Admission Data Admit Date/Time: 01/26/23 10:28 Attending Provider: Jaimee Buck Admit Provider: Peri Perales Primary Care Provider: Kolton Calix Other Providers: Peri Perales ; Melanie Daly at [facility] Other Interventions: Discharge Summary Assessment (RN) Last Done: 01/27/23 09:51 Coding Level of Care Code 76086 INP/OBS DISCH >30 MIN Diagnoses Dementia F03.90 Diabetes type 2, controlled E11.9 Hypothyroidism E03.9 Hypertension I10 H/O gastric ulcer Z87.19 COPD (chronic obstructive pulmonary disease) J44.9 CBC Results Results Complete Blood Count Results: RBC 4.45 M/uL (4.20-5.40) 01/24/23 WBC 9.16 K/ul (4.8-10.8) 01/24/23 Hgb 14.0 g/dl (12.0-16.0) 01/24/23 Hct 41.1 % (37.0-47.0) 01/24/23 Plt Count 362 K/uL (130-400) 01/24/23 Chemistry (BMP) Results BMP Results: Sodium 137 mmol/L (136-145) 01/24/23 Potassium 3.7 mmol/L (3.5-5.1) 01/24/23 Chloride 104 mmol/L (98-107) 01/24/23 Carbon Dioxide 26 mmol/L (21-32) 01/24/23 Anion Gap 7 (3-11) 01/24/23 BUN 17 mg/dl (6-23) 01/24/23 Creatinine 0.86 mg/dl (0.6-1.2) 01/24/23 Glucose 156 mg/dl (70-99(Fasting)) H 01/24/23
[2023-01-27] MEDS: INSULIN ASPART PER UNIT CHARGE SC SCH (09:15)
== END 2023-01-27 11:08 | DRG 884 ==
LOC: 3W 18:07 → ED 18:07 → SUATTDRO 20:37 → 3W 22:16 → 3N 01-25 18:38

== ENCOUNTER 2023-06-20 14:38 | Inpatient (IN) ==
--- NOTE | 2023-06-20 15:01 | Emergency Department Note ---
Impression & Plan Hypoxia, RSV (respiratory syncytial virus infection), SOB (shortness of breath), Leukocytosis, Wheezing, Abrasion of right knee, Hypomagnesemia, Elevated troponin ED Provider Note NAME: PASCUAL TREVIZO AGE: 78 SEX: F : 1945 ARRIVES VIA: Ambulance INFORMANT: [Patient][ems, nursing] ED PROVIDER(S): [Dhaval Donnelly MD] CHIEF COMPLAINT: Short of breath HISTORY OF PRESENT ILLNESS: The patient is a 78-year-old female who has been coughing and seemingly short of breath for a few days. Today, her O2 saturation was recorded in the low 80s. An order was placed for oxygen at her nursing center. The patient did have a ground-level fall. She by report suffered an abrasion to the right knee, no other injuries thought present. The patient was sent today because of the hypoxia and increasing dyspnea. By report, she seemed to be wheezing, she has been coughing. The patient is a very poor historian. She cannot really add anything to the story. PMHx/PSHx/Social Hx: See Below PHYSICAL EXAM: GENERAL: Patient is in no acute distress. HEENT: No acute trauma, normocephalic atraumatic, mucous membranes moist, no nasal congestion. NECK: No stridor, no adenopathy, no meningismus, trachea is midline. LUNGS: Dry cough noted, no obvious respiratory distress. There are wheezes bilaterally, no rhonchi. Breath sounds diminished bilaterally. HEART: Without murmurs gallops or rubs, regular rate and rhythm. ABDOMEN: Soft, nontender, no peritonitis. EXTREMITIES: No cyanosis. There is an abrasion to the right anterior knee. No evidence for right knee joint effusion. No pain to move the right knee joint. NEUROLOGIC: Awake and alert, poor historian, no acute motor or sensory deficits, no focal weakness. SKIN: No jaundice, no diaphoresis. DIFFERENTIAL DIAGNOSIS: Bronchitis or pneumonia, viral illness, CHF, cardiac ischemia, anemia, among others EMERGENCY DEPARTMENT PROCEDURES: MEDICAL DECISION MAKING: There is a moderate leukocytosis, this could be consistent with infection. There was a normal hemoglobin and platelet count. No coagulopathy. There was no renal failure. Magnesium was somewhat low. Lactic acid level was somewhat elevated, this could be consistent with infection. There was no concerning liver enzyme elevation. ECG shows a sinus rhythm, no obvious ST elevation. Cardiac enzyme testing x 1 was slightly elevated. This troponin elevation could be from cardiac ischemia or potentially just mismatch from her hypoxia. Respiratory bio fire was positive for RSV. Chest film showed a potential right lower lung infiltrate versus some atelectasis. On exam, the patient was wheezing. She was by report hypoxic. No obvious respiratory distress. The patient received IV Solu-Medrol, a DuoNeb, she was given IV ceftriaxone as empiric antibiotic therapy. She was given IV magnesium. She received a 500 cc saline bolus. The patient does seem to be slowly improving. I do think she requires a hospital stay. She likely has RSV as the initial cause for her dyspnea and cough. She may be developing a bacterial pneumonia based on x-ray and laboratory testing. Given the hypoxia, given her dyspnea, I do think a hospital stay is warranted. By report, the patient did not suffer a significant fall. She has an abrasion to the right knee on my exam. No signs for right lower extremity bony injury. I did speak with the patient and case management, the on-call hospitalist was consulted. Prior/Outside records/notes reviewed: Today's EMS notes describing her presentation and transport to this facility. ECG per my interpretation: Indication was shortness of breath. The ECG shows a normal sinus rhythm with a rate of 80. There are some ST depressions noted laterally. There is an old septal infarct. There is no acute ST elevation. No PVCs. The QTc is 429. Compared to an ECG from 26 November 2018, the lateral ST depressions are more pronounced. Continuous Cardiac Monitoring per my interpretation: An order was placed for continuous cardiac monitoring. The monitor shows a rate of 85 with normal sinus rhythm. Imaging/x-ray results per my interpretation: Chest x-ray shows some potential congestion in the right lower lung, pneumonia was thought possible. There was no pneumothorax or CHF. Chronic Medical/Social conditions affecting care: Advanced age. Care/Management discussed with: Case management, the on-call hospitalist. Level of care consideration(s): After review of the information above and other included data: --I believe the patient requires escalation of care to admission DISPOSITION: Admission Past Med/Surg History Medical History 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) Hearing deficit Teeth grinding wears mouth guard HS Hypothyroidism s/p radioactive iodine Skin cancer BCC (nasal, eyelid) Hyperlipidemia H/O gastric ulcer 3 years ago Hypertension Diabetes type 2, controlled NIDDM COPD (chronic obstructive pulmonary disease) stable; "severe" emphysema per 10/[address] Osteoarthritis Right upper lobe pulmonary nodule Surgical History Status post lobectomy of lung (12/04/18) Robotic Right Video Assisted Thoracoscopy with Right Upper Lobe Wedge Resection, Right Upper Lobectomy with Mediastinal Lymphadenectomy Dr. Parsons 12/04/18 Patient brought back to OR 12/26/2018 for air leak repair. Anesthesia record not available. History of colonoscopy History of tonsillectomy History of bronchoscopy History of carpal tunnel surgery (~04/2012) b/l + removal of b/l "thumb joints" H/O oral surgery GUM (2010), WISDOM/MOLAR TEETH EXTRACTIONS (2012) H/O total hip arthroplasty LEFT + LEFT FEMUR/REVISION H/O dilation and curettage History of bilateral tubal ligation (04/1982) H/O pilonidal cyst removed 1965 Family History Mother Diabetes Hypertension Grandmother Diabetes Father Heart disease Brother Heart disease Other Lung cancer Denies family history of Ovarian cancer Myocardial infarction Breast cancer Colorectal cancer Social History Smoking Status: Unknown if ever smoked Age Started Using Tobacco: 25; Age Quit Using Tobacco: 50; packs per day: 0.75; Second Hand Exposure: Yes (IN THE PAST); Do You Dip or Chew Tobacco: No; Hx Alcohol Use: No Hx Substance Use: No Preferred Language: Lao Communication Ability: Impaired Visual Impairment: No Limitations Hearing Ability: Use of Hearing Aid Senior Net Developer Required: No Beliefs That Will Affect Care: None marital status: Current Living Situation: Spouse Current Living Situation Comment: Lives with who is currently in the hospital current occupational status: retired 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 Feels Safe at Home: Yes Seatbelt Use: always Assistive Devices: None Allergies Allergies Allergy/AdvReac Type Severity Reaction Status Date / Time Sulfa (Sulfonamide Allergy Severe "ALMOST Verified 06/20/23 16:29 Antibiotics) " levofloxacin [From Levaquin] AdvReac Intermediate UPSET Verified 06/20/23 16:29 STOMACH adhesive AdvReac Mild RASH ON Verified 06/20/23 16:29 SKIN/SKIN IRRITATION Home Meds Home Medications Medication Instructions Recorded Confirmed cholecalciferol (vitamin D3) 25 1,000 units PO QAM 11/11/18 06/20/23 mcg (1,000 unit) capsule cyanocobalamin (vitamin B-12) 1,000 mcg PO QAM 11/11/18 06/20/23 1,000 mcg capsule clotrimazole-betamethasone 1 1 applic topical BID PRN Rash 09/30/20 06/20/23 %-0.05 % topical cream famotidine 10 mg tablet 10 mg PO DAILY 09/30/20 06/20/23 amoxicillin 500 mg tablet 500 mg PO DIRECTED PRN PRIOR TO 06/20/23 06/20/23 DENTAL APPT. amoxicillin 500 mg-potassium 1 tab PO TID 06/20/23 06/20/23 clavulanate 125 mg tablet (Augmentin) escitalopram oxalate 10 mg tablet 10 mg PO QAM 06/20/23 06/20/23 levothyroxine 100 mcg tablet 100 mcg PO DAILYBB 06/20/23 06/20/23 montelukast 10 mg tablet 10 mg PO QPM 06/20/23 06/20/23 prednisone 20 mg tablet 40 mg PO DAILY 06/20/23 06/20/23 raloxifene 60 mg tablet (Evista) 60 mg PO QAM 06/20/23 06/20/23 Previous Rx's Medication Instructions Recorded ipratropium 0.5 mg-albuterol 3 mg 3 ml inhalation QID PRN SHORT OF 05/14/19 (2.5 mg base)/3 mL nebulization BREATH #120 vials soln spironolactone 25 mg tablet 25 mg PO QAM #90 tabs 08/17/20 hydrochlorothiazide 25 mg tablet 25 mg PO QAM #90 tabs 01/10/21 albuterol sulfate 90 mcg/actuation 2 puff inhalation Q6H PRN 07/27/22 aerosol inhaler (Ventolin HFA) shortness of breath or wheezing #8.5 grams fluticasone fur. 100 mcg-umeclid 1 inh inhalation DAILY #180 ea 07/27/22 62.5 mcg-vilant 25 mcg inhalat.powder (Trelegy Ellipta) metformin 500 mg tablet,extended 500 mg PO BID #180 tabs 12/07/22 release 24 hr atorvastatin 10 mg tablet 10 mg PO HS #90 tabs 06/19/23 Results & Data (ED) Vital Signs Vital Signs - 24 hr 06/20/23 15:01 06/20/23 15:01 06/20/23 15:14 Temperature 36.5 C Temperature Source Oral Pulse Rate 79 78 Pulse Rate [Apical] Respiratory Rate 20 20 Respiratory Effort / Characteristics Non-Labored Blood Pressure 139/67 Blood Pressure [Right Arm] Blood Pressure Mean 91 Blood Pressure Mean [Right Arm] Pulse Oximetry 96 96 Oxygen Delivery Method Nasal Cannula Nasal Cannula Nasal Cannula Oxygen Flow Rate 2 2 2 Sepsis Recent Fever Within 48 Hours No Sepsis New/Unexplained Change in Mental Status No Sepsis Action Taken by Nursing No Action Required 06/20/23 15:14 06/20/23 15:29 06/20/23 17:00 Temperature Temperature Source Pulse Rate 91 H Pulse Rate [Apical] 79 89 Respiratory Rate 22 22 Respiratory Effort / Characteristics Blood Pressure Blood Pressure [Right Arm] 139/67 158/96 H Blood Pressure Mean Blood Pressure Mean [Right Arm] 91 116 Pulse Oximetry 98 95 Oxygen Delivery Method Nasal Cannula Nasal Cannula Oxygen Flow Rate 2 2 Sepsis Recent Fever Within 48 Hours Sepsis New/Unexplained Change in Mental Status Sepsis Action Taken by Usp Medications Current Medication List: was personally reviewed by me Laboratory Data Attestation: I reviewed the patient's lab results. 06/20/23 15:00 06/20/23 15:00 Lab Results 06/20/23 06/20/23 Range/Units 15:00 17:18 WBC 17.30 H (4.8-10.8) K/ul RBC 4.23 (4.20-5.40) M/uL Hgb 13.2 (12.0-16.0) g/dl Hct 40.3 (37.0-47.0) % MCV 95.3 (80.0-100.0) fL MCH 31.2 (25.0-34.0) pg MCHC 32.8 (32.0-36.0) g/dL RDW Std Deviation 45.1 (36.4-46.3) fL RDW Coeff of Dione 12.9 (11.5-14.5) % Plt Count 278 (130-400) K/uL MPV 9.5 (9.4-12.4) fL Immature Gran % (Auto) 2.1 % Neut % (Auto) 79.6 % Lymph % (Auto) 7.7 % Mobile % (Auto) 9.8 % Eos % (Auto) 0.2 % Baso % (Auto) 0.6 % Neut # (Auto) 13.77 H (1.40-6.50) K/uL Lymph # (Auto) 1.33 (1.20-3.40) K/uL Mobile # (Auto) 1.69 H (0.11-0.59) K/uL Eos # (Auto) 0.03 (0.00-0.50) K/uL Baso # (Auto) 0.11 (0.00-0.20) K/uL Immature Gran # (Auto) 0.37 H (0.01-0.20) K/uL PT 11.2 (9.0-12.0) Seconds INR 1.0 (0.9-1.1) APTT 26 (21-31) Seconds PTT Ratio 0.9 Sodium 137 (136-145) mmol/L Potassium 3.7 (3.5-5.1) mmol/L Chloride 100 (98-107) mmol/L Carbon Dioxide 27 (21-32) mmol/L Anion Gap 10 (3-11) BUN 21 (6-23) mg/dl Creatinine 1.03 (0.6-1.2) mg/dl Est Cr Clr Drug Dosing 44.8 ml/min Est GFR ( Amer) 60.3 ml/min Est GFR (Non-Af Amer) 52.0 ml/min BUN/Creatinine Ratio 20.4 H (10-20) Glucose 213 H (70-99(Fasting)) mg/dl Lactate 2.5 H* 2.0 (0.4-2.0) mmol/L Calcium 9.7 (8.6-10.3) mg/dl Magnesium 1.5 L (1.7-2.4) mg/dl Total Bilirubin 0.6 (0.2-1.0) mg/dl AST 12 L (13-39) U/L ALT 8 (7-52) U/L Alkaline Phosphatase 51 (34-104) U/L Troponin I High Sens 14.8 H (0-14) pg/ml Total Protein 7.4 (6.0-8.3) gm/dl Albumin 4.1 (3.4-5.0) gm/dl Globulin 3.3 (2.5-4.0) gm/dl Albumin/Globulin Ratio 1.2 (0.9-2) Adenovirus (PCR) Not Detected (NotDetected) B. pertussis DNA (PCR) Not Detected (NotDetected) B.parapertussis DNA PCR Not Detected (NotDetected) C. pneumoniae DNA (PCR) Not Detected (NotDetected) Coronavirus OC43 (PCR) Not Detected (NotDetected) Coronavirus HKU1 (PCR) Not Detected (NotDetected) Coronavirus 229E (PCR) Not Detected (NotDetected) SARS-CoV-2 (PCR) Not Detected (NotDetected) Coronavirus NL63 (PCR) Not Detected (NotDetected) Human Metapneumovir PCR Not Detected (NotDetected) Influenza Type A (PCR) Not Detected (NotDetected) Influenza Type B (PCR) Not Detected (NotDetected) M. pneumoniae (PCR) Not Detected (NotDetected) Parainfluenza 1 (PCR) Not Detected (NotDetected) Parainfluenza 2 (PCR) Not Detected (NotDetected) Parainfluenza 3 (PCR) Not Detected (NotDetected) Parainfluenza 4 (PCR) Not Detected (NotDetected) RSV (PCR) DETECTED A (NotDetected) Entero/Rhino (PCR) Not Detected (NotDetected) Administered Medications Magnesium Sulfate/Dextrose (Magnesium Sulfate / D5w) 1 gm in 100 mls @ 50 mls/hr IV Q2H VIKY Stop: 06/20/23 22:14 Last Admin: 06/20/23 18:11 Dose: 50 mls/hr Documented By: AEF Discontinued Medications Albuterol (Albut/Ipratrop 3mg/0.5mg Neb 3 Ml Vial) 3 ml NEB NOW STA; Protocol Stop: 06/20/23 14:53 Last Admin: 06/20/23 15:09 Dose: 3 ml Documented By: AEF Magnesium Sulfate/Dextrose (Magnesium Sulfate / D5w) 1 gm in 100 mls @ 100 mls/hr IV NOW STA Stop: 06/20/23 17:12 Last Infusion: 06/20/23 18:08 Dose: Infused Documented By: Admin: 06/20/23 17:07 Dose: 100 mls/hr Documented By: AEF Ceftriaxone Sodium (Rocephin) 2,000 mg in 50 mls @ 100 mls/hr IV NOW STA Stop: 06/20/23 16:42 Last Infusion: 06/20/23 17:08 Dose: Infused Documented By: Admin: 06/20/23 16:28 Dose: 100 mls/hr Documented By: AEF Sodium Chloride (Nss) 500 mls @ 999 mls/hr IV .Q31M ONE Stop: 06/20/23 16:55 Last Infusion: 06/20/23 17:08 Dose: Infused Documented By: Admin: 06/20/23 16:28 Dose: 999 mls/hr Documented By: AEF Methylprednisolone (Methylprednisolone 125 Mg/2 Ml Vial) 60 mg IV NOW STA Stop: 06/20/23 14:53 Last Admin: 06/20/23 15:10 Dose: 60 mg Documented By: AEF Imaging Data Radiologist's Impression: Chest X-Ray 06/20/23 14:52 XR chest 1V portable CLINICAL HISTORY: Dyspnea TECHNIQUE: Single frontal radiograph of the chest was obtained. Comparison: Comparison is made to chest radiograph 08/30/2021 FINDINGS: No lines and tubes are seen. Calcified aortic knob is seen. Reticular interstitial opacities are seen. Patient is status post right upper lobectomy and there is associated volume loss. No evidence of pleural effusion or pneumothorax. IMPRESSION: Postsurgical changes and interstitial thickening without air space opacities. ACT 112: Negative or not required by law. Electronically signed by: Zion Segura M.D. 06/20/2023 3:32 PM Discharge Plan Visit Data Chief Complaint: Shortness of Breath/Dyspnea Stated Complaint: SHORTNESS OF BREATH ED Provider: Dhaval Donnelly Discharge Problem: Hypoxia, RSV (respiratory syncytial virus infection), SOB (shortness of breath), Leukocytosis, Wheezing, Abrasion of right knee, Hypomagnesemia, Elevated troponin Patient Disposition: Admitted As Inpatient Condition: Fair Forms Stand Alone Forms: [facility] Prescriptions Prescriptions: No Action ipratropium-albuterol 0.5 mg-3 mg(2.5 mg base)/3 mL solution for nebulization 3 ml INH QID PRN (Reason: SHORT OF BREATH) Qty: 120 5RF spironolactone 25 mg tablet 25 mg PO QAM Qty: 90 3RF hydrochlorothiazide 25 mg tablet 25 mg PO QAM Qty: 90 3RF metformin 500 mg tablet extended release 24 hr 500 mg PO BID Qty: 180 1RF atorvastatin 10 mg tablet 10 mg PO HS Qty: 90 3RF cyanocobalamin (vitamin B-12) 1,000 mcg capsule 1,000 mcg PO QAM cholecalciferol (vitamin D3) 1,000 unit capsule 1,000 units PO QAM albuterol sulfate [Ventolin HFA] 90 mcg/actuation HFA aerosol inhaler 2 puff inhalation Q6H PRN (Reason: shortness of breath or wheezing) Qty: 8.5 4RF Trelegy Ellipta 100-62.5-25 mcg blister with device 1 inh inhalation DAILY Qty: 180 4RF famotidine 10 mg tablet 10 mg PO DAILY clotrimazole-betamethasone 1-0.05 % cream 1 applic topical BID PRN (Reason: Rash) prednisone 20 mg Tablet 40 mg PO DAILY Rx Instructions: STARTING 06/21/23 FOR 7 DAYS NOT STARTED YET amoxicillin 500 mg Tablet 500 mg PO DIRECTED PRN (Reason: PRIOR TO DENTAL APPT.) levothyroxine 100 mcg tablet 100 mcg PO DAILYBB amoxicillin-pot clavulanate [Augmentin] 500-125 mg Tablet 1 tab PO TID Rx Instructions: STARTING 06/21/23 WITH 1400 DOSE FOR 7 DAYS. NOT GIVEN YET PER MAR escitalopram oxalate 10 mg tablet 10 mg PO QAM raloxifene [Evista] 60 mg tablet 60 mg PO QAM montelukast 10 mg tablet 10 mg PO QPM Referrals Referrals: Kolton Calix MD [Primary Care Provider] - Discharge Problem: Leukocytosis Qualifiers: Leukocytosis type: unspecified Qualified Code(s): D72.829 - Elevated white blood cell count, unspecified Abrasion of right knee Qualifiers: Encounter type: initial encounter Qualified Code(s): S80.211A - Abrasion, right knee, initial encounter
[2023-06-20] MEDS: ALBUT/IPRATROP 3MG/0.5MG NEB 3 ML VIAL NEB STA (15:09)
[2023-06-20] MEDS: methylPREDNISolone 125 MG/2 ML VIAL IV STA (15:10)
--- NOTE | 2023-06-20 15:34 | XRay Report ---
XR chest 1V portable CLINICAL HISTORY: Dyspnea TECHNIQUE: Single frontal radiograph of the chest was obtained. Comparison: Comparison is made to chest radiograph 08/30/2021 FINDINGS: No lines and tubes are seen. Calcified aortic knob is seen. Reticular interstitial opacities are seen . Patient is status post right upper lobectomy and there is associated volume loss. No evidence of pl eural effusion or pneumothorax. IMPRESSION: Postsurgical changes and interstitial thickening without air space opacities. ACT 112: Negative or not required by law. Electronically signed by: Zion Segura M.D. 06/20/2023 3:32 PM
[2023-06-20 15:42] LABS: Basophils # (auto) 0.11 K/uL (0.00-0.20); Basophils % (auto) 0.6 %; Eosinophils # (auto) 0.03 K/uL (0.00-0.50); Eosinophils % (auto) 0.2 %; Hematocrit (blood only) 40.3 % (37.0-47.0); Hemoglobin 13.2 g/dl (12.0-16.0); Immature Granulocytes # (auto) 0.37 K/uL (0.01-0.20); Immature Granulocytes % (auto) 2.1 %; Lymphocytes # (auto) 1.33 K/uL (1.20-3.40); Lymphocytes % (auto) 7.7 %; Mean Corpuscular Hemoglobin 31.2 pg (25.0-34.0); Mean Corpuscular Hgb Conc 32.8 g/dL (32.0-36.0); Mean Corpuscular Volume 95.3 fL (80.0-100.0); Mean Platelet Volume 9.5 fL (9.4-12.4); Monocytes # (auto) 1.69 K/uL (0.11-0.59); Monocytes % (auto) 9.8 %; Neutrophils # (auto) 13.77 K/uL (1.40-6.50); Neutrophils % (auto) 79.6 %; Platelet Count 278 K/uL (130-400); RDW Coefficient of Variation 12.9 % (11.5-14.5); RDW Standard Deviation 45.1 fL (36.4-46.3); Red Blood Count 4.23 M/uL (4.20-5.40)
[2023-06-20 16:04] LABS: Partial Thromboplastin Ratio 0.9; Partial Thromboplastin Time 26 Seconds (21-31); Prothrombin Time 11.2 Seconds (9.0-12.0)
[2023-06-20 16:08] LABS: Albumin Level 4.1 gm/dl (3.4-5.0); Bilirubin,Total 0.6 mg/dl (0.2-1.0); Calcium 9.7 mg/dl (8.6-10.3); Magnesium 1.5 mg/dl (1.7-2.4); Potassium 3.7 mmol/L (3.5-5.1)
[2023-06-20 16:12] LABS: Adenovirus PCR Not Detected (NotDetected); Bordetella parapertussis PCR Not Detected (NotDetected); Bordetella pertussis PCR Not Detected (NotDetected); Chlamydia pneumoniae PCR Not Detected (NotDetected); Coronavirus 229E PCR Not Detected (NotDetected); Coronavirus CoV-2 (COVID19)PCR Not Detected (NotDetected); Coronavirus HKU1 PCR Not Detected (NotDetected); Coronavirus NL63 PCR Not Detected (NotDetected); Coronavirus OC43PCR Not Detected (NotDetected); Human Metapneumovirus PCR Not Detected (NotDetected); Influenza A PCR Not Detected (NotDetected); Influenza B PCR Not Detected (NotDetected); Mycoplasma pneumoniae PCR Not Detected (NotDetected); Parainfluenza Virus 1 PCR Not Detected (NotDetected); Parainfluenza Virus 2 PCR Not Detected (NotDetected); Parainfluenza Virus 3 PCR Not Detected (NotDetected); Parainfluenza Virus 4 PCR Not Detected (NotDetected); Respiratory Syncytial VirusPCR DETECTED (NotDetected); Rhinovirus/Enterovirus PCR Not Detected (NotDetected)
[2023-06-20 16:14] LABS: Albumin Globulin Ratio 1.2 (0.9-2); BUN Creatinine Ratio 20.4 (10-20); Creatinine Clr Calc Pharmacy 44.8 ml/min; Est GFR (African American) 60.3 ml/min; Globulin 3.3 gm/dl (2.5-4.0); Total Protein 7.4 gm/dl (6.0-8.3)
[2023-06-20 16:15] LABS: Troponin I High Sensitivity 14.8 pg/ml (0-14)
[2023-06-20] MEDS: cefTRIAXone SODIUM 2,000 MG/50 ML BAG IV STA (16:28)
[2023-06-20] MEDS: SODIUM CHLORIDE 0.9% 500 ML IV ONE (16:28)
--- NOTE | 2023-06-20 17:02 | History & Physical Report ---
Date of Service June 20, 2023 Assessment & Plan (1) RSV (respiratory syncytial virus infection): Plan: From [facility] Worsening SOB x 2-3 days with a witnessed ground-level fall on 06/19 Patient was reportedly lowered to the floor by a president celebrity acquistion, and struck her right knee; no head strike; per review of current meds, not on blood thinners as previously reported RSV + on arrival Droplet isolation precautions in place, with additional contact precautions due to prolonged shedding Fall precautions Leukocytosis to 17.30 with a neutrophil predominance; afebrile on arrival CXR with interstitial thickening but no airspace opacities Patient received Rocephin 2000 mg IV in the ED; will defer further antibiotics at this time MRSA swab ordered, pending DuoNeb 3 mL q6r Guaifenesin 60 mg p.o. BID Prednisone 40 mg daily Supplemental oxygen as needed to maintain SpO2 >89%; COPD Acetaminophen as needed for pain/fever PT/OT consulted A.m. CBC, BMP, mag, A1c (2) Dementia: Plan: Oriented to name and date of at baseline (3) COPD (chronic obstructive pulmonary disease): Plan: Continue Trelegy Ellipta, Singulair (4) Diabetes type 2, controlled: Plan: Last A1c at 7.8% on 01/25/2023; AM A1c Glucose 219 on admission Hold metformin Lantus 11 u BID while inpatient SSI; with target BSG range 110-140mg/dL, CF 35, carb ratio 12 T2DM diet BSG ACHS Adjust regimen as needed Pharmacy glycemic management consult given patient will be on prednisone 40 mg daily (5) Hypomagnesemia: Plan: Mag low at 1.5 Magnesium sulfate 3 g IV given in the ED A.m. mag (6) Lung cancer: Plan: Continue raloxifene (7) Hypertension: Plan: Continue hydrochlorothiazide, spironolactone (8) Hyperlipidemia: Plan: Continue atorvastatin (9) Hypothyroidism: Plan: Continue levothyroxine Plan Disposition: Admit to [facility] telemetry DNR/DNI T2DM diet VTE PPx: Lovenox 40 mg SQ q24h History of Present Illness Chief Complaint: SOB/dyspnea Primary Care Provider: Kolton Calix MD Mae is a 78-year-old female with PMH of lung cancer, COPD, T2DM, gastric ulcer, HTN, OA, and dementia. She presented from [facility] for worsening SOB at rest over several days. She was reportedly hypoxic at 50% on RA, and noted that she was feeling "rotten" and pointing to her chest and stomach. She also reportedly had a witnessed ground-level fall on 06/19; the president celebrity acquistion was present and helped lower her to the ground where she sustained an abrasion on her right knee. Patient uses a rollator walker at baseline. Triage/EMS note mentioned fall on blood thinners, however review of med rec does not currently have her on blood thinners. No head strike. Patient is a poor historian at baseline due to her underlying dementia (only oriented to name and ). Hypertensive at 158/96 at time of admission; SpO2 95% on 2 LNC. ED course: Rocephin 2000 mg IV Solu-Medrol 60 mg IV DuoNeb 3 mL NSS 500 mL IV Magnesium sulfate 1 g IV Unable to obtain ROS in patient's current state. Spoke to patient's POA/niece (Kristin) at the bedside, as well as brother (Bonifacio), and provided update regarding admission/RSV status. Confirmed that her code status was DNR/DNI. Allergies Allergy/AdvReac Type Severity Reaction Status Date / Time Sulfa (Sulfonamide Allergy Severe "ALMOST Verified 06/20/23 16:29 Antibiotics) " levofloxacin [From Levaquin] AdvReac Intermediate UPSET Verified 06/20/23 16:29 STOMACH adhesive AdvReac Mild RASH ON Verified 06/20/23 16:29 SKIN/SKIN IRRITATION Home Medications Medication Instructions Recorded Confirmed Type cholecalciferol (vitamin D3) 25 1,000 units PO QAM 11/11/18 06/20/23 History mcg (1,000 unit) capsule cyanocobalamin (vitamin B-12) 1,000 mcg PO QAM 11/11/18 06/20/23 History 1,000 mcg capsule ipratropium 0.5 mg-albuterol 3 mg 3 ml inhalation QID PRN SHORT OF 05/14/19 06/20/23 Rx (2.5 mg base)/3 mL nebulization BREATH #120 vials soln spironolactone 25 mg tablet 25 mg PO QAM #90 tabs 08/17/20 06/20/23 Rx clotrimazole-betamethasone 1 1 applic topical BID PRN Rash 09/30/20 06/20/23 History %-0.05 % topical cream famotidine 10 mg tablet 10 mg PO DAILY 09/30/20 06/20/23 History hydrochlorothiazide 25 mg tablet 25 mg PO QAM #90 tabs 01/10/21 06/20/23 Rx albuterol sulfate 90 mcg/actuation 2 puff inhalation Q6H PRN 07/27/22 06/20/23 Rx aerosol inhaler (Ventolin HFA) shortness of breath or wheezing #8.5 grams fluticasone fur. 100 mcg-umeclid 1 inh inhalation DAILY #180 ea 07/27/22 06/20/23 Rx 62.5 mcg-vilant 25 mcg inhalat.powder (Trelegy Ellipta) metformin 500 mg tablet,extended 500 mg PO BID #180 tabs 12/07/22 06/20/23 Rx release 24 hr atorvastatin 10 mg tablet 10 mg PO HS #90 tabs 06/19/23 06/20/23 Rx amoxicillin 500 mg tablet 500 mg PO DIRECTED PRN PRIOR TO 06/20/23 06/20/23 History DENTAL APPT. 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 Parsons 12/04/18 Patient brought back to OR 12/26/2018 for air leak repair. Anesthesia record not available. History of colonoscopy History of tonsillectomy History of bronchoscopy History of carpal tunnel surgery (~04/2012) b/l + removal of b/l "thumb joints" H/O oral surgery GUM (2010), WISDOM/MOLAR TEETH EXTRACTIONS (2012) H/O total hip arthroplasty LEFT + LEFT FEMUR/REVISION H/O dilation and curettage History of bilateral tubal ligation (04/1982) H/O pilonidal cyst removed 1965 Family History Mother Diabetes Hypertension Grandmother Diabetes Father Heart disease Brother Heart disease Other Lung cancer Denies family history of Ovarian cancer Myocardial infarction Breast cancer Colorectal cancer Social History Smoking Status: Unknown if ever smoked Age Started Using Tobacco: 25; Age Quit Using Tobacco: 50; packs per day: 0.75; Second Hand Exposure: Yes (IN THE PAST); Do You Dip or Chew Tobacco: No; Hx Alcohol Use: No Hx Substance Use: No Preferred Language: Tamaz[place] Communication Ability: Impaired Visual Impairment: No Limitations Hearing Ability: Use of Hearing Aid Brasswind Instrument Repairer Required: No Beliefs That Will Affect Care: None marital status: Current Living Situation: Spouse Current Living Situation Comment: Lives with who is currently in the hospital current occupational status: retired 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 Feels Safe at Home: Yes Seatbelt Use: always Assistive Devices: None Review of Systems Review of Systems: See HPI above Physical Exam Physical Exam: General: Acute respiratory distress; non-toxic appearing; frail; cooperative; SpO2 95% on 2L NC HEENT: normocephalic, atraumatic; no scleral icterus; PERRLA; moist mucus membrane; vision and hearing grossly intact Neck: supple; no lymphadenopathy; trachea midline Skin: warm, dry without signs of tenting; no cyanosis; no rashes or erythema noted; abrasion on right knee CV: chest wall NTP; RRR; S1/S2 normal; no murmurs/rubs/gallops; pulses intact and symmetric at radial, DP, and PT Lungs: acute respiratory distress; symmetrical chest wall expansion; crackles and wheezing across all lung [place] bilaterally ABD: Soft, NTP; BS present; no rebound/guarding; no ascites; no distention MSK: no tics or fasciculations; no edema noted in the LEs b/l, nonerythematous Neuro: A&Ox1 (oriented to name/, not oriented to location/month/purpose in the hospital); no facial droop; fluent speech; no focal deficits; unable to assess sensation Results & Data Results & Data Vital Signs (Past 12 Hours) Vital Signs Temp Pulse Pulse Resp BP BP Pulse Ox 06/20/23 15:29 91 H 06/20/23 15:14 79 22 139/67 98 06/20/23 15:14 06/20/23 15:01 78 20 96 06/20/23 15:01 36.5 C 79 20 139/67 96 O2 Del Method O2 Flow Rate 06/20/23 15:29 06/20/23 15:14 Nasal Cannula 2 06/20/23 15:14 Nasal Cannula 2 06/20/23 15:01 Nasal Cannula 2 06/20/23 15:01 Nasal Cannula 2 Laboratory Results Abnormal lab results 06/20/23 Range/Units 15:00 WBC 17.30 H (4.8-10.8) K/ul Neut # (Auto) 13.77 H (1.40-6.50) K/uL Wallace # (Auto) 1.69 H (0.11-0.59) K/uL Immature Gran # (Auto) 0.37 H (0.01-0.20) K/uL BUN/Creatinine Ratio 20.4 H (10-20) Glucose 213 H (70-99(Fasting)) mg/dl Lactate 2.5 H* (0.4-2.0) mmol/L Magnesium 1.5 L (1.7-2.4) mg/dl AST 12 L (13-39) U/L Troponin I High Sens 14.8 H (0-14) pg/ml RSV (PCR) DETECTED A (NotDetected) Diagnostic Findings Chest X-Ray 03/13/24 14:52 XR chest 1V portable CLINICAL HISTORY: Dyspnea TECHNIQUE: Single frontal radiograph of the chest was obtained. Comparison: Comparison is made to chest radiograph 08/30/2021 FINDINGS: No lines and tubes are seen. Calcified aortic knob is seen. Reticular interstitial opacities are seen. Patient is status post right upper lobectomy and there is associated volume loss. No evidence of pleural effusion or pneumothorax. IMPRESSION: Postsurgical changes and interstitial thickening without air space opacities. ACT 112: Negative or not required by law. Electronically signed by: Zion Segura M.D. 06/20/2023 3:32 PM Code Status & VTE Plan Code Status DNR/DNI VTE Prophylaxis Plan VTE Prophylaxis will be ordered: Yes Supervising Physician Co-Signing Physician Notes Patient seen and examined, chart reviewed, case discussed with Deon Wan and I agree with the assessment and plan as above except as otherwise noted Labs and images reviewed 70-year-old female with history of COPD, lung cancer, dementia, hypertension presents with worsening dyspnea on exertion, suspected demand ischemia, hypomagnesemia, leukocytosis, chest x-ray with no evidence of acute volume overload or lobar pneumonia. Patient was hypoxic in the ER, patient is recommended for admission for potential pneumonia versus COPD exacerbation. She is unable to give any meaningful history due to history of dementia. Patient had a fall to her knee this was witnessed and she was assisted to the ground by staff did not strike her head at any point. Agree with COPD treatment, pulmonary toilet, and secondary coverage for pneumonia with Rocephin and management as above. PG Care Time/CCT Total # of Minutes Spent Total Time Spent with Patient: Total time spent is greater than 50% in coordination of care (as documented) at patient's floor/unit and/or counseling patient: [place] [address] INT INP/OBS CARE 3/75MIN Patient Type Established History Comprehensive Exam Comprehensive Medical Decision Making High Complexity Diagnoses RSV (respiratory syncytial virus infection) B33.8 Dementia F03.90 COPD (chronic obstructive pulmonary disease) J44.9 Diabetes type 2, controlled E11.9 Hypomagnesemia E83.42 Lung cancer C34.90 Hypertension I10 Hyperlipidemia E78.5 Hypothyroidism E03.9
[2023-06-20] MEDS: MAGNESIUM SULFATE / D5W 1 GM/100 ML BAG IV STA (17:07)
[2023-06-20] MEDS: MAGNESIUM SULFATE / D5W 1 GM/100 ML BAG IV SCH (18:11)
[2023-06-20] MEDS ORDERED: GLUCOSE 40% GEL 15 GM TUBE PO PRN (21:57)
[2023-06-20] MEDS ORDERED: PHARMACY GLYCEMIC MGMT CONSULT PRN (21:57)
[2023-06-20] MEDS ORDERED: DEXTROSE 50% 50 ML SYRINGE IV PRN (21:57)
[2023-06-20] MEDS ORDERED: CARBOHYDRATES FOR HYPOGLYCEMIA PO PRN (21:57)
[2023-06-20] MEDS ORDERED: GLUCOSE 10 TAB/TUBE PO PRN (21:57)
[2023-06-20] MEDS ORDERED: GLUCAGON FOR INJ 1 MG VIAL SQ PRN (21:57)
[2023-06-20 22:29] LABS: Appearance Urine Clear (Clear); Bacteria Urine Automated Negative (Negative); Bilirubin Urine Negative (Negative); Blood Urine Negative (Negative); Cast Urine Automated 0 /lpf (0-5); Color Urine Yellow; Glucose Urine UA 3+ (Negative); Ketones Urine 1+ (Negative); Leukocyte Esterase Urine Trace (Negative); Nitrite Urine Positive (Negative); Protein Urine Negative (Negative); RBC Urine Automated 0-4 /hpf (0-4); Specific Gravity Urine 1.018 (1.000-1.030); Urobilinogen Urine Negative (Negative); pH Urine 5.5 (4.5-7.5)
[2023-06-20] MEDS: INSULIN ASPART PER UNIT CHARGE SC SCH (22:29)
[2023-06-20] MEDS: LANTUS PER UNIT CHARGE SQ SCH (22:29)
[2023-06-20] MEDS: ALBUT/IPRATROP 3MG/0.5MG NEB 3 ML VIAL INH SCH (22:39)
[2023-06-21] MEDS: ENOXAPARIN INJ 40 MG/0.4 ML SYR SQ SCH (01:09)
[2023-06-21] MEDS: guaiFENesin 600 MG TABCR PO SCH (01:11)
[2023-06-21] MEDS: MONTELUKAST SODIUM 10 MG TABLET PO SCH (01:12)
[2023-06-21] MEDS: ATORVASTATIN 10 MG TAB PO SCH (01:12)
[2023-06-21 04:08] LABS: Basophils # (auto) 0.03 K/uL (0.00-0.20); Basophils % (auto) 0.2 %; Hematocrit (blood only) 37.7 % (37.0-47.0); Hemoglobin 12.9 g/dl (12.0-16.0); Immature Granulocytes # (auto) 0.12 K/uL (0.01-0.20); Immature Granulocytes % (auto) 0.8 %; Lymphocytes # (auto) 1.01 K/uL (1.20-3.40); Lymphocytes % (auto) 7.1 %; Mean Corpuscular Hemoglobin 31.9 pg (25.0-34.0); Mean Corpuscular Hgb Conc 34.2 g/dL (32.0-36.0); Mean Corpuscular Volume 93.1 fL (80.0-100.0); Mean Platelet Volume 9.4 fL (9.4-12.4); Monocytes # (auto) 0.92 K/uL (0.11-0.59); Monocytes % (auto) 6.4 %; Neutrophils # (auto) 12.22 K/uL (1.40-6.50); Neutrophils % (auto) 85.5 %; Platelet Count 237 K/uL (130-400); RDW Coefficient of Variation 12.7 % (11.5-14.5); RDW Standard Deviation 43.7 fL (36.4-46.3); Red Blood Count 4.05 M/uL (4.20-5.40)
[2023-06-21 04:18] LABS: Calcium 9.1 mg/dl (8.6-10.3); Magnesium 2.4 mg/dl (1.7-2.4); Potassium 3.9 mmol/L (3.5-5.1)
[2023-06-21 04:24] LABS: BUN Creatinine Ratio 22.9 (10-20); Creatinine Clr Calc Pharmacy 55.6 ml/min; Est GFR (African American) 78.3 ml/min; Est GFR (Non-African American) 67.5 ml/min
[2023-06-21 06:43] LABS: Estimated Average Glucose 166 mg/dl; Hemoglobin A1C 7.4 % (4.5-5.6)
[2023-06-21] MEDS: UMECLIDINIUM/VILANTEROL 62.5/25MCG 7 PUFFS/INHALER INH SCH (08:07)
[2023-06-21] MEDS: FLUTICASONE FUROATE 100MCG 14 PUFFS/INHALER INH SCH (08:08)
[2023-06-21] MEDS: FAMOTIDINE 10 MG TABLET PO SCH (08:09)
[2023-06-21] MEDS: hydroCHLOROthiazide 25 MG TAB PO SCH (08:09)
[2023-06-21] MEDS: LEVOTHYROXINE SODIUM 100 MCG TABLET PO SCH (08:09)
[2023-06-21] MEDS: ESCITALOPRAM OXALATE 10 MG TAB PO SCH (08:09)
[2023-06-21] MEDS: predniSONE 20 MG TAB PO SCH (08:09)
[2023-06-21] MEDS: SPIRONOLACTONE 25 MG TAB PO SCH (08:10)
[2023-06-21] MEDS: RALOXIFENE HCL 60 MG TAB PO SCH (08:10)
[2023-06-21] MEDS ORDERED: NON-FORMULARY MEDICATION (Fluticasone-Umeclidin-Vilanter [Trelegy Ellipta] 100-62.5-25 mcg INH SCH (09:00)
--- NOTE | 2023-06-21 09:06 | Pharmacy Report ---
Pharmacy Glycemic Short Note 2 - Date of Service June 21, 2023 - Glycemic Short BSG Results (Last 24 hours): 06/20/23 06/20/23 06/21/23 15:00 22:22 03:37 Glucose 213 H 248 H POC Glucose 313 H* 06/21/23 07:46 Glucose POC Glucose 181 H OUTPATIENT ANTIDIABETIC REGIMEN: * metformin 500mg PO BID HbA1C: 7.4% ASSESSMENT: * Pt is a 78 year old female with a history of DM2 on metformin at home. Pharmacy consulted to assist with inpatient glycemic management. * BSGs [phone]/dL since admission. Received 11 units of basal and 5 units of bolus insulin last night. * Receiving prednisone 40mg PO daily, diet ordered. * Will continue with Lantus 10 units daily while on steroids. Agree with Novolog moderate stress scale for now. PLAN FOR INPATIENT GLYCEMIC CONTROL: * Hold outpatient oral diabetes medications * Basal insulin * Lantus 10 units SQ daily * Bolus insulin * NovoLog per scale ACHS or Q6hrs while NPO * Goal Range: Low 110 mg/dL - High 140 mg/dL * Correction Factor: 30mg/dL/unit * Nutritional / Prandial insulin per carb ratio of 1 unit per 10 grams CHO consumed
[2023-06-21] MEDS: LANTUS PER UNIT CHARGE SQ SCH (09:32)
--- NOTE | 2023-06-21 15:26 | Hospitalist Progress Note ---
Date of Service June 21, 2023 Assessment & Plan (1) RSV (respiratory syncytial virus infection): Plan: -From [facility] -Worsening SOB x 2-3 days with a witnessed ground-level fall on 06/19 -Patient was reportedly lowered to the floor by a co founder and president, and struck her right knee; no head strike; per review of current meds, not on blood thinners as previously reported -RSV + on arrival -Leukocytosis to 17.30 with a neutrophil predominance -- improving -CXR with interstitial thickening but no airspace opacities -Patient received Rocephin 2000 mg IV in the ED; will defer further antibiotics at this time -MRSA swab -- negative -Blood culturespending -Continue raloxifene for lung cancer -Continue Trelegy Ellipta, Singulair for COPD -DuoNeb 3 mL q6r -Guaifenesin 60 mg p.o. BID -Prednisone 40 mg daily -Supplemental oxygen as needed to maintain SpO2 >89%; -Acetaminophen as needed for pain/fever (2) Diabetes type 2, controlled: Plan: - Glucose 219 on admission - A1c 7.4% on 06/21/2023 - Hold metformin - Lantus 11 u BID while inpatient - SSI; with target BSG range 110-140mg/dL, CF 35, carb ratio 12 -- adjust regimen as needed - Pharmacy glycemic management consult given patient is on prednisone 40 mg daily (3) Hypomagnesemia: Plan: - Mag low at 1.5 on admission - Magnesium sulfate 3 g IV given in the ED - Mag 2.4 on 06/21/2023 Plan CODE STATUS: DNR/DNI VTE PPx: Lovenox 40 mg SQ q24h Admission and Anticipated Discharge Date Admission Date: June 20, 2023 Subjective Patient seen and evaluated at bedside in ED. She is a poor historian at baseline due to her underlying dementia. However, she does not have any complaints at this time. Oxygen saturation remains stable on 2 L supplemental O2. She denies shortness of breath, chest pain, weakness, lightheadedness, dizziness, abdominal pain, or urinary symptoms. Physical Exam Physical Exam: General: No acute distress, nondiaphoretic, well-developed, well-nourished. Skin: The skin was without rashes, erythema, edema. Abrasion on right knee. Cardiac: Regular rate and rhythm without murmurs gallops or rubs. Pulm: Coarse breath sounds across all lung [place] bilaterally. Inspiratory wheezing and expiratory crackles. No acute respiratory distress. No retractions or accessory muscle use. 92% on 2 L via nasal cannula. Abdominal: Positive bowel sounds x 4. Soft, nontender, without masses or organomegaly. No guarding or rebound tenderness. Neuro: Alert and oriented to name and date of birththis is patient's baseline. No focal neurological deficits. Results & Data Results & Data Vital Signs (Past 12 Hours) Vital Signs Temp Pulse Pulse Resp BP Pulse Ox Pulse Ox 06/21/23 14:50 36.5 C 86 20 125/55 L 99 06/21/23 13:09 97 H 18 140/74 94 06/21/23 12:27 74 20 91 06/21/23 08:04 06/21/23 07:58 68 18 120/63 94 06/21/23 07:23 58 L 06/21/23 06:57 58 L 22 100 06/21/23 06:00 56 L 18 139/68 98 06/21/23 06:00 99 O2 Del Method O2 Del Method O2 Flow Rate O2 Flow Rate 06/21/23 14:50 Nasal Cannula 2 06/21/23 13:09 Nasal Cannula 2 06/21/23 12:27 Room Air 06/21/23 08:04 Nasal Cannula 2 06/21/23 07:58 Nasal Cannula 06/21/23 07:23 06/21/23 06:57 Nasal Cannula 2 06/21/23 06:00 Nasal Cannula 2 06/21/23 06:00 Nasal Cannula 2 Laboratory Results Reviewed CBC Reviewed BMP Reviewed UA Blood culturespending PG Care Time/CCT Total # of Minutes Spent Total Time Spent with Patient: Total time spent is greater than 50% in coordination of care (as documented) at patient's floor/unit and/or counseling patient: Coding Level of Care Code 59230 SUB INP/OBS CARE 2/35MIN Diagnoses RSV (respiratory syncytial virus infection) B33.8 Diabetes type 2, controlled E11.9 Hypomagnesemia E83.42
--- OUTSIDE RECORDS SUMMARY | 2023-06-21 16:02 | External Medical Summary | Summary of Care ---
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) Procedures PET CT SKULL BASE TO MID-THIGH FDG Kermit Estrada MD 200 [facility] [place] [id number] Referral ID Status Reason Start Date Expiration Date V isits Requested Visits Authorized [id number] Pending Review 06/14/2023 999 999 Reason for Visit * Reason Comments Chemotherapy Chemo/recheck Encounter Details Date Type Department Care Team (Late st Contact Info) Description 06/14/2023 8:45 AM EST Office Visit Hematology/Oncology [place] [facility] Johnson [address] [place] [address] Kermit Estrada MD 200 [facility] [place] [address] Malignant neoplasm of upper lobe of right lung (HCC)*; 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 0 Active atorvaSTATin (LIPITOR) 10 MG Tablet Take 1 Tablet by mouth in the morning. 0 Active Calcium Carbonate 500 MG CHEW Take by mouth. 0 Active Cholecalciferol (VITAMIN D-3) 1000 units Capsule Take 1 Capsule by mouth in the morning. 0 Active Cyanocobalamin (VITAMIN B-12) 1000 MCG Tablet Take 1 Tablet by mouth in the morning. 0 Active fluticasone Furoate (ARNUITY ELLIPTA) 200 MCG/ACT AEPB inhaler Inhale 1 Puff by mouth. 0 Active hydroCHLOROthiazide (HYDRODIURIL) 25 MG Tablet Take 1 Tablet by mouth in the morning. 0 Active albuterol-ipratropiu m (DUONEB) 2.5-0.5 MG/3ML nebulizer solution Inhale 3 mL by mouth every 6 hours as needed. 0 Active MetFORMIN (GLUCOPHAGE) 1000 MG Tablet Take 0.5 Tablets by mouth 2 times a day with morning and evening meals. 0 Active montelukast (SINGULAIR) 10 MG Tablet Take 1 Tablet by mouth at bedtime. 0 Active oxygen GAS Use as directed. 0 Active raloxifene (EVISTA) 60 MG Tablet Take 1 Tablet by mouth in the morning. 0 Active raNITIdine HCl 150 MG Oral Tablet Take 1 Tablet by mouth in the morning and 1 Tablet before bedtime. 0 Active spironolactone (ALDACTONE) 25 MG Tablet Take 1 Tablet by mouth in the morning. 0 Active famotidine (PEPCID) 40 MG Tablet Take 1 Tablet by mouth in the morning. 0 Active Clotrimazole-Betamet hasone 1-0.05 % External Lotion Apply topically to affected area . 0 Active traMADol HCl 50 MG Oral Tablet (Ultram) every 12 hours . 0 Active Ventolin HFA 108 (90 Base) MCG/ACT Inhalation Aerosol Solution 0 Active Trelegy Ellipta 100-62.5-25 MCG/INH Aerosol Powder Breath Activated 0 11/14/2021 Active Levothyroxine Sodium 100 MCG Oral Tablet (Levoxyl)Indications :Hypothyroidism due to medication Take 1 Tablet by mouth daily first thing in the morning. (at least 30 min prior to breakfast or other meds) 90 Tablet 0 04/05/2023 Active documented as of this encounter (statuses as of 06/14/2023) Active Problems Problem Noted Date Diagnosed Date Malignant neoplasm metastatic to right adrenal g land 02/14/2023 History of lung cancer 10/02/2019 Malignant neoplasm of upper lobe of right lung 1 Cancer Staging:Clinical: Unsigned Pathologic stage from 01/09/2019:Stage IIIA(pT2a, pN2, cM0) - Signed by Kermit Estrada MD on 01/09/2019 documented as of this encounter (statuses as of 06/14/2023) Immunizations Name Administration Dates Next Due COVID-19 mRNA, LNP-s, No Pre serve, 2-Dose Series (Moderna) 05/20/2020,04/22/2020 documented as of this encounter Social History Tobacco Use Types Packs/Day Years Used Date Smoking Tobacco: Never Smokeless Tobacco: Never Tobacco Cessation:Counseling Given: Not Answered Alcohol Use Standard Drinks/Week Comments Never 0 (1 standard drink = 0.6 oz pur e alcohol) AUDIT-C Answer Date Recorded Q1: How often do you have a drink containing alc ohol? Never 08/10/2020 Q2: How many drinks containi ng alcohol do you have on a typical day when you are drinking? Not asked 08/10/2020 Q3: How often do you have six or more drinks on one occasion? Never 08/10/2020 Sex and Gender Information Value Date Recorded Sex Assigned at Not on file Gender Identity Not on file Sexual Orientation Not on file Job Start Date Occupation Industry Not on file Not on file Not on file documented as of this encounter Last Filed Vital Signs Vital Sign Reading Time Taken Comments Blood Pressure 94/60 06/14/2023 8:30 AM EST Pulse 78 06/14/2023 8:30 AM EST Temperature 36.4 C (97.5 F) 06/14/2023 8:30 AM ES T Respiratory Rate 16 06/14/2023 8:30 AM EST Oxygen Saturation - - Inhaled Oxygen Concentration - - Weight 57.2 kg (126 lb) 06/14/2023 8:30 AM EST Height - - Body Mass Index 20.97 01/15/2023 9:47 AM EDT documented in this encounter Progress Notes * Kermit Estrada MD - 06/14/2023 8:45 AM EST Hematology/Oncology Outpatient Clinic note [facility] Pham [address] [place] [address] Name: Susie Gallardo Date: 05/15/2023 CHIEF COMPLAINT: Susie Gallardo is a 78 year old female here today for f/u visit today. HEMATOLOGY/ONCOLOGY DIAGNOSIS: Right upper lobe adenocarcinoma -2.5 cm primary tumor, visceral pleural involvement noted, 05/28 lymph node positive for metastatic disease involving the R 4 lymph lou region. -tumor mutation burden high. -PD-L1 expression 1%. - BRAF and KRAS positive. Right adrenal gland soft tissue mass noted in the imaging studies done in October 2022. Biopsy from the right adrenal gland mass (01/15/2023) - Metastatic poorly differentiated carcinoma, favoring known non-small cell lung cancer metastasis. - PD-L1 --> Less than 1% - NGS checkup: TMB 29.9 which is high, MSI stable. - A BRAF class III missense mutation [id number] was identified - KRAS missense variant [id number] was detected overall no actionable mutation noted other than TMB is high. Cancer Staging Malignant neoplasm of upper lobe of right lung (HCC) Staging form: Lung, AJCC 8th Edition - Clinical: No stage assigned - Unsigned - Pathologic stage from 01/09/2019: Stage IIIA (pT2a, pN2, cM0) - Signed by Kermit Estrada MD on 01/09/2019 DATE OF DIAGNOSIS: 12/04/18 TREATMENT HISTORY: S/P right upper lobectomy in last week of November 2018. -she completed adjuvant chemotherapy while she was in [place]. CURRENT TREATMENT: Observation since June 2019 Now on Keytruda 200 mg every 21 days until disease progression (02/20/23 - ) 06/14/2023 --> change Keytruda to 400 mg every 6 weekly. DIAGNOSTIC WORKUP: She has underlying emphysema, discontinue smoking habit several years back, had some changes noted in lung earlier in March 2018, follow-up imaging study in further diagnostic workup as follows: CT chest (10/17/2018) 1. Mild increase in size of an irregular 1.9 cm subpleural opacity within the right upper lobe. This is suspicious for a bronchogenic carcinoma. Scar could appear similar although is considered less likely. 2. No change in an indeterminate 2.1 x 0.7 cm perifissural opacity within the right upper lobe. 3. No thoracic lymphadenopathy. 4. Severe emphysema. PET-CT scan (10/30/2018) 1. 1.9 cm subpleural irregular nodule of the right upper lobe demonstrates hypermetabolic activity most compatible with primary bronchogenic carcinoma. 2. Perifissural 2.1 cm opacity about the right upper lobe demonstrates no appreciable metabolic uptake suggestive of fibrotic scarring. 3. No hypermetabolic adenopathy. 4. Severe emphysema. She underwent right upper with resection followed by lobectomy and mediastinal lymph node dissection by Dr. Parsons on 12/04/2018: Final pathology: -invasive adenocarcinoma, involving the right upper lobe, measuring 2.5 x 1.5 x 1.5 cm, -visceral pleural involvement noted. No lymphovascular invasion noted -negative margin. -05/28 lymph nodes positive for metastatic disease involving the R 4 -pathological T2a N2. Results Summary / Diagnostic & Prognostic Implications - NEXT GENERATION SEQUENCING (NGS): Pathogenic mutations are detected in the following genes: BRAF and KRAS. - Variants of unknown clinical significance are detected in the following genes: PDGFRA and NOTCH1.Given the high tumor mutation burden (see below), it is possible that these variants are passenger mutations caused by the underlying genomic instability. - No mutations are detected in the remaining genes on the NGS panel. - TUMOR MUTATION BURDEN (TMB): 10.4, VERY HIGH (above upper quartile). Recent clinical trials data have demonstrated that TMB independently predicts responsiveness to anti-PD-1 or anti-PD-L1 therapy across diverse cancer types. - FLUORESCENCE IN SITU HYBRIDIZATION (FISH): Positive for PTEN deletion. PTEN abnormalities may be associated with resistance to EGFR mAb inhibitors, but may respond to PI3K/AKT/mTOR and PARP inhibitors. No pathogenic chromosomal abnormalities are detected in any of the other FISH probes in this panel. - PD-L1 22C3 by IHC: PD-L1 is expressed (Tumor Proportion Score >/=1%). The expression of PD-L1 suggests response to immunotherapy with anti-PD-1 or anti-PD-L1. - Murphy-TRK by IHC: Negative. - ADDITIONAL MOLECULAR STUDIES: MET Exon 14 deletion by PCR is not detected. PDL-1 IMMUNOSTAINING TEST RESULTS: PD-L1 22C3 FDA (KEYTRUDA) for NSCLC: EXPRESSED Tumor Proportion Score: 1% Intensity: 2+ OTHER IMPORTANT HISTORY: - she has oxygen on p.r.n. basis, 2 liters/minute. - she has mild dementia, currently she is in the [facility]. Interval History: She had another CT chest in October 2022, now reported to have about 5.7 cm right adrenal gland mass which is suspicious she would a PET-CT scan followed by biopsy from the right adrenal gland which confirmed metastatic lung cancer. Reviewed with her mainly her family members regarding the recurrent disease now involving the right adrenal gland and upper abdominal lymph nodes, no actionable mutationnoted other than TMB is on higher side and the she may derive benefit from immunotherapy Discussed with them regarding the role of immunotherapy with Keytruda that can be considered every 3 weekly. She has mild underlying dementia and the she is not a good candidate for systemic chemotherapy and family members are in agreement for that. HISTORY OF PRESENT ILLNESS: She has come the clinic for the follow-up, accompanied by brother and niece in the office, she [facility] [facility] in [place]. Currently she is at [facility]. Overall she is doing well, no nausea no vomiting, no new cardiac or pulmonary symptoms, no back pain or bone pain, no increasing headache, current weight around 126 lb. Not on oxygen treatment. Good appetite. No bleeding from the sites. No focal neurological symptoms. She is having physical therapyadjuvant privilege. No past medical history on file. Past Surgical History: Procedure Laterality Date IR BIOPSY 01/15/2023 Social History Socioeconomic History Marital status: Spouse name: Not on file Number of children: Not on file Years of education: Not on file Highest education level: Not on file Occupational History Not on file Tobacco Use Smoking status: Never Smokeless tobacco: Never Substance and Sexual Activity Alcohol use: Never Drug use: Never Sexual activity: Not on file Other Topics Concern Not on file Social History Narrative Not on file Social Determinants of Health Financial Resource Strain: Not on file Food Insecurity: Not on file Transportation Needs: Not on file Physical Activity: Not on file Stress: Not on file Social Connections: Not on file Intimate Partner Violence: Not on file Housing Stability: Not on file Review of patient's allergies indicates: Allergen Reactions Levofloxacin Nausea/vomiting Doxycycline Nausea/vomiting Hydrocodone Nausea/vomiting Sulfa Antibiotics Current Outpatient Medications Medication Sig Dispense Refill amoxicillin (AMOXIL) 500 MG Capsule Take 500 mg by mouth 3 times a day. (Patient not taking: Reported on 02/20/2023) atorvaSTATin (LIPITOR) 10 MG Tablet Take 1 Tablet by mouth in the morning. Calcium Carbonate 500 MG CHEW Take by mouth. (Patient not taking: Reported on 05/15/2023) Cholecalciferol (VITAMIN D-3) 1000 units Capsule Take 1 Capsule by mouth in the morning. Cyanocobalamin (VITAMIN B-12) 1000 MCG Tablet Take 1 Tablet by mouth in the morning. fluticasone Furoate (ARNUITY ELLIPTA) 200 MCG/ACT AEPB inhaler Inhale 1 Puff by mouth. hydroCHLOROthiazide (HYDRODIURIL) 25 MG Tablet Take 1 Tablet by mouth in the morning. albuterol-ipratropium (DUONEB) 2.5-0.5 MG/3ML nebulizer solution Inhale 3 mL by mouth every 6 hoursas needed. MetFORMIN (GLUCOPHAGE) 1000 MG Tablet Take 0.5 Tablets by mouth 2 times a day with morning and evening meals. (Patient not taking: Reported on 02/20/2023) montelukast (SINGULAIR) 10 MG Tablet Take 1 Tablet by mouth at bedtime. oxygen GAS Use as directed. raloxifene (EVISTA) 60 MG Tablet Take 1 Tablet by mouth in the morning. raNITIdine HCl 150 MG Oral Tablet Take 1 Tablet by mouth in the morning and 1 Tablet before bedtime. (Patient not taking: Reported on 05/15/2023) spironolactone (ALDACTONE) 25 MG Tablet Take 1 Tablet by mouth in the morning. famotidine (PEPCID) 40 MG Tablet Take 1 Tablet by mouth in the morning. Clotrimazole-Betamethasone 1-0.05 % External Lotion Apply topically to affected area . (Patient nottaking: Reported on 02/20/2023) traMADol HCl 50 MG Oral Tablet (Ultram) every 12 hours . (Patient not taking: Reported on 02/20/2023) Ventolin HFA 108 (90 Base) MCG/ACT Inhalation Aerosol Solution Trelegy Ellipta 100-62.5-25 MCG/INH Aerosol Powder Breath Activated Levothyroxine Sodium 100 MCG Oral Tablet (Levoxyl) Take 1 Tablet by mouth daily first thing in the morning. (at least 30 min prior to breakfast or other meds) 90 Tablet 0 No current facility-administered medications for this visit. REVIEW OF SYSTEMS: See HPI - otherwise negative OBJECTIVE: BP 94/60 (BP Site: Left Arm, BP Position: Sitting, BP Cuff Size: Regular) | Pulse 78 | Temp 36.4 C (97.5 F) (Tympanic) | Resp 16 | Wt 57.2 kg (126 lb) | BMI 20.97 kg/m | BSA 1.62 m PHYSICAL EXAM: ECOG: Performance Status 2-3 General Appearance: No acute distress Lungs/Thorax: Normal - Clear to auscultation Heart: Normal - Regular rate and rhythm, normal S1, S2, no appreciable murmurs Pulses/Extremities: Normal - 2+ throughout and symmetrical, no edema Neurologic: +pleasantly confused, in wheelchair today LABS: Blood workup done on 06/13/2023: - WBC 7500, H&H of 11.9/35, platelet count of 304,000. - BUN/Creat: 22/0.9, calcium 9.5 - TSH --> 2.49. - normal liver function test. PET-CT scan done on 06/06/2023 at [facility]. - No evidence of FDG avid metastatic disease - Previously noted right adrenal gland metastasis has resolved. - Previously noted aortocaval lymph node metastases significantly decreased in the size and it is not FDG avid. - Loculated pleural fluid at the right apex unchanged - Advanced emphysematous changes. IMPRESSION/PLAN: Right upper lobe adenocarcinoma metastatic to adrenal gland and upper abdominal lymph nodes. Encounter for immunotherapy Drug induced hypothyroidism Patient feeling clinically well today and physical exam is unremarkable Lab results reviewed: Unremarkable , normal LFT. TSH normal. Continue levothyroxine 100 mcg daily Reviewed with them regarding the recent follow-up PET-CT scan which shows very good response, no FDG avid disease noted anywhere else. She has tolerated Keytruda without significant immune mediated side effects As she has done well, would like to change Keytruda to 400 mg every 6 weekly. I am planning for follow-up PET-CT scan in about 4 months and then will see her back in the clinic. Dr. Kermit Estrada Hem/Onc (This note was completed using the dictation program Fluency Direct. As such, there may be misspellings word substitutions, or other variations that should not change the essence of the clinical content of this encounter note. If there is need for further clarification, please direct questions to the provider listed above.) documented in this encounter Nursing Notes * Jolly Sánchez LPN - 06/14/2023 8:32 AM EST Patient identifed by name and birthdate Do you have any concerns about pain management for today's visit? No Living Will or Advance Directive for Health Care as noted on the problem list. [facility] is a way you can talk to your provider on line through e-mail. Would you like to sign up? I can activate it for you? ALREADY ACTIVE Filed Vitals: 06/14/23 0830 BP: 94/60 Pulse: 78 Resp: 16 Temp: 36.4 C (97.5 F) TempSrc: Tympanic Weight: 57.2 kg (126 lb) Patient was instructed to not get up on the exam table/exam chair until directed and assisted by their provider; patient is to remain seated in the chair/ wheelchair/ exam table/ exam chair for fall prevention and safety reasons. Patient is aware to have assistance to step down off exam table/exam chair with personnel. Patient voiced full comprehension of instructions. documented in this encounter Plan of Treatment Upcoming Encounters Date Type Department Care Team (Late st Contact Info) Description 07/05/2023 12:00 PM EDT Laboratory Laboratory [facility] [place] [address] [place] [address] [place], Lab [facility] [address] [place] [address] 07/05/2023 1:00 PM EDT Hem/Onc Treatment Hematology[address]cology [address] [address] 08/16/2023 12:00 PM EDT Laboratory Laboratory [facility] [place] [address] [place] [address] [place], Lab [facility] [address] [place] [address] 08/16/2023 1:00 PM EDT Hem/Onc Treatment [facility]ematology/Oncology Treatment, [place] [facility] [address] [place], Chair 9 Hem Onc [facility] [address] [place] [address] 10/25/2023 9:15 AM EDT Office Visit Hematology/Oncology [facility] [address] [place] [address] Kermit Estrada MD 200 [facility] [place] [address] Scheduled Orders Name Type Priority Associated Diagnoses Orde r Schedule PET CT SKULL BASE TO MID-THIGH FDG Medical Imaging Routine Malignant neoplasm of upper lobe of right lung (HCC) 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) Ordered: 06/14/2023 Health Maintenance Due Date Last Done Comments DXA Scan 1945 Depression Screening 1957 Hepatitis C Screening 1963 DTaP,Tdap,and Td Vaccines (1 - Tdap) 1964 COVID-19 Vaccine (4 - 2022- season) 2022 01/01/2022, 05/20/2020, 04/22/2020 Influenza Vaccine (FLU shot) (#1) 2022 01/07/2021, 12/23/2019, 12/09/2019, Additional history exists TSH 06/12/2024 06/13/2023, 09/2023, 04/24/2023, Additional history exists Pneumococcal Vaccine: 65+ Years Completed 02/07/2017, 01/05/2015, 04/09/2007 Zoster Vaccines Completed 01/24/2019, 11/07, 04/09/2007 GARDASIL-HPV IMMUNIZATION SERIES Aged Out No longer eligible based on patient's age to complete this topic Hepatitis B Aged Out No longer eligi ble based on patient's age to complete this topic MENINGOCOCCAL (MENACTRA/MENVEO) Aged Out No longer eligible based on patient's age to complete this topic documented as of this encounter Medical Devices Not on filedocumented as of this encounter Visit Diagnoses Diagnosis Malignant neoplasm of upper lobe of right lung (HCC)- Primary Malignant neoplasm of upper lobe, bronchus or lung 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
--- OUTSIDE RECORDS SUMMARY | 2023-06-21 16:02 | External Medical Summary | Summary of Care ---
Author Name Unknown Organization [facility] Address [address] [place] [address] Phone [phone] Care Team Providers Care Math And Science Instructor Name Role Phone Pro, Kolton Gaona MD Primary Care Provider +1- [phone] Reason for Visit * Reason Onset Date Comments Precert Future 06/14/2023 Keytruda Encounter Details Date Type Department Care Team (Late st Contact Info) Description 06/14/2023 Telephone Hematology/Oncology [facility] [address] [place] [address] Kermit Estrada MD [address] [place] [address] Precert Future (Keytruda) Allergies Active Allergy Reactions Criticality Noted Date [...] Date Smoking Tobacco: Never Smokeless Tobacco: Never Alcohol Use Standard Drinks/Week Comments Never 0 [...] on file documented as of this encounter Miscellaneous Notes * Telephone Encounter - Deon Suarez RN - 06/14/2023 10:[address] Estrada- pt changing to Keytruda 400mg every 6 weeks. We will need to review updated referralfor auth going forward with future appointments, pt receiving 200mg today. documented in this encounter Plan of Treatment Upcoming Encounters Date Type Department Care Team (Late st Contact Info) Description 07/05/2023 12:00 PM EDT Laboratory Laboratory [facility] [place] [address] [place] [phone] [place] [address] 07/05/2023 1:00 PM EDT Hem/Onc Treatment Hematology/Oncology Treatment, [place] [address] [place] [address] 08/16/2023 12:00 PM EDT Laboratory Laboratory [facility] [place] [address] [place] [phone] Vivek Pham [address] [place] [address] 08/16/2023 1:00 PM EDT Hem/Onc Treatment Hematology/Oncology Treatment, [place] [address] [place], [place] [address] [place], Chair 9 Hem Onc [address] [place] [address] 10/25/2023 9:15 AM EDT Office Visit Hematology/Oncology [facility] [place] [address] [facility] [place] [address] Kermit Estrada MD [address] [facility] [place] [address] Health Maintenance Due Date Last Done Comments DXA Scan 1945 Depression Screening 1957 Hepatitis C Screening 1963 DTaP,Tdap,and Td Vaccines (1 - Tdap) 1964 COVID-19 Vaccine (4 - 2022-24 season) 2022 01/01/2022, 05/20/2020, 04/22/2020 Influenza Vaccine [...] Not on filedocumented as of this encounter Care Teams Math And Science Instructor Relationship Specialty Start Date End Date Pro, Kolton Gaona MD [address] [place], [place] [address] PCP - General Internal Medicine 01/09/19 documented as of this encounter
--- OUTSIDE RECORDS SUMMARY | 2023-06-21 16:02 | External Medical Summary | Summary of Care ---
Author Name Unknown Organization [facility] Address [address] [facility] [address] Phone [phone] Care Team Providers Care Electrical And Instrumentation Manager Name Role Phone Pro, Kolton Gaona MD Primary Care Provider +1- [phone] Encounter Details Date Type Department Care Team (Late st Contact Info) Description 06/14/2023 Telephone Hematology/Oncology [facility] Senia Pham [address] [place] [address] Kermit Estrada MD [address] [place] [phone] Allergies Active Allergy Reactions Criticality Noted Date [...] encounter Miscellaneous Notes * Telephone Encounter - Yaz Robledo OSA - 06/14/2023 2:13 PM EST Error documented in this encounter Plan of Treatment Upcoming Encounters Date Type Department Care Team (Late st Contact Info) Description 07/05/2023 12:00 PM EDT Laboratory Laboratory [facility] [place] [address] [place] [address] [facility] [place] [address] 07/05/2023 1:00 PM EDT Hem/Onc Treatment Hematology/Oncology Treatment, [place] 200 [facility] [place] [address] 08/16/2023 12:00 PM EDT Laboratory Laboratory Lizbeth Pham [place] [address] [place] [address] [place] [place] [address] 08/16/2023 1:00 PM EDT Hem/Onc Treatment Hematology/Oncology Treatment, [place] [address] [place] [address] Vero, Chair 9 Hem Onc [facility] [address] [place] [address] 10/25/2023 9:15 AM EDT Office Visit Hematology/Oncology Lizbeth Pham [place] [address] [place] [phone] Kermit Estrada MD 200 [facility] [place] [address] Health Maintenance Due Date Last Done Comments DXA Scan 1945 Depression Screening 1957 Hepatitis C Screening 1963 DTaP,Tdap,and Td Vaccines (1 - Tdap) 1964 COVID-19 Vaccine (4 - 2022-24 season) 2022 01/01/2022, 05/20/2020, 04/22/2020 Influenza Vaccine (FLU shot) (#1) 2022 01/07/2021, 12/23/2019, 12/09/2019, Additional history exists TSH 06/12/2024 06/13/2023, 02/0 09/2023, 04/24/2023, Additional history exists Pneumococcal Vaccine: [...] filedocumented as of this encounter Care Teams Electrical And Instrumentation Manager Relationship Specialty Start Date End Date Pro, Kolton Gaona MD [address] [facility] [place] [address] PCP - General Internal Medicine 01/09/19 documented as of this encounter
--- OUTSIDE RECORDS SUMMARY | 2023-06-21 16:02 | External Medical Summary | Summary of Care ---
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) Malignant neoplasm of upper lobe of right lung (HCC) Procedures [place] INJ PEMBROLIZUMAB Kermit Estrada MD [address] [place] [address] Anc Hem/Onc Scenery [facility] DEPT CLOSED - 02/20/23 [address] [place] [address] Referral ID Status Reason Start Date Expiration Date V isits Requested Visits Authorized [id number] Authorized 02/14/2023 08/14/2023 999 [id number] Encounter Details Date Type Department Care Team (Latest Contact Info) Description 06/14/2023 9:15 AM EST Hem/Onc Treatment Hematology/Oncolog y Treatment, [place] [address] [place] [address] Vero, Chair 4 Hem Onc Scenery [address] [place] [phone] 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 IV removed. Goals: Pt will remain free from injury. Possible barriers to meeting goals: pt is a high fall risk Stability of the patient: Moderately stable - low risk of patient condition declining or worsening Summary regarding today's goals: Met: Pt remained free from injury during treatment today. Discharged in stable condition. No coverage. * Alecia Pelayo RN - 06/14/2023 9:33 AM EST Chair 7 Chemotherapy/Immunotherapy agents: KEYTRUDA Consent for chemotherapy drug treatment complete, dated, and signed? yes, date - 02/16/23 Treatment lab parameters met? Yes Has treatment weight changed > than 10%? No Treatment preauthorized? Yes VITALS Filed Vitals: See VS flowsheet Urine protein: N/A Patient education completed for treatment? Yes Blood transfusion consent signed and complete? NA Return appointment scheduled? Yes Patient had provider visit today? Yes - Ok to release order and treat per provider PIV established; NSS infusing. Safety and Risk for Injury Patient will remain free from injury. Ensure appropriate safety devices are available. Provide and maintain safe environment. Functional Status: Functional status at today's visit: Capable of only limited selfcare, confined to bed or chair more than 50% of waking hours The drug name, dose, infusion volume, rate and route of administration, expiration date and time, appearance and physical integrity of the drug and rate set on the pump and sequencing of drug administration (as applicable) were verified by me and second sign-in RN. Patient was assessed for symptoms or adverse side effects during treatment. documented in this encounter Plan of Treatment Upcoming Encounters Date Type Department Care Team (Late st Contact Info) Description 07/05/2023 12:00 PM EDT Laboratory Laboratory State Senia Johnson [facility] [place] [address] [phone] [facility] [place] [address] 07/05/2023 1:00 PM EDT Hem/Onc Treatment Hematology/Oncology Treatment, [place] 200 [facility] [place] [address] 08/16/2023 12:00 PM EDT Laboratory Laboratory [place] Senia Johnson [address] [place] [address] [facility] [place] [address] 08/16/2023 1:00 PM EDT Hem/Onc Treatment Hematology/Oncology Treatment, [place] [address] [place] [phone] Vero, Chair 9 Hem Onc [facility] 200 [facility] [place] [address] 10/25/2023 9:15 AM EDT Office Visit Hematology/Oncology [facility] [place] [address] [place] [phone] Kermit Estrada MD 200 [place] [address] Health Maintenance Due Date Last Done Comments [...] this encounter Visit Diagnoses Diagnosis 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)- Primary Malignant neoplasm of upper lobe of right lung (HCC) Malignant neoplasm of upper lobe, bronchus or lung Encounter for antineoplastic immunotherapy documented in this encounter Administered Medications Active Administered Medications - up to 3 most recent administrations Medication Order MAR Action Action Date Dose Rate Site diphenhydrAMINE (Benadryl) inj 50 mg 50 mg, IV Push, ONCE PRN Other, Hypersensitivity Reaction, Starting on Danya 06/14/23 at 1003, Until Sun06/15/23 at 1002, For 24 hours EPINEPHrine 1 MG/ML inj 0.3 mg 0.3 mg, Intramuscular, ONCE PRN Other, Hypersensitivity Reaction or Anaphylaxis, Starting on Danya 06/14/23 at 1003, Until Sun06/15/23 at 1002, For 24 hours hEParin 100 UNIT/ML Lock Flush inj 500 Units 500 Units (5 mL), IV Lock, PRN Other, IV Flush, Starting on Danya 06/14/23 at 1003, Until Sun06/15/23 at 1002, For 24 hours, Do not flush if lock, PICC, or central line not in place; IV infusing or unable to flush. Hydrocortisone Sod Suc (PF) (Solu-Cortef) inj 100 mg 100 mg, IV Push, ONCE PRN Other, Hypersensitivity Reaction, Starting on Sun06/14/23 at 1003, Until Sun06/15/23 at 1002, For 24 hours NSS infusion Intravenous, at 50 mL/hr, PRN, Starting on Sun06/14/23 at 1115, Until Discontinued, Maintenance line Start Infusion 06/14/2023 9:30 AM EST 50 mL/hr oxygen GAS Inhalation, OXYGEN, First dose on Sun06/14/23 at 1045, Until Discontinued, Device/Managed by: Low Flow Device, Goal SPO2 (%): 91-95, Starting Device: Nasal Cannula, Initial Flow Rate (LPM): 2, Lowest Support: Nasal Cannula: Flow 0-6 LPM. Titrate up/down by 1 LPM., Higher Support: Non-Rebreather (NRB) Mask: Minimum of 10 LPM. Titrate to maintain bag inflation., Titration Interval: Q2 minutes and as needed., Notify Provider: For sudden DECREASE in resting SPO2 to less than 85% and when escalating delivery device. sodium chloride 0.9 % flush central line 10 mL 10 mL, IV Push, PRN Other, IV Flush, Starting on Danya 06/14/23 at 1003, Until Sun06/15/23 at 1002, For 24 hours, Do not flush if lock, PICC, or central line not in place; IV infusing or unable to flush. Inactive Administered Medications - up to 3 most recent administrations Medication Order MAR Action Action Date Dose Rate Site Pembrolizumab (Keytruda) 200 mg in NSS 100 mL infusion 200 mg, IV Piggyback, ONCE, 1 dose, On Sun06/14/23 at 1145, Administer over 30 Minutes, Infuse through 0.2 micron filter. Start Infusion 06/14/2023 10:35 AM EST 200 mg 200 mL/hr documented in this encounter Care Teams Desk Operator Relationship Specialty Start Date End Date Pro, Kolton Gaona MD [address] [place] [address] PCP - General Internal Medicine 01/09/19 documented as of this encounter
--- OUTSIDE RECORDS SUMMARY | 2023-06-21 16:02 | External Medical Summary | Summary of Care ---
Author Name Unknown Organization [facility] Address [address] [place] [address] Phone [phone] Care Team Providers Care Steel Pourer Helper Name Role Phone Pro, Kolton Gaona MD Primary Care Provider +1- [phone] Reason for Visit * Reason Onset Date Comments Precert Future 06/14/2023 Keytruda Encounter Details Date Type Department Care Team (Late st Contact Info) Description 06/14/2023 Telephone Hematology/Oncology [facility] [address] [place] [address] Kermit Estrada MD [address] [place] [address] Precert Future (Keytruda) Allergies Active Allergy Reactions Criticality Noted Date Comments Doxycycline Nausea/vomiting 01/15/2023 Hydrocodone Nausea/vomiting 01/15/2023 Levofloxacin Nausea/vomiting High 12/30/2021 Sulfa Antibiotics 01/09/2019 documented as of this encounter (statuses as of 06/15/2023) Medications Medication Sig Dispensed Refills Start Date [...] as of this encounter (statuses as of 06/15/2023) Active Problems Problem Noted Date Diagnosed Date Malignant neoplasm metastatic to right adrenal g land 02/14/2023 History of lung cancer 10/02/2019 Malignant neoplasm of upper lobe of right lung 1 Cancer Staging:Clinical: Unsigned Pathologic stage from 01/09/2019:Stage IIIA(pT2a, pN2, cM0) - Signed by Kermit Estrada MD on 01/09/2019 documented as of this encounter (statuses as of 06/15/2023) Immunizations Name Administration Dates Next Due COVID-19 [...] encounter Miscellaneous Notes * Telephone Encounter - Margarita Mir RN - 06/15/2023 7:55 AM EST Referral entered. * Telephone Encounter - Deon Suarez RN [...] EDT Laboratory Laboratory State Senia Johnson [address] [place] [address] [address] [place] [address] 07/05/2023 1:00 PM EDT Hem/Onc Treatment Hematology/Oncology Treatment, [place] [address] [facility] [place] [address] 08/16/2023 12:00 PM EDT Laboratory Laboratory [facility] [place] [address] [place], [place] [address] Vero, Lab [facility] [address] [facility] [place] [address] 08/16/2023 1:00 PM EDT Hem/Onc Treatment Hematology/Oncology Treatment, [place] [address] [place] [phone] Vero, Chair 9 Hem Onc [facility] [address] [facility] [place], [place] [address] 10/25/2023 9:15 AM EDT Office Visit Hematology/Oncology [facility] [place] [address] [facility] [place], [place] [address] Kermit Estrada MD 200 [facility] [place], [place] [address] Health Maintenance Due Date Last Done Comments DXA Scan 1945 Depression Screening 1957 Hepatitis C Screening 1963 DTaP,Tdap,and Td Vaccines (1 - Tdap) 1964 COVID-19 Vaccine (4 - 2022- season) 2022 01/01/2022, 05/20/2020, 04/22/2020 Influenza Vaccine (FLU shot) (#1) 2022 01/07/2021, 12/23/2019, 12/09/2019, Additional history exists TSH 06/12/2024 06/13/2023, 0209/2023, 04/24/2023, Additional history exists Pneumococcal Vaccine: 65+ [...] filedocumented as of this encounter Care Teams Steel Pourer Helper Relationship Specialty Start Date End Date Pro, Kolton Gaona MD [address] [facility] [place] [address] PCP - General Internal Medicine 01/09/19 documented as of this encounter
--- OUTSIDE RECORDS SUMMARY | 2023-06-21 16:02 | External Medical Summary | Summary of Care ---
Author Name Unknown Organization [facility] Address [address] [facility] [address] Phone [phone] Care Team Providers Care Adobe Cq Developer Name Role Phone Pro, Kolton Gaona MD Primary Care Provider +1- [phone] Encounter Details Date Type Department Care Team (Late st Contact Info) Description 06/14/2023 Orders Only Hematology/Oncology [place] Sen[place] Johnson [address] [place] [address] Kermit Estrada MD [address] [place] [phone] Allergies Active Allergy Reactions Criticality Noted Date [...] on file documented as of this encounter Plan of Treatment Upcoming Encounters Date Type Department Care Team (Late st Contact Info) Description 07/05/2023 12:00 PM EDT Laboratory Laboratory Lizbeth Pham [place] [address] [address] [place] [address] 07/05/2023 1:00 PM EDT Hem/Onc Treatment Hematology/Oncology Treatment [place] [address] [place] [address] [phone] 08/16/2023 12:00 PM EDT Laboratory Laboratory Lizbeth Pham [place] [address] [place] [address] [address] [place] [address] 08/16/2023 1:00 PM EDT Hem/Onc Treatment Hematology/Oncology Treatment [place] [address] [place] [address] [address] Vero, Chair 9 [facility] [place] [address] 10/25/2023 9:15 AM EDT Office Visit Hematology/Oncology [place] [facility]ero [place] [address] [place] [address] Kermit Estrada MD [address] [place] [address] Health Maintenance Due Date Last Done Comments [...] filedocumented as of this encounter Care Teams Adobe Cq Developer Relationship Specialty Start Date End Date Pro, Kolton Gaona MD [address] [place] [address] PCP - General Internal Medicine 01/09/19 documented as of this encounter
--- OUTSIDE RECORDS SUMMARY | 2023-06-21 16:02 | External Medical Summary | Summary of Care ---
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) Malignant neoplasm of upper lobe of right lung (HCC) Procedures [place] INJ PEMBROLIZUMAB Kermit Estrada MD [address] [place] [address] Anc Hem/Onc Scenery [facility] DEPT CLOSED - 02/20/23 [address] [place] [address] Referral ID Status Reason Start Date Expiration Date V isits Requested Visits Authorized [id number] Authorized 02/14/2023 08/14/2023 999 [id number] Encounter Details Date Type Department Care Team (Latest Contact Info) Description 06/14/2023 9:15 AM EST Hem/Onc Treatment Hematology/Oncolog y Treatment, [place] [address] [place] [address] Vero, Chair 4 Hem Onc [place] [address] [place] [phone] Malignant neoplasm metastatic to right adrenal gland [...] PM EDT Laboratory Laboratory [place] Senia Johnson [facility] [place] [phone] [facility] [place] [address] 07/05/2023 1:00 PM EDT Hem/Onc Treatment Hematology/Oncology Treatment, [place] 200 [facility] [place] [address] 08/16/2023 12:00 PM EDT Laboratory Laboratory [place] Senia Johnson [address] [place] [address] [facility] [place] [address] [place] [address] 08/16/2023 1:00 PM EDT Hem/Onc Treatment Hematology/Oncology Treatment, [place] [address] [place] [phone] Vero, Chair 9 Hem Onc [facility] 200 [facility] [place] [address] 10/25/2023 9:15 AM EDT Office Visit Hematology/Oncology [facility] [place] [address] [place] [phone] Kermit Estrada MD 200 [facility] [place] [address] Health Maintenance Due Date Last Done Comments [...] mL/hr documented in this encounter Care Teams Clinical Informatics Strategist Relationship Specialty Start Date End Date Pro, Kolton Gaona MD [address] [place] [facility] [place] [address] PCP - General Internal Medicine 01/09/19 documented as of this encounter
--- OUTSIDE RECORDS SUMMARY | 2023-06-21 16:03 | External Medical Summary | Summary of Care ---
Author Name Unknown Organization [facility] Address [address] [facility] [address] Phone [phone] Care Team Providers Care District Manager Major Accounts Sales Name Role Phone Pro, Kolton Gaona MD Primary Care Provider +1- [phone] Encounter Details Date Type Department Care Team (Late st Contact Info) Description 06/14/2023 Orders Only Hematology/Oncology [place] Sen[place] Johnson [address] [place] [address] Kermit Estrada MD [address] [place] [phone] Allergies Active Allergy Reactions Criticality Noted Date [...] 12:00 PM EDT Laboratory Laboratory Lizbeth Pham [place] [address] [place] [address] [place] [address] 07/05/2023 1:00 PM EDT Hem/Onc Treatment Hematology/Oncology Treatment [place] [address] [address] 08/16/2023 12:00 PM EDT Laboratory Laboratory Lizbeth Pham [place] [address] [place] [address] [address] [place] [address] 08/16/2023 1:00 PM EDT Hem/Onc Treatment Hematology/Oncology Treatment [place] [address] [address] [facility]ero, Chair 9 [facility] [place] [address] 10/25/2023 9:15 AM EDT Office Visit Hematology/Oncology [place] [facility] [place] [address] [place] [address] Kermit Estrada MD [address] [place] [address] Health Maintenance Due Date Last Done Comments [...] filedocumented as of this encounter Care Teams District Manager Major Accounts Sales Relationship Specialty Start Date End Date Pro, Kolton Gaona MD [address] [place] [address] PCP - General Internal Medicine 01/09/19 documented as of this encounter
--- OUTSIDE RECORDS SUMMARY | 2023-06-21 16:03 | External Medical Summary | Summary of Care ---
Author Name Unknown Organization [facility] Address [address] [facility] [address] Phone [phone] Care Team Providers Care Interlocker Maintainer Name Role Phone Pro, Kolton Gaona MD Primary Care Provider +1- [phone] Encounter Details Date Type Department Care Team (Late st Contact Info) Description 06/14/2023 Orders Only Hematology/Oncology [place] Sen[place] Johnson [address] [place] [address] Kermit Estrada MD [address] [place] [phone] Allergies Active Allergy Reactions Criticality Noted Date [...] Care Team (Late st Contact Info) Description 07/26/2023 12:00 PM EDT Laboratory Laboratory [facility] [address] [place] [address] [facility] Lab [address] [place] [address] 07/26/2023 1:00 PM EDT Hem/Onc Treatment Hematology/Oncology Treatment, [address] [place] [phone] Vero, Chair 4 Hem Onc [address] [place] [address] 10/25/2023 9:15 AM EDT Office Visit Hematology/Oncology [facility] [place] [address] [place] [address] Kermit Estrada MD [address] [place] [address] [place] [address] Health Maintenance Due Date Last Done Comments [...] filedocumented as of this encounter Care Teams Interlocker Maintainer Relationship Specialty Start Date End Date Pro, Kolton Gaona MD [address] [place] [facility] [place] [address] PCP - General Internal Medicine 01/09/19 documented as of this encounter
--- OUTSIDE RECORDS SUMMARY | 2023-06-21 16:03 | External Medical Summary ---
Author Name Unknown Address Unknown Organization K01:[facility] - [address] [place] [address] Laboratory Report Ordering Provider Test Date Status JS KRAUSE 06/13/2023 06:22:00 Final Observation Date Value Abnormality Reference (Units ) Status TSH 06/13/2023 06:22:00 2.49 0.27-4.20 (uIU/mL) Final Performing Location LABORATORY [facility] - [address] [place] [address]
--- OUTSIDE RECORDS SUMMARY | 2023-06-21 16:03 | External Medical Summary | Summary of Care ---
Author Name Unknown Organization [facility] Address [address] [place] [address] Phone [phone] Care Team Providers Care Educational Therapist Name Role Phone Pro, Kolton Gaona MD Primary Care Provider +1- [phone] Encounter Details Date Type Department Care Team (Late st Contact Info) Description 06/13/2023 Orders Only Lab Mobile Phlebotomy [facility] [place] [address] [place] [address] Kristy Mondragon CRNP [address] [place] [address] Hypothyroidism*; Secondary DM with hyperosmolarity (HCC); Vitamin D deficiency Allergies Active Allergy Reactions Criticality Noted Date Comments Doxycycline Nausea/vomiting 01/15/2023 Hydrocodone Nausea/vomiting 01/15/2023 Levofloxacin Nausea/vomiting High 12/30/2021 Sulfa Antibiotics 01/09/2019 documented as of this encounter (statuses as of 06/13/2023) Medications Medication Sig Dispensed Refills Start Date [...] as of this encounter (statuses as of 06/13/2023) Active Problems Problem Noted Date Diagnosed Date Malignant neoplasm metastatic to right adrenal g land 02/14/2023 History of lung cancer 10/02/2019 Malignant neoplasm of upper lobe of right lung 1 Cancer Staging:Clinical: Unsigned Pathologic stage from 01/09/2019:Stage IIIA(pT2a, pN2, cM0) - Signed by Kermit Estrada MD on 01/09/2019 documented as of this encounter (statuses as of 06/13/2023) Immunizations Name Administration Dates Next Due COVID-19 [...] Team (Late st Contact Info) Description 06/14/2023 8:10 AM EST Laboratory Laboratory [facility] [place] [address] [facility] [place] [phone] Vivek Pham [address] [place] [address] 06/14/2023 8:45 AM EST Office Visit Hematology/Oncology [facility] [address] [phone] Kermit Estrada MD [address] [facility] [place] [address] 06/14/2023 9:15 AM EST [facility] [address] [place] [phone] Vero, Chair 4 Hem Onc [address] [place] [address] Scheduled Orders Name Type Priority Associated Diagnoses Orde r Schedule BASIC METABOLIC PANEL Lab Routine Hypothyroidism Secondary DM with hyperosmolarity (HCC) Vitamin D deficiency Expected: 06/13/2023, Expires: 06/12/2024 CBC WITH WBC DIFFERENTIAL Lab Routine Hypothyroidism Secondary DM with hyperosmolarity (HCC) Vitamin D deficiency Expected: 06/13/2023, Expires: 06/12/2024 TSH Lab Routine Hypothyroidism Secondary DM with hyperosmolarity (HCC) Vitamin D deficiency Expected: 06/13/2023, Expires: 06/12/2024 25-HYDROXY VITAMIN D Lab Routine Hypothyroidism Secondary DM with hyperosmolarity (HCC) Vitamin D deficiency Expected: 06/13/2023, Expires: 06/12/2024 Health Maintenance Due Date Last Done Comments DXA Scan 1945 Depression Screening 1957 Hepatitis C Screening 1963 DTaP,Tdap,and Td Vaccines (1 - Tdap) 1964 COVID-19 Vaccine (4 - 2022-24 season) 2022 01/01/2022, 05/20/2020, 04/22/2020 Influenza Vaccine (FLU shot) (#1) 2022 01/07/2021, 12/23/2019, 12/09/2019, Additional history exists TSH 05/15/2024 05/15/2023, 04/09, 04/03/2023, Additional history exists Pneumococcal Vaccine: 65+ Years [...] as of this encounter Visit Diagnoses Diagnosis Hypothyroidism- Primary Unspecified hypothyroidism Secondary DM with hyperosmolarity (HCC) Secondary diabetes mellitus with hyperosmolarity, not stated as uncontrolled, or unspecified Vitamin D deficiency Unspecified vitamin D deficiency documented in this encounter Care Teams Educational Therapist Relationship Specialty Start Date End Date Pro, Kolton Gaona MD [address] [facility] [place] [address] PCP - General Internal Medicine 01/09/19 documented as of this encounter
--- OUTSIDE RECORDS SUMMARY | 2023-06-21 16:03 | External Medical Summary | Summary of Care ---
Author Name Unknown Organization [facility] Address [address] [facility] [place] [address] Phone [phone] Care Team Providers Care Investment Advisor Name Role Phone Pro, Kolton Gaona MD Primary Care Provider +1- [phone] Encounter Details Date Type Department Care Team (Late st Contact Info) Description 06/14/2023 Orders Only Hematology/Oncology [facility] [address] [place] [phone] Kermit Estrada MD [address] [place] [address] Malignant neoplasm of upper lobe of right [...] as of this encounter Plan of Treatment Health Maintenance Due Date Last Done Comments [...] Not on filedocumented as of this encounter Results * (ABNORMAL) HEPATIC FUNCTION PANEL (06/13/2023 6:22 AM EST) Albumin 3.8 3.8 - 5.0 g/dL 06/14/2023 8:47 AM EST [facility] [place] [facility]10 AST 11 10 - 35 U/L 06/14/2023 8:47 AM EST [facility] [place] 57-10 Alkaline Phosphatase 54 35 - 130 U/L 06/14/2023 8:47 AM EST [facility] [place] 57-10 ALT 8(L) 10 - 35 U/L 06/14/2023 8:47 AM EST [facility] [place] 57-10 Bilirubin, Total 0.3 <=1.2 mg/dL 06/14/2023 8:47 AM EST [facility] [place] 57-10 Bilirubin, Direct <0.2 0.0 - 0.3 mg/dL 06/14/2023 8:47 AM EST [facility] [place] 57[facility]10 Protein 6.1 6.0 - 8.3 g/dL 06/14/2023 8:47 AM EST [facility] [place] [facility]10 Blood Venous blood specimen / Unknown Venipuncture / Unknown 06/13/2023 6:22 AM EST 06/13/2023 8:04 AM EST Kermit Estrada MD LAB BLOOD ORDERABLES [facility] 57[address] [place] [address] documented in this encounter Visit Diagnoses Diagnosis Malignant neoplasm of upper lobe of right lung (HCC)- Primary Malignant neoplasm of upper lobe, bronchus or lung 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
--- OUTSIDE RECORDS SUMMARY | 2023-06-21 16:03 | External Medical Summary ---
Author Name Unknown Address Unknown Organization [id number] [address] [place] [address] Laboratory Report Ordering Provider Test Date Status JONNY GASTELUM 06/13/2023 06:22:00 Final Observation Date Value Abnormality Reference (Units ) Status Albumin 06/13/2023 06:22:00 3.8 3.8-5.0 (g/dL) Final AST (Aspartate aminotransferase) 06/13/2023 06:22:00 11 10-35 (U/L) Final Alk Phos 06/13/2023 06:22:00 54 35-130 (U/L) Final ALT (Alanine aminotransferase) 06/13/2023 06:22:00 8 Below low normal 10-35 (U/L) Final Bilirubin, Total 06/13/2023 06:22:00 0.3 <=1.2 (mg/dL) Final Bilirubin, Direct 06/13/2023 06:22:00 <0.2 0.0-0.3 (mg/dL) Final Protein 06/13/2023 06:22:00 6.1 6.0-8.3 (g/dL) Final Performing Location [facility] [address] - [address] [place] [address]
--- OUTSIDE RECORDS SUMMARY | 2023-06-21 16:03 | External Medical Summary ---
Author Name Unknown Address Unknown Organization [id number] [address] - [address] [place] [address] Laboratory Report Ordering Provider Test Date Status JS KRAUSE 06/13/2023 06:22:00 Final Observation Date Value Abnormality Reference (Units ) Status WBC, Total 06/13/2023 06:22:00 7.56 4.00-10.8 0 (K/uL) Final RBC 06/13/2023 06:22:00 3.68 3.85-5.15 (M/uL) Final Hemoglobin 06/13/2023 06:22:00 11.9 Below low normal 12 .0-15.3 (g/dL) Final HCT 06/13/2023 06:22:00 35.4 Below low normal 36. 0-45.2 (%) Final MCV 06/13/2023 06:22:00 96.2 81.5-97.5 (fL) Final MCH 06/13/2023 06:22:00 32.3 27.0-34.0 (pg) Final MCHC 06/13/2023 06:22:00 33.6 32.0-36.0 (g/dL) Final RDW 06/13/2023 06:22:00 13.1 11.5-15.5 (%) Final Platelets 06/13/2023 06:22:00 304 140-400 (K /uL) Final MPV 06/13/2023 06:22:00 9.5 6.6-11.1 ( fL) Final Performing Location [facility] [address] [place] [address]
--- OUTSIDE RECORDS SUMMARY | 2023-06-21 16:03 | External Medical Summary ---
Author Name Unknown Address Unknown Organization [facility] [place] [address] - [address] [place] [address] Laboratory Report Ordering Provider Test Date Status JS KRAUSE 06/13/2023 06:22:00 Final Observation Date Value Abnormality Reference (Units ) Status BUN 06/13/2023 06:22:00 22 Above high normal 6-20 (mg/dL) Final Creatinine 06/13/2023 06:22:00 0.9 0.5-1.0 (mg/dL) Final Glomerular filtration rate/1.73 sq M.predicted [Volume Rate/Area] in Serum, Plasma or Blood by Creatinine-based formula (CKD-EPI) 06/13/2023 06:22:00 65 >=60 (mL/min) Final eGFR is calculated based on the CKD-EPI 2020 equation SODIUM 06/13/2023 06:22:00 140 135-146 (m mol/L) Final Potassium 06/13/2023 06:22:00 3.9 3.5-5.1 (m mol/L) Final Cl 06/13/2023 06:22:00 102 98-107 (mm ol/L) Final CO2 06/13/2023 06:22:00 26 22-32 (mmo l/L) Final Anion gap 06/13/2023 06:22:00 12 7-15 (mmol /L) Final Glucose 06/13/2023 06:22:00 115 70-120 (mg /dL) Final Calcium 06/13/2023 06:22:00 9.5 8.4-10.2 ( mg/dL) Final Performing Location [facility]ORY [facility] [address] [place] [address]
--- OUTSIDE RECORDS SUMMARY | 2023-06-21 16:03 | External Medical Summary | Summary of Care ---
Author Name Unknown Organization [facility] Address [address] [place] [address] Phone [phone] Care Team Providers Care Station Manager Name Role Phone Pro, Kolton Gaona MD Primary Care Provider +1- [phone] Reason for Visit * Reason Comments Outpatient Testing Encounter Details Date Type Department Care Team (Late st Contact Info) Description 06/14/2023 8:10 AM EST Laboratory Laboratory [facility] [address] [place] [phone] [facility] [address] [address] [place] [address] Arrived Allergies Active Allergy Reactions Criticality Noted Date [...] Team (Late st Contact Info) Description 06/14/2023 9:15 AM EST Hem/Onc Treatment Hematology/Oncology Treatment, [place] [address] [place] [address] [facility], Chair 4 Hem Onc [address] [address] [place] [address] Arrived Health Maintenance Due Date Last Done Comments DXA Scan 1945 Depression Screening 1957 Hepatitis C Screening 1963 DTaP,Tdap,and Td Vaccines (1 - Tdap) 1964 COVID-19 Vaccine (2022- season) 2022 01/01/2022, 05/20/2020, 04/22/2020 Influenza Vaccine [...] filedocumented as of this encounter Care Teams Station Manager Relationship Specialty Start Date End Date Pro, Kolton Gaona MD [address] [place] [address] PCP - General Internal Medicine 01/09/19 documented as of this encounter
--- OUTSIDE RECORDS SUMMARY | 2023-06-21 16:03 | External Medical Summary ---
Author Name Unknown Address Unknown Organization [facility] [place] [address] [place] [address] Laboratory Report Ordering Provider Test Date Status JS KRAUSE 06/13/2023 06:22:00 Final Observation Date Value Abnormality Reference (Units ) Status SYNC LEUKOCYTES IN BLOOD BY AUTOMATED COUNT 06/13/2023 06:22:00 7.56 4.00-10.80 (K/uL) Final Neutrophils/100 leukocytes in Blood by Manual count 06/13/2023 06:22:00 62.0 40.0-75.0 (%) Final Lymphocytes/100 leukocytes in Blood by Manual count 06/13/2023 06:22:00 23.0 18.0-42.0 (%) Final Monocytes/100 leukocytes in Blood by Manual count 06/13/2023 06:22:00 10.0 1.0-11.0 (%) Final Eosinophils/100 leukocytes in Blood by Manual count 06/13/2023 06:22:00 3.0 0.0-6.0 (%) Final Basophils/100 leukocytes in Blood by Manual count 06/13/2023 06:22:00 1.0 0.0-2.0 (%) Final Metamyelocytes/100 leukocytes in Blood by Manual count 06/13/2023 06:22:00 1.0 Above high normal <=0.0 (%) Final Neutrophils [#/volume] in Blood by Manual count 06/13/2023 06:22:00 4.69 1.80-7.70 (K/uL) Final Lymphocytes [#/volume] in Blood by Manual count 06/13/2023 06:22:00 1.74 1.00-4.80 (K/uL) Final Monocytes [#/volume] in Blood by Manual count 06/13/2023 06:22:00 0.76 0.00-1.10 (K/uL) Final Eosinophils [#/volume] in Blood by Manual count 06/13/2023 06:22:00 0.23 0.00-0.70 (K/uL) Final Basophils [#/volume] in Blood by Manual count 06/13/2023 06:22:00 0.08 0.00-0.20 (K/uL) Final Metamyelocytes [#/volume] in Blood by Manual count 06/13/2023 06:22:00 0.08 Above high normal <=0.00 (K/uL) Final Nucleated erythrocytes/100 leukocytes [Ratio] in Blood by Automated count 06/13/2023 06:22:00 Final Performing Location [facility] [place] [address] [facility] [address]
--- OUTSIDE RECORDS SUMMARY | 2023-06-21 16:03 | External Medical Summary ---
Author Name Unknown Address Unknown Organization K[facility] [place] [address] [place] [address] Laboratory Report Ordering Provider Test Date Status JS KRAUSE 06/13/2023 06:22:00 Final Deficient: <20 ng/mL
Ins ufficient: 20-29 ng/mL
Recommended/Optimum:30-50 ng/mL

Vitamin D intoxication is rare. If suspicious of Vitamin D toxicity, evaluation of serum Calcium and PTH is recommended. Observation Date Value Abnormality Reference (Units ) Status 25-OH Vitamin D total 06/13/2023 06:22:00 46 >19 (ng/mL) Final Performing Location [facility] [place] [address] [place] [address]
[2023-06-21] MEDS ORDERED: LORazepam 0.5 MG in SYRINGE 0.25 ML IV PRN (18:17)
[2023-06-21] MEDS: MAGNESIUM SULFATE / D5W 1 GM/100 ML BAG IV ONE (18:42)
[2023-06-21] MEDS: ACETAMINOPHEN 325 MG TAB PO PRN (19:56)
[2023-06-21] MEDS: MELATONIN 3 MG TAB PO PRN (19:56)
[2023-06-21] MEDS ORDERED: LORazepam 0.5 MG TAB PO PRN (23:22)
[2023-06-22 06:31] LABS: Basophils # (auto) 0.05 K/uL (0.00-0.20); Basophils % (auto) 0.4 %; Eosinophils # (auto) 0.04 K/uL (0.00-0.50); Eosinophils % (auto) 0.4 %; Hematocrit (blood only) 39.4 % (37.0-47.0); Hemoglobin 13.5 g/dl (12.0-16.0); Immature Granulocytes # (auto) 0.11 K/uL (0.01-0.20); Lymphocytes # (auto) 0.96 K/uL (1.20-3.40); Lymphocytes % (auto) 8.4 %; Mean Corpuscular Hemoglobin 31.8 pg (25.0-34.0); Mean Corpuscular Hgb Conc 34.3 g/dL (32.0-36.0); Mean Corpuscular Volume 92.7 fL (80.0-100.0); Mean Platelet Volume 9.6 fL (9.4-12.4); Monocytes # (auto) 1.32 K/uL (0.11-0.59); Monocytes % (auto) 11.6 %; Neutrophils # (auto) 8.91 K/uL (1.40-6.50); Neutrophils % (auto) 78.2 %; Platelet Count 255 K/uL (130-400); RDW Coefficient of Variation 12.5 % (11.5-14.5); RDW Standard Deviation 42.6 fL (36.4-46.3); Red Blood Count 4.25 M/uL (4.20-5.40); White Blood Count 11.39 K/ul (4.8-10.8)
[2023-06-22 06:52] LABS: BUN Creatinine Ratio 32.1 (10-20); Calcium 9.4 mg/dl (8.6-10.3); Creatinine Clr Calc Pharmacy 58.4 ml/min; Est GFR (African American) 84.4 ml/min; Est GFR (Non-African American) 72.8 ml/min; Magnesium 2.1 mg/dl (1.7-2.4); Potassium 3.5 mmol/L (3.5-5.1)
--- NOTE | 2023-06-22 12:33 | Pharmacy Report ---
Pharmacy Glycemic Short Note 2 - Date of Service June 22, 2023 - Glycemic Short BSG Results (Last 24 hours): 06/21/23 06/21/23 06/22/23 17:21 20:25 06:01 Glucose 124 H POC Glucose 290 H 151 H 06/22/23 08:12 Glucose POC Glucose 110 H OUTPATIENT ANTIDIABETIC REGIMEN: * metformin 500mg PO BID HbA1C: 7.4% ASSESSMENT: 06/21: * BSGs [phone]/dL. Received 10 units of basal and 16 units of bolus insulin yesterday. * Continues on prednisone 40mg PO daily. Decreased PO intake. * Lantus 10 units today, however will reassess basal tomorrow given decreased PO. Novolog tightened for improved prandial coverage. 06/20: * Pt is a 78 year old female with a history of DM2 on metformin at home. Pharmacy consulted to assist with inpatient glycemic management. * BSGs [phone]/dL since admission. Received 11 units of basal and 5 units of bolus insulin last night. * Receiving prednisone 40mg PO daily, diet ordered. * Will continue with Lantus 10 units daily while on steroids. Agree with Novolog moderate stress scale for now. PLAN FOR INPATIENT GLYCEMIC CONTROL: * Hold outpatient oral diabetes medications * Basal insulin * Lantus 10 units SQ daily * Bolus insulin * NovoLog per scale ACHS or Q6hrs while NPO * Goal Range: Low 110 mg/dL - High 140 mg/dL * Correction Factor: 25mg/dL/unit * Nutritional / Prandial insulin per carb ratio of 1 unit per 8 grams CHO consumed
--- NOTE | 2023-06-22 15:33 | Hospitalist Progress Note ---
Date of Service June 22, 2023 Assessment & Plan (1) RSV (respiratory syncytial virus infection): Plan: -Worsening SOB x 2-3 days with a witnessed ground-level fall on 06/19 -RSV + on arrival -Leukocytosis to 17.30 with a neutrophil predominance -- improving -CXR with interstitial thickening but no airspace opacities -Patient received Rocephin 2000 mg IV in the ED; will defer further antibiotics at this time -MRSA swab -- negative -Blood culturesno growth after 24 hours -Continue raloxifene for lung cancer -Continue Trelegy Ellipta, Singulair for COPD -DuoNeb 3 mL q6r -Guaifenesin 60 mg p.o. BID -Prednisone 40 mg daily -Supplemental oxygen as needed to maintain SpO2 >89%; -Acetaminophen as needed for pain/fever -Physical therapy recommends SNF rehab upon discharge due to high risk for continued falls, decreased tolerance to activities, and poor dynamic balance (2) Dementia: Plan: - Patient is oriented only to self at baseline - Resides in an memory care at [facility] - Seroquel 25 mg PO HS for hospital associated delirium/sundown syndrome with dementia (3) Diabetes type 2, controlled: Plan: - Glucose 219 on admission - A1c 7.4% on 06/21/2023 - Hold metformin - Lantus 11 u BID while inpatient - SSI; with target BSG range 110-140mg/dL, CF 35, carb ratio 12 -- adjust regimen as needed - Pharmacy glycemic management consult given patient is on prednisone 40 mg daily (4) Hypomagnesemia: Plan: - Mag low at 1.5 on admission - Magnesium sulfate 3 g IV given in the ED -- repleted Plan CODE STATUS: DNR/DNI VTE PPx: Lovenox 40 mg SQ q24h Admission and Anticipated Discharge Date Admission Date: June 20, 2023 Subjective Patient seen and evaluated at bedside. She reports no complaints at this time, however she is disoriented at baseline due to underlying dementia. She remains on supplemental oxygen at 2 L. Last night, patient was agitated and noncompl iant with remaining in bed, keeping nasal cannula on, and keeping heart monitor on. Given the underlying dementia and potential hospital associated delirium, seroquel 25 mg HS ordered to hopefully prevent this tonight. Physical therapy recommends SNF rehab placement upon discharge due to high risk for continued falls, decreased tolerance to activities, and poor dynamic balance. Patient will most likely stay admitted to the hospital through the weekend due to requiring insurance authorization and transport. I discussed this with the patient's [id number], Brenden. Physical Exam Physical Exam: General: No acute distress, nondiaphoretic, well-developed, well-nourished. Skin: The skin was without rashes, erythema, edema. Abrasion on right knee and left hand. Cardiac: Regular rate and rhythm without murmurs gallops or rubs. Pulm: Coarse breath sounds across all lung [place] bilaterally. Inspiratory wheezing and expiratory crackles. No acute respiratory distress. No retractions or accessory muscle use. 92% on 2 L via nasal cannula. Abdominal: Positive bowel sounds x 4. Soft, nontender, without masses or organomegaly. No guarding or rebound tenderness. Neuro: Alert and oriented x1this is patient's baseline. No focal neurological deficits. Results & Data Results & Data Vital Signs (Past 12 Hours) Vital Signs Temp Pulse Pulse Pulse Resp BP Pulse Ox 06/22/23 15:14 36.3 C L 76 18 109/54 L 93 06/22/23 13:18 78 20 95 06/22/23 11:53 06/22/23 11:23 36.5 C 73 18 98/53 L 96 06/22/23 08:00 56 L 06/22/23 07:38 36.9 C 63 18 114/7 L 99 06/22/23 07:19 64 18 97 06/22/23 03:45 36.6 C 70 18 127/71 94 O2 Del Method O2 Flow Rate 06/22/23 15:14 Nasal Cannula 2 06/22/23 13:18 Nasal Cannula 2 06/22/23 11:53 Nasal Cannula 06/22/23 11:23 Nasal Cannula 2 06/22/23 08:00 06/22/23 07:38 Nasal Cannula 2 06/22/23 07:19 Nasal Cannula 2 06/22/23 03:45 Nasal Cannula 3 Laboratory Results Reviewed CBC Reviewed chemistry PG Care Time/CCT Total # of Minutes Spent Total Time Spent with Patient: Total time spent is greater than 50% in coordination of care (as documented) at patient's floor/unit and/or counseling patient: Coding Level of Care Code 82828 SUB INP/OBS CARE 3/50MIN Diagnoses RSV (respiratory syncytial virus infection) B33.8 Dementia F03.90 Diabetes type 2, controlled E11.9 Hypomagnesemia E83.42
[2023-06-22] MEDS ORDERED: QUEtiapine FUMARATE 25 MG TABLET PO PRN (15:50)
[2023-06-22] MEDS: QUEtiapine FUMARATE 25 MG TABLET PO SCH (20:30)
--- NOTE | 2023-06-23 06:10 | Electrocardiogram Report ---
Test Reason : Blood Pressure : / mmHG Vent. Rate : 080 BPM Atrial Rate : 080 BPM P-R Int : 144 ms QRS Dur : 070 ms QT Int : 372 ms P-R-T Axes : -08 012 -19 degrees QTc Int : 429 ms Normal sinus rhythm Anteroseptal infarct (cited on or before 20-JUN-2023) Nonspecific ST abnormality Abnormal ECG When compared with ECG of 26-NOV-2018 09:58, QRS voltage has decreased T wave inversion now evident in Inferior leads Confirmed by Reynaldo Ivy ([id number]) on 06/23/2023 6:10:33 AM Referred By: Confirmed By:Reynaldo Ivy
[2023-06-23 09:12] LABS: Basophils # (auto) 0.08 K/uL (0.00-0.20); Basophils % (auto) 1.1 %; Eosinophils # (auto) 0.08 K/uL (0.00-0.50); Eosinophils % (auto) 1.1 %; Hematocrit (blood only) 40.7 % (37.0-47.0); Immature Granulocytes # (auto) 0.15 K/uL (0.01-0.20); Lymphocytes % (auto) 21.1 %; Mean Corpuscular Hemoglobin 31.7 pg (25.0-34.0); Mean Corpuscular Hgb Conc 34.4 g/dL (32.0-36.0); Mean Corpuscular Volume 92.1 fL (80.0-100.0); Mean Platelet Volume 9.3 fL (9.4-12.4); Monocytes # (auto) 1.31 K/uL (0.11-0.59); Monocytes % (auto) 17.3 %; Neutrophils # (auto) 4.36 K/uL (1.40-6.50); Neutrophils % (auto) 57.4 %; Platelet Count 259 K/uL (130-400); RDW Coefficient of Variation 12.5 % (11.5-14.5); RDW Standard Deviation 42.3 fL (36.4-46.3); Red Blood Count 4.42 M/uL (4.20-5.40); White Blood Count 7.58 K/ul (4.8-10.8)
[2023-06-23 09:19] LABS: BUN Creatinine Ratio 34.2 (10-20); Calcium 9.4 mg/dl (8.6-10.3); Est GFR (African American) 87.1 ml/min; Est GFR (Non-African American) 75.1 ml/min; Potassium 3.5 mmol/L (3.5-5.1)
--- NOTE | 2023-06-23 13:29 | Hospitalist Progress Note ---
Date of Service June 23, 2023 Assessment & Plan (1) RSV (respiratory syncytial virus infection): Plan: -Worsening SOB x 2-3 days with a witnessed ground-level fall on 06/19 -RSV + on arrival -Leukocytosis to 17.30 with a neutrophil predominance on admission - WNL on -CXR with interstitial thickening but no airspace opacities -RSV bronchitis -Patient received Rocephin 2000 mg IV in the ED; will defer further antibiotics at this time -MRSA swab -- negative -Blood culturesno growth after 48 hours -Continue raloxifene for lung cancer -Continue Trelegy Ellipta, Singulair for COPD -DuoNeb 3 mL q6r -Guaifenesin 60 mg p.o. BID -Prednisone 40 mg daily -Supplemental oxygen as needed to maintain SpO2 >89%; -Acetaminophen as needed for pain/fever -Physical therapy recommends SNF rehab upon discharge due to high risk for continued falls, decreased tolerance to activities, and poor dynamic balance. Tentative discharge on 06/25/23. (2) Dementia: Plan: - Patient is oriented only to self at baseline - Resides in an memory care at [facility] - Seroquel 25 mg PO HS for hospital associated delirium/sundown syndrome with dementia (3) Diabetes type 2, controlled: Plan: - Glucose 219 on admission - A1c 7.4% on 06/21/2023 - Hold metformin - Lantus 11 u BID while inpatient - SSI; with target BSG range 110-140mg/dL, CF 35, carb ratio 12 -- adjust regimen as needed - Pharmacy glycemic management consult given patient is on prednisone 40 mg daily (4) Hypomagnesemia: Plan: - Mag low at 1.5 on admission - Magnesium sulfate 3 g IV given in the ED -- repleted Plan CODE STATUS: DNR/DNI VTE PPx: Lovenox 40 mg SQ q24h Admission and Anticipated Discharge Date Admission Date: June 20, 2023 Physical Exam Physical Exam: General: No acute distress, nondiaphoretic, well-developed, well-nourished. Skin: The skin was without rashes, erythema, edema. Abrasion on right knee and left hand. Cardiac: Regular rate and rhythm without murmurs gallops or rubs. Pulm: Coarse breath sounds across all lung [place] bilaterally. No acute respiratory distress. No retractions or accessory muscle use. 98% on 2 L via nasal cannula. Abdominal: Positive bowel sounds x 4. Soft, nontender, without masses or organomegaly. No guarding or rebound tenderness. Neuro: Alert and oriented x1this is patient's baseline. No focal neurological deficits. Results & Data Results & Data Vital Signs (Past 12 Hours) Vital Signs Temp Pulse Pulse Resp BP Pulse Ox O2 Del Method 06/23/23 12:31 Nasal Cannula 06/23/23 07:43 36.5 C 68 18 110/62 94 Room Air 06/23/23 07:35 72 18 94 Nasal Cannula 06/23/23 07:00 62 06/23/23 05:14 36.8 C 64 18 150/82 H 94 Room Air 06/23/23 03:17 61 O2 Flow Rate 06/23/23 12:31 2 06/23/23 07:43 06/23/23 07:35 06/23/23 07:00 06/23/23 05:14 06/23/23 03:17 Laboratory Results Reviewed CBC Reviewed BMP PG Care Time/CCT Total # of Minutes Spent Total Time Spent with Patient: Total time spent is greater than 50% in coordination of care (as documented) at patient's floor/unit and/or counseling patient: Coding Level of Care Code 45471 SUB INP/OBS CARE 2/35MIN Diagnoses RSV (respiratory syncytial virus infection) B33.8 Dementia F03.90 Diabetes type 2, controlled E11.9 Hypomagnesemia E83.42
[2023-06-24 06:34] LABS: Hematocrit (blood only) 41.7 % (37.0-47.0); Hemoglobin 14.5 g/dl (12.0-16.0); Mean Corpuscular Hemoglobin 31.9 pg (25.0-34.0); Mean Corpuscular Hgb Conc 34.8 g/dL (32.0-36.0); Mean Corpuscular Volume 91.9 fL (80.0-100.0); Mean Platelet Volume 9.5 fL (9.4-12.4); Platelet Count 290 K/uL (130-400); RDW Coefficient of Variation 12.4 % (11.5-14.5); RDW Standard Deviation 41.9 fL (36.4-46.3); Red Blood Count 4.54 M/uL (4.20-5.40); White Blood Count 7.57 K/ul (4.8-10.8)
[2023-06-24 06:53] LABS: BUN Creatinine Ratio 34.2 (10-20); Calcium 9.8 mg/dl (8.6-10.3); Creatinine Clr Calc Pharmacy 53.8 ml/min; Est GFR (African American) 83.1 ml/min; Est GFR (Non-African American) 71.7 ml/min; Magnesium 1.9 mg/dl (1.7-2.4); Potassium 3.8 mmol/L (3.5-5.1)
--- NOTE | 2023-06-24 09:30 | Hospitalist Progress Note ---
Date of Service June 24, 2023 Assessment & Plan (1) RSV (respiratory syncytial virus infection): Plan: -Worsening SOB x 2-3 days with a witnessed ground-level fall on 06/19 -RSV + on arrival -Leukocytosis to 17.30 with a neutrophil predominance on admission - WNL on -CXR with interstitial thickening but no airspace opacities -RSV bronchitis -Patient received Rocephin 2000 mg IV in the ED; will defer further antibiotics at this time -MRSA swab -- negative -Blood culturesno growth after 48 hours -Continue raloxifene for lung cancer -Continue Trelegy Ellipta, Singulair for COPD -DuoNeb 3 mL q6r -Guaifenesin 60 mg p.o. BID -Prednisone 40 mg daily -Supplemental oxygen as needed to maintain SpO2 >89%; -Acetaminophen as needed for pain/fever -Physical therapy recommends SNF rehab upon discharge due to high risk for continued falls, decreased tolerance to activities, and poor dynamic balance. Tentative discharge on 06/25/23. (2) Dementia: Plan: - Patient is oriented only to self at baseline - Resides in an memory care at [facility] - Seroquel 25 mg PO HS for hospital associated delirium/sundown syndrome with dementia (3) Diabetes type 2, controlled: Plan: - Glucose 219 on admission - A1c 7.4% on 06/21/2023 - Hold metformin - Lantus 11 u BID while inpatient - SSI; with target BSG range 110-140mg/dL, CF 35, carb ratio 12 -- adjust regimen as needed - Pharmacy glycemic management consult given patient is on prednisone 40 mg daily (4) Hypomagnesemia: Plan: - Mag low at 1.5 on admission - Magnesium sulfate 3 g IV given in the ED -- repleted Plan CODE STATUS: DNR/DNI VTE PPx: Lovenox 40 mg SQ q24h Admission and Anticipated Discharge Date Admission Date: June 20, 2023 Subjective Patient seen and evaluated at bedside. She was resting comfortably in bed eating breakfast, and states that she has a good appetite. She reports no complaints at this time. Per nursing, she remained calm and cooperative throughout the night. Tentative plan to DC to SNF at [facility] tomorrow, 06/25/2023. Physical Exam Physical Exam: General: No acute distress, nondiaphoretic, well-developed, well-nourished. External urinary PureWick in place. Skin: The skin was without rashes, erythema, edema. Abrasion on right knee and left hand. Cardiac: Regular rate and rhythm without murmurs gallops or rubs. Pulm: Coarse breath sounds across all lung [place] bilaterally. No acute respiratory distress. No retractions or accessory muscle use. 98% on 2 L via nasal cannula. Abdominal: Positive bowel sounds x 4. Soft, nontender, without masses or organomegaly. No guarding or rebound tenderness. Neuro: Alert and oriented x1this is patient's baseline. No focal neurological deficits. Results & Data Results & Data Vital Signs (Past 12 Hours) Vital Signs Temp Pulse Resp BP Pulse Ox O2 Del Method O2 Flow Rate 06/24/23 07:30 73 18 96 Nasal Cannula 2 06/24/23 07:05 36.4 C L 71 16 124/74 100 Nasal Cannula 2 06/24/23 00:51 36.6 C 06/24/23 00:37 Nasal Cannula 2 06/23/23 23:53 35.6 C L 75 20 111/71 98 Room Air 06/23/23 22:06 Nasal Cannula 2 Laboratory Results Reviewed CBC Reviewed BMP PG Care Time/CCT Total # of Minutes Spent Total Time Spent with Patient: Total time spent is greater than 50% in coordination of care (as documented) at patient's floor/unit and/or counseling patient: Coding Level of Care Code 06615 SUB INP/OBS CARE 2/35MIN Diagnoses RSV (respiratory syncytial virus infection) B33.8 Dementia F03.90 Diabetes type 2, controlled E11.9 Hypomagnesemia E83.42
[2023-06-24] MEDS: NovoLIN-N (NPH) PER UNIT CHARGE SQ SCH (09:52)
--- NOTE | 2023-06-24 14:11 | Pharmacy Report ---
Pharmacy Glycemic Short Note 2 - Date of Service June 24, 2023 - Glycemic Short BSG Results (Last 24 hours): 06/23/23 06/23/23 06/24/23 17:09 20:17 05:50 Glucose 137 H POC Glucose 286 H 273 H 06/24/23 06/24/23 07:58 12:14 Glucose POC Glucose 117 H 206 H OUTPATIENT ANTIDIABETIC REGIMEN: * metformin 500mg PO BID HbA1C: 7.4% ASSESSMENT: 06/23: * BSGs 78-361-989-273 mg/dL yesterday; trended upward * Basal was held yesterday, fasting this morning 117 mg/dL- continue to hold * Trialed ~0.2 units/kg of NPH with prednisone this morning along with tighter carb ratio since BSGs trended upward throughout day * Lunch BSG still elevated, will increase NPH tomorrow to 0.3 units/kg 06/21: * BSGs 131-446-342rw/dL. Received 10 units of basal and 16 units of bolus insulin yesterday. * Continues on prednisone 40mg PO daily. Decreased PO intake. * Lantus 10 units today, however will reassess basal tomorrow given decreased PO. Novolog tightened for improved prandial coverage. 06/20: * Pt is a 78 year old female with a history of DM2 on metformin at home. Pharmacy consulted to assist with inpatient glycemic management. * BSGs 515-230-809ah/dL since admission. Received 11 units of basal and 5 units of bolus insulin last night. * Receiving prednisone 40mg PO daily, diet ordered. * Will continue with Lantus 10 units daily while on steroids. Agree with Novolog moderate stress scale for now. PLAN FOR INPATIENT GLYCEMIC CONTROL: * Hold outpatient oral diabetes medications * Basal insulin * hold * 10 units of NPH with prednisone this morning, plan to increase to 17 units on 06/24 * Bolus insulin * NovoLog per scale ACHS or Q6hrs while NPO * Goal Range: Low 110 mg/dL - High 140 mg/dL * Correction Factor: 25mg/dL/unit * Nutritional / Prandial insulin per carb ratio of 1 unit per 6 grams CHO consumed
[2023-06-25 07:33] LABS: Hematocrit (blood only) 40.1 % (37.0-47.0); Hemoglobin 13.9 g/dl (12.0-16.0); Mean Corpuscular Hemoglobin 31.7 pg (25.0-34.0); Mean Corpuscular Hgb Conc 34.7 g/dL (32.0-36.0); Mean Corpuscular Volume 91.6 fL (80.0-100.0); Mean Platelet Volume 9.3 fL (9.4-12.4); Nucleated RBC # (auto) 0.02 K/uL (0.00-0.12); Nucleated RBC % (auto) 0.2 %; Platelet Count 289 K/uL (130-400); RDW Coefficient of Variation 12.1 % (11.5-14.5); RDW Standard Deviation 41.1 fL (36.4-46.3); Red Blood Count 4.38 M/uL (4.20-5.40); White Blood Count 12.32 K/ul (4.8-10.8)
[2023-06-25 07:53] LABS: BUN Creatinine Ratio 37.1 (10-20); Calcium 9.3 mg/dl (8.6-10.3); Creatinine Clr Calc Pharmacy 46.7 ml/min; Est GFR (African American) 71.9 ml/min; Est GFR (Non-African American) 62.1 ml/min; Magnesium 1.9 mg/dl (1.7-2.4); Potassium 3.8 mmol/L (3.5-5.1)
[2023-06-25] MEDS: NovoLIN-N (NPH) PER UNIT CHARGE SQ SCH (09:41)
--- NOTE | 2023-06-25 20:07 | Hospitalist Progress Note ---
Date of Service June 25, 2023 Assessment & Plan (1) RSV (respiratory syncytial virus infection): Plan: -Worsening SOB x 2-3 days with a witnessed ground-level fall on 06/19 -RSV + on arrival -Leukocytosis to 17.30 with a neutrophil predominance on admission - WNL on -CXR with interstitial thickening but no airspace opacities -RSV bronchitis -Patient received Rocephin 2000 mg IV in the ED; will defer further antibiotics at this time -MRSA swab -- negative -Blood culturesno growth after 48 hours -Continue raloxifene for lung cancer -Continue Trelegy Ellipta, Singulair for COPD -DuoNeb 3 mL q6r -Guaifenesin 60 mg p.o. BID -Prednisone 40 mg daily -Supplemental oxygen as needed to maintain SpO2 >89%; -Acetaminophen as needed for pain/fever -Physical therapy recommends SNF rehab upon discharge due to high risk for continued falls, decreased tolerance to activities, and poor dynamic balance. Tentative discharge on 06/26/23. (2) Dementia: Plan: - Patient is oriented only to self at baseline - Resides in an memory care at [facility] - Seroquel 25 mg PO HS for hospital associated delirium/sundown syndrome with dementia (3) Diabetes type 2, controlled: Plan: - Glucose 219 on admission - A1c 7.4% on 06/21/2023 - Hold metformin - Lantus 11 u BID while inpatient - SSI; with target BSG range 110-140mg/dL, CF 35, carb ratio 12 -- adjust regimen as needed - Pharmacy glycemic management consult given patient is on prednisone 40 mg daily (4) Hypomagnesemia: Plan: - Mag low at 1.5 on admission - Magnesium sulfate 3 g IV given in the ED -- repleted --mag 1.9 on 06/25/2023 Plan CODE STATUS: DNR/DNI VTE PPx: Lovenox 40 mg SQ q24h Admission and Anticipated Discharge Date Admission Date: June 20, 2023 Subjective Patient seen and evaluated at bedside. She was resting comfortably in bedside chair. She reports no complaints at this time. She is no longer on supplemental oxygen, and remaining stable on room air. Pending insurance authorization for discharge to SNF. Tentative plan to DC to SNF at [facility] tomorrow, 06/26/2023. Physical Exam Physical Exam: General: No acute distress, nondiaphoretic, well-developed, well-nourished. External urinary PureWick in place. Skin: The skin was without rashes, erythema, edema. Abrasion on right knee and left hand. Cardiac: Regular rate and rhythm without murmurs gallops or rubs. Pulm: Coarse breath sounds across all lung [place] bilaterally. No acute respiratory distress. No retractions or accessory muscle use. 93% on room air. Abdominal: Positive bowel sounds x 4. Soft, nontender, without masses or organomegaly. No guarding or rebound tenderness. Neuro: Alert and oriented x1this is patient's baseline. No focal neurological deficits. Results & Data Results & Data Vital Signs (Past 12 Hours) Vital Signs Temp Pulse Resp Resp Resp BP Pulse Ox 06/25/23 19:47 37.1 C 81 20 134/76 93 06/25/23 19:44 83 18 93 06/25/23 14:30 36.8 C 75 16 108/73 91 06/25/23 13:19 97 H 18 91 06/25/23 09:44 20 18 06/25/23 08:14 Pulse Ox Pulse Ox O2 Del Method 06/25/23 19:47 Room Air 06/25/23 19:44 Room Air 06/25/23 14:30 Room Air 06/25/23 13:19 Room Air 06/25/23 09:44 91 93 Room Air 06/25/23 08:14 Room Air Laboratory Results Reviewed CBC Reviewed chemistries PG Care Time/CCT Total # of Minutes Spent Total Time Spent with Patient: Total time spent is greater than 50% in coordination of care (as documented) at patient's floor/unit and/or counseling patient: Coding Level of Care Code 21662 SUB INP/OBS CARE 2/35MIN Diagnoses RSV (respiratory syncytial virus infection) B33.8 Dementia F03.90 Diabetes type 2, controlled E11.9 Hypomagnesemia E83.42
[2023-06-26 07:29] LABS: Hematocrit (blood only) 42.3 % (37.0-47.0); Hemoglobin 14.1 g/dl (12.0-16.0); Mean Corpuscular Hemoglobin 30.9 pg (25.0-34.0); Mean Corpuscular Hgb Conc 33.3 g/dL (32.0-36.0); Mean Corpuscular Volume 92.8 fL (80.0-100.0); Mean Platelet Volume 9.3 fL (9.4-12.4); Platelet Count 320 K/uL (130-400); RDW Coefficient of Variation 12.7 % (11.5-14.5); RDW Standard Deviation 43.3 fL (36.4-46.3); Red Blood Count 4.56 M/uL (4.20-5.40); White Blood Count 13.63 K/ul (4.8-10.8)
[2023-06-26 08:15] LABS: BUN Creatinine Ratio 39.1 (10-20); Calcium 9.5 mg/dl (8.6-10.3); Creatinine Clr Calc Pharmacy 44.2 ml/min; Est GFR (African American) 69.1 ml/min; Est GFR (Non-African American) 59.6 ml/min; Magnesium 1.9 mg/dl (1.7-2.4); Potassium 3.8 mmol/L (3.5-5.1)
--- NOTE | 2023-06-26 08:51 | Pharmacy Report ---
Pharmacy Glycemic Short Note 2 - Date of Service June 26, 2023 - Glycemic Short BSG Results (Last 24 hours): 06/25/23 06/25/23 06/25/23 11:56 17:06 20:46 Glucose POC Glucose 211 H 137 H 105 H 06/26/23 06/26/23 06:56 07:59 Glucose 100 H POC Glucose 88 OUTPATIENT ANTIDIABETIC REGIMEN: * metformin 500mg PO BID HbA1C: 7.4% (06/21/23) ASSESSMENT: 06/26/23: * Blood sugars reasonable well-controlled yesterday except for continued high at lunch time (211 mg/dL) * Received 49 units of insulin (17 units of NPH and 32 units of prandial/correctional bolus) * Tightened Novolog parameters yesterday and increased NPH w/ steroid * prednisone now discontinued * Fasting BSG of 88 mg/dL this morning, will hold basal and loosen Novolog parameters now that steroids are discontinued 06/23: * BSGs [phone] mg/dL yesterday; trended upward * Basal was held yesterday, fasting this morning 117 mg/dL- continue to hold * Trialed ~0.2 units/kg of NPH with prednisone this morning along with tighter carb ratio since BSGs trended upward throughout day * Lunch BSG still elevated, will increase NPH tomorrow to 0.3 units/kg 06/21: * BSGs 793-255-196ca/dL. Received 10 units of basal and 16 units of bolus in sulin yesterday. * Continues on prednisone 40mg PO daily. Decreased PO intake. * Lantus 10 units today, however will reassess basal tomorrow given decreased PO. Novolog tightened for improved prandial coverage. 06/20: * Pt is a 78 year old female with a history of DM2 on metformin at home. Pharmacy consulted to assist with inpatient glycemic management. * BSGs [phone]/dL since admission. Received 11 units of basal and 5 units of bolus insulin last night. * Receiving prednisone 40mg PO daily, diet ordered. * Will continue with Lantus 10 units daily while on steroids. Agree with Novolog moderate stress scale for now. PLAN FOR INPATIENT GLYCEMIC CONTROL: * Hold outpatient oral diabetes medications * Basal insulin * Lantus 0-5 units SC HS (see EHR for details) * Bolus insulin * NovoLog per scale ACHS or Q6hrs while NPO * Goal Range: Low 110 mg/dL - High 140 mg/dL * Correction Factor: 30 mg/dL/unit * Nutritional / Prandial insulin per carb ratio of 1 unit per 10 grams CHO consumed
[2023-06-26] MEDS: ESCITALOPRAM OXALATE 20 MG TAB PO ONE (09:02)
[2023-06-26] MEDS: INSULIN HUMAN NPH SC SCH (09:06)
--- NOTE | 2023-06-26 13:14 | Hospitalist Progress Note ---
Date of Service June 26, 2023 Assessment & Plan (1) RSV (respiratory syncytial virus infection): Plan: -Patient presented with worsening shortness of breath and witnessed ground-level fall -RSV positive on admission with leukocytosis, now resolved -MRSA swab and blood cultures both negative -RSV bronchitis -Continue raloxifene for lung cancer -Continue Trelegy Ellipta, Singulair for COPD -Continue DuoNeb 3 mL q6H, Guaifenesin 60 mg p.o. BID, Prednisone 40 mg daily -Supplemental oxygen as needed to maintain SpO2 >89% -Physical therapy recommends SNF rehab upon discharge. Tentative discharge on 06/28/23. (2) Dementia: Plan: - Patient is oriented only to self at baseline - Resides in an memory care at [facility] - Seroquel 25 mg PO HS for hospital associated delirium/sundown syndrome with dementia (3) Diabetes type 2, controlled: Plan: - Glucose 219 on admission - A1c 7.4% on 06/21/2023 - Hold metformin - Lantus 11 u BID while inpatient - SSI; with target BSG range 110-140mg/dL, CF 35, carb ratio 12 -- adjust regimen as needed - Pharmacy glycemic management consult given patient is on prednisone 40 mg daily (4) Hypomagnesemia: Plan: - Mag low at 1.5 on admission, repleted and WNL Plan CODE STATUS: DNR/DNI VTE PPx: Lovenox 40 mg SQ q24h Admission and Anticipated Discharge Date Admission Date: June 20, 2023 Subjective Patient seen and evaluated at bedside. She was resting comfortably in bed. She reports no complaints at this time. She is no longer on supplemental oxygen, and remaining stable on room air. Discharge to SNF at [facility] was initially intended for today, however due to bed availability, the new plan is to be discharged on 06/28/2023. Physical Exam Physical Exam: General: No acute distress, nondiaphoretic, well-developed, well-nourished. External urinary PureWick in place. Skin: The skin was without rashes, erythema, edema. Abrasion on right knee and left hand. Cardiac: Regular rate and rhythm without murmurs gallops or rubs. Pulm: Coarse breath sounds across all lung [place] bilaterally. No acute respiratory distress. No retractions or accessory muscle use. 93% on room air. Abdominal: Positive bowel sounds x 4. Soft, nontender, without masses or organomegaly. No guarding or rebound tenderness. Neuro: Alert and oriented x1this is patient's baseline. No focal neurological deficits. Results & Data Results & Data Vital Signs (Past 12 Hours) Vital Signs Temp Pulse Resp BP Pulse Ox O2 Del Method O2 Flow Rate 06/26/23 12:59 89 16 94 Room Air 06/26/23 07:37 36.6 C 81 18 138/88 98 Nasal Cannula 2 06/26/23 07:21 Room Air 06/26/23 07:15 86 93 Room Air PG Care Time/CCT Total # of Minutes Spent Total Time Spent with Patient: Total time spent is greater than 50% in coordination of care (as documented) at patient's floor/unit and/or counseling patient: Coding Level of Care Code 25277 SUB INP/OBS CARE 2/35MIN Diagnoses RSV (respiratory syncytial virus infection) B33.8 Dementia F03.90 Diabetes type 2, controlled E11.9 Hypomagnesemia E83.42
[2023-06-26] MEDS: LANTUS PER UNIT CHARGE SC SCH (21:07)
[2023-06-27 07:00] LABS: Hematocrit (blood only) 42.4 % (37.0-47.0); Hemoglobin 14.4 g/dl (12.0-16.0); Mean Corpuscular Hemoglobin 31.8 pg (25.0-34.0); Mean Corpuscular Volume 93.6 fL (80.0-100.0); Mean Platelet Volume 9.5 fL (9.4-12.4); Platelet Count 318 K/uL (130-400); RDW Coefficient of Variation 12.8 % (11.5-14.5); RDW Standard Deviation 44.3 fL (36.4-46.3); Red Blood Count 4.53 M/uL (4.20-5.40); White Blood Count 12.73 K/ul (4.8-10.8)
[2023-06-27 08:03] LABS: Calcium 9.4 mg/dl (8.6-10.3); Magnesium 1.9 mg/dl (1.7-2.4); Potassium 4.2 mmol/L (3.5-5.1)
[2023-06-27 08:09] LABS: BUN Creatinine Ratio 34.4 (10-20); Creatinine Clr Calc Pharmacy 43.8 ml/min; Est GFR (African American) 68.2 ml/min; Est GFR (Non-African American) 58.9 ml/min
--- NOTE | 2023-06-27 09:58 | Hospitalist Progress Note ---
Date of Service June 27, 2023 Assessment & Plan (1) RSV (respiratory syncytial virus infection): Plan: -Patient presented with worsening shortness of breath and witnessed ground-level fall -RSV positive on admission with leukocytosis -MRSA swab and blood cultures both negative -RSV bronchitis -Continue raloxifene for lung cancer -Continue Trelegy Ellipta, Singulair for COPD -Continue DuoNeb 3 mL q6H, Guaifenesin 60 mg p.o. BID, Prednisone 40 mg daily -Supplemental oxygen as needed to maintain SpO2 >89% -Physical therapy recommends SNF rehab upon discharge. Tentative discharge on 06/28/23. (2) Dementia: Plan: - Patient is oriented only to self at baseline - Resides in an memory care at [facility] - Seroquel 25 mg PO HS for hospital associated delirium/sundown syndrome with dementia (3) Diabetes type 2, controlled: Plan: - A1c 7.4% on 06/21/2023 - Hold metformin - Lantus 11 u BID while inpatient - SSI; with target BSG range 110-140mg/dL, CF 35, carb ratio 12 -- adjust regimen as needed - Pharmacy glycemic management consult given patient is on prednisone 40 mg daily (4) Hypomagnesemia: Plan: - Mag low at 1.5 on admission, repleted and WNL Plan CODE STATUS: DNR/DNI VTE PPx: Lovenox 40 mg SQ q24h Admission and Anticipated Discharge Date Admission Date: June 20, 2023 Subjective Patient seen and evaluated at bedside. She was resting comfortably in bed drawing in a coloring book. She reports no complaints at this time. She rem ains stable on RA. Discharge to SNF at [facility] is tentatively scheduled for 06/28/2023. Physical Exam Physical Exam: General: No acute distress, nondiaphoretic, well-developed, well-nourished. External urinary PureWick in place. Skin: The skin was without rashes, erythema, edema. Abrasion on right knee and left hand. Cardiac: Regular rate and rhythm without murmurs gallops or rubs. Pulm: Coarse breath sounds across all lung [place] bilaterally. No acute respiratory distress. No retractions or accessory muscle use. 92% on room air. Abdominal: Positive bowel sounds x 4. Soft, nontender, without masses or organomegaly. No guarding or rebound tenderness. Neuro: Alert and oriented x1this is patient's baseline. No focal neurological deficits. Results & Data Results & Data Vital Signs (Past 12 Hours) Vital Signs Temp Pulse Resp BP Pulse Ox O2 Del Method 06/27/23 07:30 Room Air 06/27/23 07:27 36.5 C 79 19 130/82 92 Room Air 06/27/23 07:24 79 18 92 Room Air 06/26/23 23:00 Room Air 06/26/23 22:58 18 95 Room Air 06/26/23 22:44 36.7 C 88 20 134/77 92 Room Air Laboratory Results Reviewed CBC Reviewed BMP PG Care Time/CCT Total # of Minutes Spent Total Time Spent with Patient: Total time spent is greater than 50% in coordination of care (as documented) at patient's floor/unit and/or counseling patient: Coding Level of Care Code 93224 SUB INP/OBS CARE 2/35MIN Diagnoses RSV (respiratory syncytial virus infection) B33.8 Dementia F03.90 Diabetes type 2, controlled E11.9 Hypomagnesemia E83.42
[2023-06-28 06:29] LABS: Hemoglobin 14.2 g/dl (12.0-16.0); Mean Corpuscular Hemoglobin 31.3 pg (25.0-34.0); Mean Corpuscular Hgb Conc 33.8 g/dL (32.0-36.0); Mean Corpuscular Volume 92.5 fL (80.0-100.0); Mean Platelet Volume 9.2 fL (9.4-12.4); Platelet Count 310 K/uL (130-400); RDW Coefficient of Variation 12.7 % (11.5-14.5); RDW Standard Deviation 42.9 fL (36.4-46.3); Red Blood Count 4.54 M/uL (4.20-5.40); White Blood Count 14.56 K/ul (4.8-10.8)
[2023-06-28 06:36] LABS: BUN Creatinine Ratio 40.3 (10-20); Calcium 9.2 mg/dl (8.6-10.3); Creatinine Clr Calc Pharmacy 56.5 ml/min; Est GFR (Non-African American) 80.2 ml/min; Magnesium 1.8 mg/dl (1.7-2.4); Potassium 4.2 mmol/L (3.5-5.1)
[2023-06-28] MEDS: LANTUS PER UNIT CHARGE SC SCH (09:22)
--- NOTE | 2023-06-28 10:44 | Pharmacy Report ---
Pharmacy Glycemic Short Note 2 - Date of Service June 28, 2023 - Glycemic Short BSG Results (Last 24 hours): 06/27/23 06/27/23 06/27/23 11:53 16:41 20:23 Glucose POC Glucose 160 H 204 H 122 H 06/28/23 06/28/23 05:53 07:39 Glucose 139 H POC Glucose 141 H OUTPATIENT ANTIDIABETIC REGIMEN: * metformin 500mg PO BID HbA1C: 7.4% (06/21/23) ASSESSMENT: 06/28/23: * Patient received total of 10 units of insulin yesterday, all correctional * Fasting BSG 141 mg/dL - trending up each day, will add small dose basal 5 units daily as PO intake improving as well 06/26/23: * Blood sugars reasonable well-controlled yesterday except for continued high at lunch time (211 mg/dL) * Received 49 units of insulin (17 units of NPH and 32 units of prandial/correctional bolus) * Tightened Novolog parameters yesterday and increased NPH w/ steroid * prednisone now discontinued * Fasting BSG of 88 mg/dL this morning, will hold basal and loosen Novolog parameters now that steroids are discontinued 06/23: * BSGs 47-592-617-273 mg/dL yesterday; trended upward * Basal was held yesterday, fasting this morning 117 mg/dL- continue to hold * Trialed ~0.2 units/kg of NPH with prednisone this morning along with tighter carb ratio since BSGs trended upward throughout day * Lunch BSG still elevated, will increase NPH tomorrow to 0.3 units/kg 06/21: * BSGs 797-703-597ww/dL. Received 10 units of basal and 16 units of bolus insulin yesterday. * Continues on prednisone 40mg PO daily. Decreased PO intake. * Lantus 10 units today, however will reassess basal tomorrow given decreased PO. Novolog tightened for improved prandial coverage. 06/20: * Pt is a 78 year old female with a history of DM2 on metformin at home. Pharmacy consulted to assist with inpatient glycemic management. * BSGs 311-020-243mh/dL since admission. Received 11 units of basal and 5 units of bolus insulin last night. * Receiving prednisone 40mg PO daily, diet ordered. * Will continue with Lantus 10 units daily while on steroids. Agree with Novolog moderate stress scale for now. PLAN FOR INPATIENT GLYCEMIC CONTROL: * Hold outpatient oral diabetes medications * Basal insulin * Lantus 5 units daily * Bolus insulin * NovoLog per scale ACHS or Q6hrs while NPO * Goal Range: Low 110 mg/dL - High 140 mg/dL * Correction Factor: 30 mg/dL/unit * Nutritional / Prandial insulin per carb ratio of 1 unit per 10 grams CHO consumed
--- NOTE | 2023-06-28 22:18 | Hospitalist Progress Note ---
Date of Service June 28, 2023 Assessment & Plan (1) RSV (respiratory syncytial virus infection): Plan: -Patient presented with worsening shortness of breath and witnessed ground-level fall -RSV positive on admission with leukocytosis -MRSA swab and blood cultures both negative -RSV bronchitis -Continue raloxifene for lung cancer -Continue Trelegy Ellipta, Singulair for COPD -Continue DuoNeb 3 mL q6H, Guaifenesin 60 mg p.o. BID, Prednisone 40 mg daily -Supplemental oxygen as needed to maintain SpO2 >89% -Physical therapy recommends SNF rehab upon discharge. Tentative discharge on 06/29/23. (2) Dementia: Plan: - Patient is oriented only to self at baseline - Resides in an memory care at [facility] - Seroquel 25 mg PO HS for hospital associated delirium/sundown syndrome with dementia (3) Diabetes type 2, controlled: Plan: - A1c 7.4% on 06/21/2023 - Hold metformin - Lantus 11 u BID while inpatient - SSI; with target BSG range 110-140mg/dL, CF 35, carb ratio 12 -- adjust regimen as needed - Pharmacy glycemic management consult given patient is on prednisone 40 mg daily (4) Hypomagnesemia: Plan: - Mag low at 1.5 on admission, repleted and WNL Plan CODE STATUS: DNR/DNI VTE PPx: Lovenox 40 mg SQ q24h Admission and Anticipated Discharge Date Admission Date: June 20, 2023 Subjective 78 yo female has no new complaints. Review of Systems Review of Systems: All systems reviewed & are unremarkable except as noted in HPI & below Physical Exam Physical Exam: General: No acute distress, nondiaphoretic, well-developed, well-nourished. External urinary PureWick in place. Skin: The skin was without rashes, erythema, edema. Abrasion on right knee and left hand. Cardiac: Regular rate and rhythm without murmurs gallops or rubs. Pulm: Coarse breath sounds across all lung [place] bilaterally. No acute respiratory distress. No retractions or accessory muscle use. 92% on room air. Abdominal: Positive bowel sounds x 4. Soft, nontender, without masses or organomegaly. No guarding or rebound tenderness. Neuro: Alert and oriented x1this is patient's baseline. No focal neurological deficits. Results & Data Results & Data Vital Signs (Past 12 Hours) Vital Signs Temp Pulse Resp BP Pulse Ox O2 Del Method 06/28/23 20:26 36.8 C 103 H 20 126/83 94 Room Air 06/28/23 19:36 18 93 Room Air 06/28/23 15:17 36.3 C L 98 H 16 133/84 92 Room Air 06/28/23 12:53 87 18 92 Room Air PG Care Time/CCT Total # of Minutes Spent Total Time Spent with Patient: Total time spent is greater than 50% in coordination of care (as documented) at patient's floor/unit and/or counseling patient: Coding Level of Care Code 53971 SUB INP/OBS CARE 2/35MIN Diagnoses RSV (respiratory syncytial virus infection) B33.8 Dementia F03.90 Diabetes type 2, controlled E11.9 Hypomagnesemia E83.42 Time Spent (min) 35 Comment chart review/ first visit
[2023-06-29 07:38] LABS: Hematocrit (blood only) 40.8 % (37.0-47.0); Hemoglobin 13.7 g/dl (12.0-16.0); Mean Corpuscular Hemoglobin 31.4 pg (25.0-34.0); Mean Corpuscular Hgb Conc 33.6 g/dL (32.0-36.0); Mean Corpuscular Volume 93.6 fL (80.0-100.0); Mean Platelet Volume 9.1 fL (9.4-12.4); Platelet Count 277 K/uL (130-400); RDW Coefficient of Variation 12.8 % (11.5-14.5); RDW Standard Deviation 43.9 fL (36.4-46.3); Red Blood Count 4.36 M/uL (4.20-5.40); White Blood Count 20.08 K/ul (4.8-10.8)
[2023-06-29 08:31] LABS: Calcium 9.2 mg/dl (8.6-10.3); Potassium 3.7 mmol/L (3.5-5.1)
[2023-06-29 08:36] LABS: BUN Creatinine Ratio 41.4 (10-20); Creatinine Clr Calc Pharmacy 41.1 ml/min; Est GFR (African American) 63.3 ml/min; Est GFR (Non-African American) 54.6 ml/min
[2023-06-29] MEDS: LANTUS PER UNIT CHARGE SC SCH (08:42)
--- NOTE | 2023-06-29 11:55 | Discharge Summary ---
Date of Service June 29, 2023 Admission HPI Per Admitting Provider Mae is a 78-year-old female with PMH of lung cancer, COPD, T2DM, gastric ulcer, HTN, OA, and dementia. She presented from [facility] for worsening SOB at rest over several days. She was reportedly hypoxic at 50% on RA, and noted that she was feeling "rotten" and pointing to her chest and stomach. She also reportedly had a witnessed ground-level fall on 06/19; the residential program coordinator was present and helped lower her to the ground where she sustained an abrasion on her right knee. Patient uses a rollator walker at baseline. Triage/EMS note mentioned fall on blood thinners, however review of med rec does not currently have her on blood thinners. No head strike. Patient is a poor historian at baseline due to her underlying dementia (only oriented to name and ). Hypertensive at 158/96 at time of admission; SpO2 95% on 2 LNC. ED course: Rocephin 2000 mg IV Solu-Medrol 60 mg IV DuoNeb 3 mL NSS 500 mL IV Magnesium sulfate 1 g IV Unable to obtain ROS in patient's current state. Spoke to patient's POA/niece (Kristin) at the bedside, as well as brother (Bonifacio), and provided update regarding admission/RSV status. Confirmed that her code status was DNR/DNI. Discharge Exam General: No acute distress, nondiaphoretic, well-developed, well-nourished. External urinary PureWick in place. Skin: The skin was without rashes, erythema, edema. Abrasion on right knee and left hand. Cardiac: Regular rate and rhythm without murmurs gallops or rubs. Pulm: Coarse breath sounds across all lung [place] bilaterally. No acute respiratory distress. No retractions or accessory muscle use. 92% on room air. Abdominal: Positive bowel sounds x 4. Soft, nontender, without masses or organomegaly. No guarding or rebound tenderness. Neuro: Alert and oriented x1this is patient's baseline. No focal neurological deficits. Discharge Data Allergies Allergy/AdvReac Type Severity Reaction Status Date / Time Sulfa (Sulfonamide Allergy Severe "ALMOST Verified 06/20/23 16:29 Antibiotics) " levofloxacin [From Levaquin] AdvReac Intermediate UPSET Verified 06/20/23 16:29 STOMACH adhesive AdvReac Mild RASH ON Verified 06/20/23 16:29 SKIN/SKIN IRRITATION Consultations 06/20/23 16:24 ED Decision to Admit Stat Hospital Course (1) RSV (respiratory syncytial virus infection): -Patient presented with worsening shortness of breath and witnessed ground-level fall -RSV positive on admission with leukocytosis -MRSA swab and blood cultures both negative -RSV bronchitis -Continue raloxifene for lung cancer -Continue Trelegy Ellipta, Singulair for COPD -Continue DuoNeb 3 mL q6H, Guaifenesin 60 mg p.o. BID, Prednisone 40 mg daily -Supplemental oxygen as needed to maintain SpO2 >89% -Physical therapy recommends SNF rehab upon discharge. Tentative discharge on 06/29/23. (2) Dementia: - Patient is oriented only to self at baseline - Resides in an memory care at [facility] - Seroquel 25 mg PO HS for hospital associated delirium/sundown syndrome with dementia (3) Diabetes type 2, controlled: - A1c 7.4% on 06/21/2023 - Hold metformin - Lantus 11 u BID while inpatient - SSI; with target BSG range 110-140mg/dL, CF 35, carb ratio 12 -- adjust regimen as needed - Pharmacy glycemic management consult given patient is on prednisone 40 mg daily (4) Hypomagnesemia: - Mag low at 1.5 on admission, repleted and WNL Plan CODE STATUS: DNR/DNI VTE PPx: Lovenox 40 mg SQ q24h Discharge Plan Discharge Items Reason For Visit: SOB/DYSPNEA Condition on Discharge: Fair Follow-up/Referrals: Pro,Kolton Hwang MD [Primary Care Provider] - Medications and DC Order Prescriptions: No Action ipratropium-albuterol 0.5 mg-3 mg(2.5 mg base)/3 mL solution for nebulization 3 ml INH QID PRN (Reason: SHORT OF BREATH) Qty: 120 5RF spironolactone 25 mg tablet 25 mg PO QAM Qty: 90 3RF hydrochlorothiazide 25 mg tablet 25 mg PO QAM Qty: 90 3RF metformin 500 mg tablet extended release 24 hr 500 mg PO BID Qty: 180 1RF atorvastatin 10 mg tablet 10 mg PO HS Qty: 90 3RF cyanocobalamin (vitamin B-12) 1,000 mcg capsule 1,000 mcg PO QAM cholecalciferol (vitamin D3) 1,000 unit capsule 1,000 units PO QAM albuterol sulfate [Ventolin HFA] 90 mcg/actuation HFA aerosol inhaler 2 puff inhalation Q6H PRN (Reason: shortness of breath or wheezing) Qty: 8.5 4RF Trelegy Ellipta 100-62.5-25 mcg blister with device 1 inh inhalation DAILY Qty: 180 4RF famotidine 10 mg tablet 10 mg PO DAILY clotrimazole-betamethasone 1-0.05 % cream 1 applic topical BID PRN (Reason: Rash) prednisone 20 mg Tablet 40 mg PO DAILY Rx Instructions: STARTING 06/21/23 FOR 7 DAYS NOT STARTED YET amoxicillin 500 mg Tablet 500 mg PO DIRECTED PRN (Reason: PRIOR TO DENTAL APPT.) levothyroxine 100 mcg tablet 100 mcg PO DAILYBB amoxicillin-pot clavulanate [Augmentin] 500-125 mg Tablet 1 tab PO TID Rx Instructions: STARTING 06/21/23 WITH 1400 DOSE FOR 7 DAYS. NOT GIVEN YET PER MAR escitalopram oxalate 10 mg tablet 10 mg PO QAM raloxifene [Evista] 60 mg tablet 60 mg PO QAM montelukast 10 mg tablet 10 mg PO QPM Admission Data Admit Date/Time: 06/20/23 17:32 Attending Provider: Edward Castrejon Admit Provider: Mike Orozco Primary Care Provider: Kolton Calix Other Providers: Melanie Daly [place]; Mike Orozco Coding Diagnoses RSV (respiratory syncytial virus infection) B33.8 Dementia F03.90 Diabetes type 2, controlled E11.9 Hypomagnesemia E83.42
== END 2023-06-29 14:16 | DRG 202 ==
LOC: ED 14:38 → SUATTDRO 17:32 → EDINP 17:32 → 2W 21:58 → 3N 06-26 22:42